=== PATIENT | female | born 1955 | race Caucasian/White ===

== ENCOUNTER 2023-01-30 06:46 | Inpatient (IN) | payer OTHER ==
--- OUTSIDE RECORDS SUMMARY | 2023-01-30 06:54 | XMS REPORT | Continuity of Care Document ---
:1955 Author Organization [facility] t Address [address] [facility] [address] [place] [address] Care Team Providers Name Role Phone Nini Sheppard Attending Clinician Unavailable Maria Esther Sheikh Attending Clinician Unavailable Radiology Attending Clinician Unavailable RADIOLOGY Attending Clinician Unavailable Doctor Unassigned, [place] Attending Clinician Unavailable Payers Payer Name Policy Type Policy Number Effective Date Expiration Date Ben vaughn UNITED 53 [id number] 2021 Common HEALTHCARE DUAL 00:00:00 Spirit - [facility] United 53 [id number] Common [facility] Spirit - [facility] Problems Condition Condition Condition Status Onset Resolution Last Treating Co mments Source Name Details Category Date Date Treatment Clinician Date [id number] Mixed Problem Common hyperlipid Spirit emia - [facility] Body mass BMI Problem Common index 40+ 50.0-59.9, Spi rit - severely adult - [facility] obese [facility] Mild Mild Problem Common chronic chronic Spirit obstructiv obstructiv - [facility]I [facility] pulmonary pulmonary [facility] Hypertensi HTN Problem Commo n on (hypertens Spirit ion) - [facility] Viral Viral Problem Common hepatitis hepatitis Spir it [facility] [id number] Cough Problem Common [facility] Depression Depression Problem C ommon [facility] [id number] Primary Problem Commo n osteoarthr Spirit itis of - [facility] both knees [facility] [id number] Unsteady Problem Commo n gait Spirit [facility] [id number] Neuropathy Problem C ommon [id number] involving Spirit both lower - [facility] extremitie [facility] [id number] Other Problem Common chronic Spirit pain [facility] [id number] Walker as Problem Com mon ambulation Spirit aid [facility] [id number] History of Problem Co mmon diabetes [facility] mellitus [facility] [id number] History of Problem Co mmon fall Spirit [facility] [id number] Morbid Problem Common obesity [facility] [id number] Yeast Problem Common infection Spirit of the [facility] skin [facility] [phone] COPD with Problem Com mon acute Spirit lower [facility] respirator [facility] infection [facility] [id number] COPD with Problem Comm on lower Spirit respirator - [facility] y [facility] [id number] Mixed Problem Common incontinen Spirit ce [facility] [phone] Need for Problem Comm on assistance Spirit due to - [facility]I unsteady [facility] Allergies, Adverse Reactions, Alerts Allergy Allergy Status Severity Reaction(s) Onset Inactive Treating Comm ents Source Name Type Date Date Clinician NO KNOWN Drug Active Univers [facility]ERGIE Class [facility] sulfacet sulfacet Active Unknown Commo n amide amide Spirit [facility] aspirin aspirin Active Unknown Common [facility] Social History Social Habit Start Date Stop Date Quantity Comments Source Exposure to SARS-CoV-2 Not sure [facility] History of Tobacco Use Co mmon [facility] Sex Assigned At Com mon Spirit [facility] Smoking Status Start Date Stop Date Source Unknown if ever smoked [facility] Former Smoker 2022-08-20 00:00:2022-08-20 00:00:00 Common S pirit - [facility]ter Never Smoker Common Spirit - [facility] Medications Ordered Filled Start Stop Current Ordering Indication Dosage Frequency Signature Comments Components Source Medication Medication Date Date Medication? Clinician (SIG) Name Name Ozempic (1 Ozempic (2021-11- No Ozempic (1 MG/DOSE) 2 MG/DOSE) 2 0-13 12-11 MG/DOSE) 2 MG/1.5ML MG/1.5ML 00:00: 00:00 MG/1.5ML 00 :00 Ozempic (1 Ozempic (2021-11- No Ozempic (1 MG/DOSE) 2 MG/DOSE) 2 0-13 12-11 MG/DOSE) 2 MG/1.5ML MG/1.5ML 00:00: 00:00 MG/1.5ML 00 :00 Ozempic (1 Ozempic (2021-11- No Ozempic (1 MG/DOSE) 2 MG/DOSE) 2 0-13 12-11 MG/DOSE) 2 MG/1.5ML MG/1.5ML 00:00: 00:00 MG/1.5ML 00 :00 Ozempic (1 Ozempic (2021-11- No Ozempic (1 MG/DOSE) 2 MG/DOSE) 2 0-13 12-11 MG/DOSE) 2 MG/1.5ML MG/1.5ML 00:00: 00:00 MG/1.5ML 00 :00 Ozempic (1 Ozempic (2021-11- No Ozempic (1 MG/DOSE) 2 MG/DOSE) 2 0-13 12-11 MG/DOSE) 2 MG/1.5ML MG/1.5ML 00:00: 00:00 MG/1.5ML 00 :00 Ozempic (1 Ozempic (2021-11- No Ozempic (1 MG/DOSE) 2 MG/DOSE) 2 0-13 12-11 MG/DOSE) 2 MG/1.5ML MG/1.5ML 00:00: 00:00 MG/1.5ML 00 :00 Ozempic (1 Ozempic (1 2021-11- No Ozempic (1 MG/DOSE) 2 MG/DOSE) 2 0-13 12-11 MG/DOSE) 2 MG/1.5ML MG/1.5ML 00:00: 00:00 MG/1.5ML 00 :00 Macrobid Macrobid 2021-11- No 1{capsu BID Macrobid 100 MG 100 MG 008-30 le_with 100 MG 00:00: 00:00 _food} 00 :00 Macrobid Macrobid 2021-11- No 1{capsu BID Macrobid 100 MG 100 MG 008-30 le_with 100 MG 00:00: 00:00 _food} 00 :00 Macrobid Macrobid 2021-11- No 1{capsu BID Macrobid 100 MG 100 MG 008-30 le_with 100 MG 00:00: 00:00 _food} 00 :00 Macrobid Macrobid 2021- No 1{capsu BID Macrobid 100 MG 100 MG 06-26 le_with 100 MG 00:00: 00:00 _food} 00 :00 Macrobid Macrobid 2021- No 1{capsu BID Macrobid 100 MG 100 MG 06-26 le_with 100 MG 00:00: 00:00 _food} 00 :00 Macrobid Macrobid 2021- No 1{capsu BID Macrobid 100 MG 100 MG 06-26 le_with 100 MG 00:00: 00:00 _food} 00 :00 Ketoconazol Ketoconazol 2021- No 1{appli BID Ketoconazo e 2 % e 2 % 06-20 cation_ le 2 % 00:00: 00:00 to_affe 00 :00 cted_ar ea} Ketoconazol Ketoconazol 2021- No 1{appli BID Ketoconazo e 2 % e 2 % 06-20 cation_ le 2 % 00:00: 00:00 to_affe 00 :00 cted_ar ea} Ketoconazol Ketoconazol 2021- No 1{appli BID Ketoconazo e 2 % e 2 % 807-04 cation_ le 2 % 00:00: 00:00 to_affe 00 :00 cted_ar ea} Ketoconazol Ketoconazol 2021- No 1{appli BID Ketoconazo e 2 % e 2 % 825 cation_ le 2 % 00:00: 00:00 to_affe 00 :00 cted_ar ea} Ketoconazol Ketoconazol 2021- No 1{appli BID Ketoconazo e 2 % e 2 % 807-04 cation_ le 2 % 00:00: 00:00 to_affe 00 :00 cted_ar ea} Ketoconazol Ketoconazol 2021- No 1{appli BID Ketoconazo e 2 % e 2 % 06-20 cation_ le 2 % 00:00: 00:00 to_affe 00 :00 cted_ar ea} Ketoconazol Ketoconazol 2021- No 1{appli BID Ketoconazo e 2 % e 2 % 06-20 cation_ le 2 % 00:00: 00:00 to_affe 00 :00 cted_ar ea} Albuterol Albuterol 2018-11 No TID Albuterol Sulfate Sulfate 2-06 Sulfate (2.5 (2.5 00:00: (2.5 MG/3ML) MG/3ML) 00 MG/3ML) 0.083% 0.083% 0.083% Albuterol Albuterol 2018-11 No TID Albuterol Sulfate Sulfate 2-06 Sulfate (2.5 (2.5 00:00: (2.5 MG/3ML) MG/3ML) 00 MG/3ML) 0.083% 0.083% 0.083% Albuterol Albuterol 2018-11 No TID Albuterol Sulfate Sulfate 2-06 Sulfate (2.5 (2.5 00:00: (2.5 MG/3ML) MG/3ML) 00 MG/3ML) 0.083% 0.083% 0.083% Albuterol Albuterol 2018-11 No TID Albuterol Sulfate Sulfate 2-06 Sulfate (2.5 (2.5 00:00: (2.5 MG/3ML) MG/3ML) 00 MG/3ML) 0.083% 0.083% 0.083% Albuterol Albuterol 2018-11 No TID Albuterol Sulfate Sulfate 2-06 Sulfate (2.5 (2.5 00:00: (2.5 MG/3ML) MG/3ML) 00 MG/3ML) 0.083% 0.083% 0.083% Albuterol Albuterol 2018-11 No TID Albuterol Sulfate Sulfate 2-06 Sulfate (2.5 (2.5 00:00: (2.5 MG/3ML) MG/3ML) 00 MG/3ML) 0.083% 0.083% 0.083% Albuterol Albuterol 2018-11 No TID Albuterol Sulfate Sulfate 2-06 Sulfate (2.5 (2.5 00:00: (2.5 MG/3ML) MG/3ML) 00 MG/3ML) 0.083% 0.083% 0.083% Albuterol Albuterol 2018-11 No TID Albuterol Sulfate Sulfate 2-06 Sulfate (2.5 (2.5 00:00: (2.5 MG/3ML) MG/3ML) 00 MG/3ML) 0.083% 0.083% 0.083% Albuterol Albuterol 2018-11 No TID Albuterol Sulfate Sulfate 2-06 Sulfate (2.5 (2.5 00:00: (2.5 MG/3ML) MG/3ML) 00 MG/3ML) 0.083% 0.083% 0.083% Albuterol Albuterol 2018-11 No TID Albuterol Sulfate Sulfate 2-06 Sulfate (2.5 (2.5 00:00: (2.5 MG/3ML) MG/3ML) 00 MG/3ML) 0.083% 0.083% 0.083% Albuterol Albuterol 2018-11 No TID Albuterol Sulfate Sulfate 2-06 Sulfate (2.5 (2.5 00:00: (2.5 MG/3ML) MG/3ML) 00 MG/3ML) 0.083% 0.083% 0.083% Albuterol Albuterol 2018-11 No TID Albuterol Sulfate Sulfate 2-06 Sulfate (2.5 (2.5 00:00: (2.5 MG/3ML) MG/3ML) 00 MG/3ML) 0.083% 0.083% 0.083% Albuterol Albuterol 2018-11 No TID Albuterol Sulfate Sulfate 2-06 Sulfate (2.5 (2.5 00:00: (2.5 MG/3ML) MG/3ML) 00 MG/3ML) 0.083% 0.083% 0.083% Albuterol Albuterol 2018-11 No TID Albuterol Sulfate Sulfate 2-06 Sulfate (2.5 (2.5 00:00: (2.5 MG/3ML) MG/3ML) 00 MG/3ML) 0.083% 0.083% 0.083% Albuterol Albuterol 2018-11 No TID Albuterol Sulfate Sulfate 2-06 Sulfate (2.5 (2.5 00:00: (2.5 MG/3ML) MG/3ML) 00 MG/3ML) 0.083% 0.083% 0.083% Albuterol Albuterol 2018-11 No TID Albuterol Sulfate Sulfate 2-06 Sulfate (2.5 (2.5 00:00: (2.5 MG/3ML) MG/3ML) 00 MG/3ML) 0.083% 0.083% 0.083% Albuterol Albuterol 2018-11 No TID Albuterol Sulfate Sulfate 2-06 Sulfate (2.5 (2.5 00:00: (2.5 MG/3ML) MG/3ML) 00 MG/3ML) 0.083% 0.083% 0.083% Albuterol Albuterol 2018-11 No TID Albuterol Sulfate Sulfate 2-06 Sulfate (2.5 (2.5 00:00: (2.5 MG/3ML) MG/3ML) 00 MG/3ML) 0.083% 0.083% 0.083% Albuterol Albuterol 2018-11 No TID Albuterol Sulfate Sulfate 2-06 Sulfate (2.5 (2.5 00:00: (2.5 MG/3ML) MG/3ML) 00 MG/3ML) 0.083% 0.083% 0.083% Albuterol Albuterol 2018-11 No TID Albuterol Sulfate Sulfate 2-06 Sulfate (2.5 (2.5 00:00: (2.5 MG/3ML) MG/3ML) 00 MG/3ML) 0.083% 0.083% 0.083% Albuterol Albuterol 2018-11 No TID Albuterol Sulfate Sulfate 2-06 Sulfate (2.5 (2.5 00:00: (2.5 MG/3ML) MG/3ML) 00 MG/3ML) 0.083% 0.083% 0.083% Albuterol Albuterol 2018-11 No TID Albuterol Sulfate Sulfate 2-06 Sulfate (2.5 (2.5 00:00: (2.5 MG/3ML) MG/3ML) 00 MG/3ML) 0.083% 0.083% 0.083% Albuterol Albuterol 2018-11 No TID Albuterol Sulfate Sulfate 2-06 Sulfate (2.5 (2.5 00:00: (2.5 MG/3ML) MG/3ML) 00 MG/3ML) 0.083% 0.083% 0.083% Albuterol Albuterol 2018-11 No TID Albuterol Sulfate Sulfate 2-06 Sulfate (2.5 (2.5 00:00: (2.5 MG/3ML) MG/3ML) 00 MG/3ML) 0.083% 0.083% 0.083% Albuterol Albuterol 2018-11 No TID Albuterol Sulfate Sulfate 2-06 Sulfate (2.5 (2.5 00:00: (2.5 MG/3ML) MG/3ML) 00 MG/3ML) 0.083% 0.083% 0.083% Albuterol Albuterol 2018-11 No TID Albuterol Sulfate Sulfate 2-06 Sulfate (2.5 (2.5 00:00: (2.5 MG/3ML) MG/3ML) 00 MG/3ML) 0.083% 0.083% 0.083% [facility] 40[facility] Common (Triamcinol (Triamcinol 9-13 S pirit one) one) 00:00: - [facility]I 00 [facility] Kenalog Kenalog 2019-0 No 40mg Common (Triamcinol (Triamcinol 9-13 S pirit one) one) 00:00: - CHI 00 [facility] Tu Kenalog 2019-0 No 40mg Common (Triamcinol (Triamcinol 9-13 S pirit one) one) 00:00: - CHI 00 [facility] 2019-0 No 40mg Common (Triamcinol (Triamcinol 9-13 S pirit one) one) 00:00: - CHI 00 [facility] 2019-0 No 40mg Common (Triamcinol (Triamcinol 9-13 S pirit one) one) 00:00: - CHI 00 [facility] Tu Kenalog 2019-0 No 40mg Common (Triamcinol (Triamcinol 9-13 S pirit one) one) 00:00: - CHI 00 [facility] Kenailyn Kenalog 2019-0 No 40mg Common (Triamcinol (Triamcinol 9-13 S pirit one) one) 00:00: - CHI 00 [facility] Kenailyn Kenalog 2019-0 No 40mg Common (Triamcinol (Triamcinol 9-13 S pirit one) one) 00:00: - CHI 00 [facility] Kenailyn Kenalog 2019-0 No 40mg Common (Triamcinol (Triamcinol 9-13 S pirit one) one) 00:00: - CHI 00 [facility] Ken[facility] 2019-0 No 40mg Common (Triamcinol (Triamcinol 9-13 S pirit one) one) 00:00: - CHI 00 [facility] Ken[facility] 2019-0 No 40mg Common (Triamcinol (Triamcinol 9-13 S pirit one) one) 00:00: - CHI 00 [facility] Kenalog Kenalog 2019-0 No 40mg Common (Triamcinol (Triamcinol 9-13 S pirit one) one) 00:00: - CHI 00 [facility] Kenalog Kenalog 2019-0 No 40mg Common (Triamcinol (Triamcinol 9-13 S pirit one) one) 00:00: - CHI 00 [facility] Kenalog Kenalog 2019-0 No 40mg Common (Triamcinol (Triamcinol 9-13 S pirit one) one) 00:00: - CHI 00 [facility] Kenalog Kenalog 2019-0 No 40mg Common (Triamcinol (Triamcinol 9-13 S pirit one) one) 00:00: - CHI 00 [facility] Kenalog Kenalog 2019-0 No 40mg Common (Triamcinol (Triamcinol 9-13 S pirit one) one) 00:00: - CHI 00 [facility] Kenalog Kenalog 2019-0 No 40mg Common (Triamcinol (Triamcinol 9-13 S pirit one) one) 00:00: - CHI 00 [facility] Kenalog Kenalog 2019-0 No 40mg Common (Triamcinol (Triamcinol 9-13 S pirit one) one) 00:00: - CHI 00 [facility] Kenalog Kenalog 2019-0 No 40mg Common (Triamcinol (Triamcinol 9-13 S pirit one) one) 00:00: - CHI 00 [facility] Kenalog Kenalog 2019-0 No 40mg Common (Triamcinol (Triamcinol 9-13 S pirit one) one) 00:00: - CHI 00 [facility] Kenalog Kenalog 2019-0 No 40mg Common (Triamcinol (Triamcinol 9-13 S pirit one) one) 00:00: - CHI 00 [facility] Kenalog Kenalog 2019-0 No 40mg Common (Triamcinol (Triamcinol 9-13 S pirit one) one) 00:00: - CHI 00 [facility] Kenalog Kenalog 2019-0 No 40mg Common (Triamcinol (Triamcinol 9-13 S pirit one) one) 00:00: - CHI 00 [facility] Tu Sheehanalog 2019-0 No 40mg Common (Triamcinol (Triamcinol 9-13 S pirit one) one) 00:00: - CHI 00 [facility] Tu Sheehanalog 2019-0 No 40mg Common (Triamcinol (Triamcinol 9-13 S pirit one) one) 00:00: - CHI 00 [facility] Nystatin Nystatin No 1{appli BID Nystatin 840272 [id number] cation_ 946305 UNIT/GM UNIT/GM to_affe UNIT/GM cted_ar ea} Mupirocin Mupirocin No 1{appli BID Mupirocin Calcium 2 % Calcium 2 % cation} Calcium 2 % Pantoprazol Pantoprazol No 1{table QD Pantoprazo e Sodium 40 e Sodium 40 t} le Sodium MG MG 40 MG Diclofenac Diclofenac No Diclofenac Sodium 75 Sodium 75 Sodium 75 MG MG MG TobraDex TobraDex No TID TobraDex 0.3-0.1 % 0.3-0.1 % 0.3-0.1 % Nystop Nystop No Nystop 368299 843257 [id number] UNIT/GM UNIT/GM UNIT/GM Trelegy Trelegy No Trelegy Ellipta Ellipta Ellipta 100-62.5-25 100-62.5-25 100-62.5-2 MCG/INH MCG/INH 5 MCG/INH Tessalon Tessalon No Tessalon Perles 100 Perles 100 Perles 100 Azelastine Azelastine No 1{drop_ BID Azelastine HCl 0.05 % HCl 0.05 % into_af HCl 0.05 % fected_ eye} Tobramycin Tobramycin No 1{drop_ 6xD Tobramycin 0.3 % 0.3 % into_af 0.3 % fected_ eye} Fluticasone Fluticasone No Fluticason Propionate Propionate e 50 MCG/ACT 50 MCG/ACT Propionate 50 MCG/ACT Mupirocin 2 Mupirocin 2 No Mupirocin % % 2 % Furosemide Furosemide No Furosemide 20 mg 20 mg 20 mg Diclofenac Diclofenac No 1{table BID Diclofenac Sodium 75 Sodium 75 t_with_ Sodium 75 MG MG food_or MG _milk} Atorvastati Atorvastati No Atorvastat n Calcium n Calcium in Calcium 20 MG 20 MG 20 MG Zolpidem Zolpidem No 1{table QD Zolpidem Tartrate ER Tartrate ER t_at_be Tartrate 12.5 MG 12.5 MG dtime_a ER 12.5 MG s_neede d} Pantoprazol Pantoprazol No 1{table QD Pantoprazo e Sodium 40 e Sodium 40 t} le Sodium MG MG 40 MG Gabapentin Gabapentin No 1{capsu TID Gabapentin 300 300 le} 300 Trelegy Trelegy No Trelegy Ellipta Ellipta Ellipta 100-62.5-25 100-62.5-25 100-62.5-2 MCG/INH MCG/INH 5 MCG/INH Diclofenac Diclofenac No Diclofenac Sodium 75 Sodium 75 Sodium 75 MG MG MG TobraDex TobraDex No TID TobraDex 0.3-0.1 % 0.3-0.1 % 0.3-0.1 % Flonase 50 Flonase 50 No 2{spray QD Flonase 50 MCG/ACT MCG/ACT _in_eac MCG/ACT h_nostr il} Anoro Anoro No Anoro Ellipta Ellipta Ellipta 62.5-25 62.5-25 62.5-25 MCG/INH MCG/INH MCG/INH Benicar 5 Benicar 5 No 1{table QD Benicar 5 MG MG t} MG FLUoxetine FLUoxetine No 1{capsu QD FLUoxetine HCl 40 MG HCl 40 MG le} HCl 40 MG Ozempic (2 Ozempic (2 No Ozempic (2 MG/DOSE) 8 MG/DOSE) 8 MG/DOSE) 8 MG/3ML MG/3ML MG/3ML DULoxetine DULoxetine No 1{capsu QD DULoxetine HCl 60 MG HCl 60 MG le} HCl 60 MG Nystop Nystop No Nystop 329639 [id number] 291783 UNIT/GM UNIT/GM UNIT/GM Proventil Proventil No 2{puffs QID Proventil HFA 108 (90 HFA 108 (90 _as_nee HFA 108 Base) Base) ded} (90 Base) MCG/ACT MCG/ACT MCG/ACT Potassium Potassium No Potassium Chloride ER Chloride ER Chloride 10 10 ER 10 Mupirocin Mupirocin No 1{appli BID Mupirocin Calcium 2 % Calcium 2 % cation} Calcium 2 % Zolpidem Zolpidem No 1{table QD Zolpidem Tartrate ER Tartrate ER t_at_be Tartrate 12.5 MG 12.5 MG dtime_a ER 12.5 MG s_neede d} Nystatin-Tr Nystatin-Tr No 1{appli Nystatin-T iamcinolone iamcinolone cation_ riamcinolo 176678-3.1 563329-2.1 to_affe ne UNIT/GM UNIT/GM cted_ar 158082-9.1 ea} UNIT/GM Gabapentin Gabapentin No 1{capsu TID Gabapentin 300 300 le} 300 Diclofenac Diclofenac No Diclofenac Sodium 75 Sodium 75 Sodium 75 MG MG MG DULoxetine DULoxetine No 1{capsu QD DULoxetine HCl 60 MG HCl 60 MG le} HCl 60 MG Azelastine Azelastine No 1{drop_ BID Azelastine HCl 0.05 % HCl 0.05 % into_af HCl 0.05 % fected_ eye} FLUoxetine FLUoxetine No 1{capsu QD FLUoxetine HCl 40 MG HCl 40 MG le} HCl 40 MG Benicar 5 Benicar 5 No 1{table QD Benicar 5 MG MG t} MG Nystop Nystop No Nystop 552005 433751 431122 UNIT/GM UNIT/GM UNIT/GM Fluticasone Fluticasone No Fluticason Propionate Propionate e 50 MCG/ACT 50 MCG/ACT Propionate 50 MCG/ACT Atorvastati Atorvastati No 1{table QD Atorvastat n Calcium n Calcium t} in Calcium 20 MG 20 MG 20 MG Mupirocin Mupirocin No 1{appli BID Mupirocin Calcium 2 % Calcium 2 % cation} Calcium 2 % Tessalon Tessalon No Tessalon Perles 100 Perles 100 Perles 100 Furosemide Furosemide No Furosemide 20 mg 20 mg 20 mg Tobramycin Tobramycin No 1{drop_ 6xD Tobramycin 0.3 % 0.3 % into_af 0.3 % fected_ eye} Nystatin Nystatin No 1{appli BID Nystatin 312122 169393 cation_ 025630 UNIT/GM UNIT/GM to_affe UNIT/GM cted_ar ea} Benzonatate Benzonatate No Benzonatat 100 MG 100 MG e 100 MG Flonase 50 Flonase 50 No 2{spray QD Flonase 50 MCG/ACT MCG/ACT _in_eac MCG/ACT h_nostr il} TobraDex TobraDex No TID TobraDex 0.3-0.1 % 0.3-0.1 % 0.3-0.1 % Proventil Proventil No 2{puffs QID Proventil HFA 108 (90 HFA 108 (90 _as_nee HFA 108 Base) Base) ded} (90 Base) MCG/ACT MCG/ACT MCG/ACT Pantoprazol Pantoprazol No 1{table QD Pantoprazo e Sodium 40 e Sodium 40 t} le Sodium MG MG 40 MG Anoro Anoro No Anoro Ellipta Ellipta Ellipta 62.5-25 62.5-25 62.5-25 MCG/INH MCG/INH MCG/INH Potassium Potassium No Potassium Chloride ER Chloride ER Chloride 10 10 ER 10 Mupirocin 2 Mupirocin 2 No Mupirocin % % 2 % Trelegy Trelegy No Trelegy Ellipta Ellipta Ellipta 100-62.5-25 100-62.5-25 100-62.5-2 MCG/INH MCG/INH 5 MCG/INH TobraDex TobraDex No TID TobraDex 0.3-0.1 % 0.3-0.1 % 0.3-0.1 % Mupirocin Mupirocin No 1{appli BID Mupirocin Calcium 2 % Calcium 2 % cation} Calcium 2 % Benzonatate Benzonatate No Benzonatat 100 MG 100 MG e 100 MG Nystop Nystop No Nystop 386774 444189 363224 UNIT/GM UNIT/GM UNIT/GM Azelastine Azelastine No 1{drop_ BID Azelastine HCl 0.05 % HCl 0.05 % into_af HCl 0.05 % fected_ eye} Gabapentin Gabapentin No 1{capsu TID Gabapentin 300 300 le} 300 Tobramycin Tobramycin No 1{drop_ 6xD Tobramycin 0.3 % 0.3 % into_af 0.3 % fected_ eye} Benicar 5 Benicar 5 No 1{table QD Benicar 5 MG MG t} MG Diclofenac Diclofenac No 1{table BID Diclofenac Sodium 75 Sodium 75 t_with_ Sodium 75 MG MG food_or MG _milk} Zolpidem Zolpidem No 1{table QD Zolpidem Tartrate ER Tartrate ER t_at_be Tartrate 12.5 MG 12.5 MG dtime_a ER 12.5 MG s_neede d} Nystatin-Tr Nystatin-Tr No 1{appli Nystatin-T iamcinolone iamcinolone cation_ riamcinolo 482422-3.1 944209-5.1 to_affe ne UNIT/GM UNIT/GM cted_ar 582861-3.1 ea} UNIT/GM Anoro Anoro No Anoro Ellipta Ellipta Ellipta 62.5-25 62.5-25 62.5-25 MCG/INH MCG/INH MCG/INH Proventil Proventil No 2{puffs QID Proventil HFA 108 (90 HFA 108 (90 _as_nee HFA 108 Base) Base) ded} (90 Base) MCG/ACT MCG/ACT MCG/ACT Tessalon Tessalon No Tessalon Perles 100 Perles 100 Perles 100 Diclofenac Diclofenac No Diclofenac Sodium 75 Sodium 75 Sodium 75 MG MG MG Trelegy Trelegy No Trelegy Ellipta Ellipta Ellipta 100-62.5-25 100-62.5-25 100-62.5-2 MCG/INH MCG/INH 5 MCG/INH DULoxetine DULoxetine No 1{capsu QD DULoxetine HCl 60 MG HCl 60 MG le} HCl 60 MG FLUoxetine FLUoxetine No 1{capsu QD FLUoxetine HCl 40 MG HCl 40 MG le} HCl 40 MG Nystop Nystop No Nystop 029811 785142 352030 UNIT/GM UNIT/GM UNIT/GM Mupirocin 2 Mupirocin 2 No Mupirocin % % 2 % Nystatin Nystatin No 1{appli BID Nystatin 291280 697281 cation_ 229379 UNIT/GM UNIT/GM to_affe UNIT/GM cted_ar ea} Potassium Potassium No Potassium Chloride ER Chloride ER Chloride 10 10 ER 10 Fluticasone Fluticasone No Fluticason Propionate Propionate e 50 MCG/ACT 50 MCG/ACT Propionate 50 MCG/ACT Furosemide Furosemide No Furosemide 20 mg 20 mg 20 mg Flonase 50 Flonase 50 No 2{spray QD Flonase 50 MCG/ACT MCG/ACT _in_eac MCG/ACT h_nostr il} Pantoprazol Pantoprazol No 1{table QD Pantoprazo e Sodium 40 e Sodium 40 t} le Sodium MG MG 40 MG Atorvastati Atorvastati No 1{table QD Atorvastat n Calcium n Calcium t} in Calcium 20 MG 20 MG 20 MG TobraDex TobraDex No TID TobraDex 0.3-0.1 % 0.3-0.1 % 0.3-0.1 % Mupirocin Mupirocin No 1{appli BID Mupirocin Calcium 2 % Calcium 2 % cation} Calcium 2 % Benzonatate Benzonatate No Benzonatat 100 MG 100 MG e 100 MG Nystop Nystop No Nystop 190899 [id number] UNIT/GM UNIT/GM UNIT/GM Azelastine Azelastine No 1{drop_ BID Azelastine HCl 0.05 % HCl 0.05 % into_af HCl 0.05 % fected_ eye} Gabapentin Gabapentin No 1{capsu TID Gabapentin 300 300 le} 300 Tobramycin Tobramycin No 1{drop_ 6xD Tobramycin 0.3 % 0.3 % into_af 0.3 % fected_ eye} Benicar 5 Benicar 5 No 1{table QD Benicar 5 MG MG t} MG Diclofenac Diclofenac No 1{table BID Diclofenac Sodium 75 Sodium 75 t_with_ Sodium 75 MG MG food_or MG _milk} Zolpidem Zolpidem No 1{table QD Zolpidem Tartrate ER Tartrate ER t_at_be Tartrate 12.5 MG 12.5 MG dtime_a ER 12.5 MG s_neede d} Nystatin-Tr Nystatin-Tr No 1{appli Nystatin-T iamcinolone iamcinolone cation_ riamcinolo 281192-7.1 971668-6.1 to_affe ne UNIT/GM UNIT/GM cted_ar 778268-4.1 ea} UNIT/GM Anoro Anoro No Anoro Ellipta Ellipta Ellipta 62.5-25 62.5-25 62.5-25 MCG/INH MCG/INH MCG/INH Proventil Proventil No 2{puffs QID Proventil HFA 108 (90 HFA 108 (90 _as_nee HFA 108 Base) Base) ded} (90 Base) MCG/ACT MCG/ACT MCG/ACT Tessalon Tessalon No Tessalon Perles 100 Perles 100 Perles 100 Diclofenac Diclofenac No Diclofenac Sodium 75 Sodium 75 Sodium 75 MG MG MG Trelegy Trelegy No Trelegy Ellipta Ellipta Ellipta 100-62.5-25 100-62.5-25 100-62.5-2 MCG/INH MCG/INH 5 MCG/INH DULoxetine DULoxetine No 1{capsu QD DULoxetine HCl 60 MG HCl 60 MG le} HCl 60 MG FLUoxetine FLUoxetine No 1{capsu QD FLUoxetine HCl 40 MG HCl 40 MG le} HCl 40 MG Nystop Nystop No Nystop [id number] UNIT/GM UNIT/GM UNIT/GM Mupirocin 2 Mupirocin 2 No Mupirocin % % 2 % Nystatin Nystatin No 1{appli BID Nystatin 026809 [id number] cation_ [id number] UNIT/GM UNIT/GM to_affe UNIT/GM cted_ar ea} Potassium Potassium No Potassium Chloride ER Chloride ER Chloride 10 10 ER 10 Fluticasone Fluticasone No Fluticason Propionate Propionate e 50 MCG/ACT 50 MCG/ACT Propionate 50 MCG/ACT Furosemide Furosemide No Furosemide 20 mg 20 mg 20 mg Flonase 50 Flonase 50 No 2{spray QD Flonase 50 MCG/ACT MCG/ACT _in_eac MCG/ACT h_nostr il} Pantoprazol Pantoprazol No 1{table QD Pantoprazo e Sodium 40 e Sodium 40 t} le Sodium MG MG 40 MG Atorvastati Atorvastati No 1{table QD Atorvastat n Calcium n Calcium t} in Calcium 20 MG 20 MG 20 MG Tessalon Tessalon No Tessalon Perles 100 Perles 100 Perles 100 Furosemide Furosemide No Furosemide 20 mg 20 mg 20 mg Atorvastati Atorvastati No 1{table QD Atorvastat n Calcium n Calcium t} in Calcium 20 MG 20 MG 20 MG Flonase 50 Flonase 50 No 2{spray QD Flonase 50 MCG/ACT MCG/ACT _in_eac MCG/ACT h_nostr il} Potassium Potassium No Potassium Chloride ER Chloride ER Chloride 10 10 ER 10 Nystatin Nystatin No 1{appli BID Nystatin 410082 138836 cation_ 097414 UNIT/GM UNIT/GM to_affe UNIT/GM cted_ar ea} Anoro Anoro No Anoro Ellipta Ellipta Ellipta 62.5-25 62.5-25 62.5-25 MCG/INH MCG/INH MCG/INH Nystatin-Tr Nystatin-Tr No 1{appli Nystatin-T iamcinolone iamcinolone cation_ riamcinolo 076129-2.1 968200-3.1 to_affe ne UNIT/GM UNIT/GM cted_ar 482461-1.1 ea} UNIT/GM Trelegy Trelegy No Trelegy Ellipta Ellipta Ellipta 100-62.5-25 100-62.5-25 100-62.5-2 MCG/INH MCG/INH 5 MCG/INH DULoxetine DULoxetine No 1{capsu QD DULoxetine HCl 60 MG HCl 60 MG le} HCl 60 MG Diclofenac Diclofenac No Diclofenac Sodium 75 Sodium 75 Sodium 75 MG MG MG TobraDex TobraDex No TID TobraDex 0.3-0.1 % 0.3-0.1 % 0.3-0.1 % FLUoxetine FLUoxetine No 1{capsu QD FLUoxetine HCl 40 MG HCl 40 MG le} HCl 40 MG Nystop Nystop No Nystop 837984 759818 [id number] UNIT/GM UNIT/GM UNIT/GM Benzonatate Benzonatate No Benzonatat 100 MG 100 MG e 100 MG Gabapentin Gabapentin No 1{capsu TID Gabapentin 300 300 le} 300 Zolpidem Zolpidem No 1{table QD Zolpidem Tartrate ER Tartrate ER t_at_be Tartrate 12.5 MG 12.5 MG dtime_a ER 12.5 MG s_neede d} Mupirocin 2 Mupirocin 2 No Mupirocin % % 2 % Fluticasone Fluticasone No Fluticason Propionate Propionate e 50 MCG/ACT 50 MCG/ACT Propionate 50 MCG/ACT Nystop Nystop No Nystop 628562 790996 178565 UNIT/GM UNIT/GM UNIT/GM Pantoprazol Pantoprazol No 1{table QD Pantoprazo e Sodium 40 e Sodium 40 t} le Sodium MG MG 40 MG Diclofenac Diclofenac No 1{table BID Diclofenac Sodium 75 Sodium 75 t_with_ Sodium 75 MG MG food_or MG _milk} Benicar 5 Benicar 5 No 1{table QD Benicar 5 MG MG t} MG Tobramycin Tobramycin No 1{drop_ 6xD Tobramycin 0.3 % 0.3 % into_af 0.3 % fected_ eye} Mupirocin Mupirocin No 1{appli BID Mupirocin Calcium 2 % Calcium 2 % cation} Calcium 2 % Azelastine Azelastine No 1{drop_ BID Azelastine HCl 0.05 % HCl 0.05 % into_af HCl 0.05 % fected_ eye} Proventil Proventil No 2{puffs QID Proventil HFA 108 (90 HFA 108 (90 _as_nee HFA 108 Base) Base) ded} (90 Base) MCG/ACT MCG/ACT MCG/ACT Tessalon Tessalon No Tessalon Perles 100 Perles 100 Perles 100 Furosemide Furosemide No Furosemide 20 mg 20 mg 20 mg Atorvastati Atorvastati No 1{table QD Atorvastat n Calcium n Calcium t} in Calcium 20 MG 20 MG 20 MG Flonase 50 Flonase 50 No 2{spray QD Flonase 50 MCG/ACT MCG/ACT _in_eac MCG/ACT h_nostr il} Potassium Potassium No Potassium Chloride ER Chloride ER Chloride 10 10 ER 10 Nystatin Nystatin No 1{appli BID Nystatin 944470 997836 cation_ 495221 UNIT/GM UNIT/GM to_affe UNIT/GM cted_ar ea} Anoro Anoro No Anoro Ellipta Ellipta Ellipta 62.5-25 62.5-25 62.5-25 MCG/INH MCG/INH MCG/INH Nystatin-Tr Nystatin-Tr No 1{appli Nystatin-T iamcinolone iamcinolone cation_ riamcinolo 093058-7.1 802274-3.1 to_affe ne UNIT/GM UNIT/GM cted_ar 460225-8.1 ea} UNIT/GM Trelegy Trelegy No Trelegy Ellipta Ellipta Ellipta 100-62.5-25 100-62.5-25 100-62.5-2 MCG/INH MCG/INH 5 MCG/INH DULoxetine DULoxetine No 1{capsu QD DULoxetine HCl 60 MG HCl 60 MG le} HCl 60 MG Diclofenac Diclofenac No Diclofenac Sodium 75 Sodium 75 Sodium 75 MG MG MG TobraDex TobraDex No TID TobraDex 0.3-0.1 % 0.3-0.1 % 0.3-0.1 % FLUoxetine FLUoxetine No 1{capsu QD FLUoxetine HCl 40 MG HCl 40 MG le} HCl 40 MG Nystop Nystop No Nystop 947730 243966 507430 UNIT/GM UNIT/GM UNIT/GM Benzonatate Benzonatate No Benzonatat 100 MG 100 MG e 100 MG Gabapentin Gabapentin No 1{capsu TID Gabapentin 300 300 le} 300 Zolpidem Zolpidem No 1{table QD Zolpidem Tartrate ER Tartrate ER t_at_be Tartrate 12.5 MG 12.5 MG dtime_a ER 12.5 MG s_neede d} Mupirocin 2 Mupirocin 2 No Mupirocin % % 2 % Fluticasone Fluticasone No Fluticason Propionate Propionate e 50 MCG/ACT 50 MCG/ACT Propionate 50 MCG/ACT Nystop Nystop No Nystop 785420 170994 719518 UNIT/GM UNIT/GM UNIT/GM Pantoprazol Pantoprazol No 1{table QD Pantoprazo e Sodium 40 e Sodium 40 t} le Sodium MG MG 40 MG Diclofenac Diclofenac No 1{table BID Diclofenac Sodium 75 Sodium 75 t_with_ Sodium 75 MG MG food_or MG _milk} Benicar 5 Benicar 5 No 1{table QD Benicar 5 MG MG t} MG Tobramycin Tobramycin No 1{drop_ 6xD Tobramycin 0.3 % 0.3 % into_af 0.3 % fected_ eye} Mupirocin Mupirocin No 1{appli BID Mupirocin Calcium 2 % Calcium 2 % cation} Calcium 2 % Azelastine Azelastine No 1{drop_ BID Azelastine HCl 0.05 % HCl 0.05 % into_af HCl 0.05 % fected_ eye} Proventil Proventil No 2{puffs QID Proventil HFA 108 (90 HFA 108 (90 _as_nee HFA 108 Base) Base) ded} (90 Base) MCG/ACT MCG/ACT MCG/ACT Diclofenac Diclofenac No 1{table BID Diclofenac Sodium 75 Sodium 75 t_with_ Sodium 75 MG MG food_or MG _milk} Azelastine Azelastine No 1{drop_ BID Azelastine HCl 0.05 % HCl 0.05 % into_af HCl 0.05 % fected_ eye} Fluticasone Fluticasone No Fluticason Propionate Propionate e 50 MCG/ACT 50 MCG/ACT Propionate 50 MCG/ACT Tessalon Tessalon No Tessalon Perles 100 Perles 100 Perles 100 Nystatin-Tr Nystatin-Tr No 1{appli Nystatin-T iamcinolone iamcinolone cation_ riamcinolo 658960-2.1 299148-3.1 to_affe ne UNIT/GM UNIT/GM cted_ar 942879-0.1 ea} UNIT/GM Benzonatate Benzonatate No Benzonatat 100 MG 100 MG e 100 MG Diclofenac Diclofenac No Diclofenac Sodium 75 Sodium 75 Sodium 75 MG MG MG Mupirocin 2 Mupirocin 2 No Mupirocin % % 2 % Trelegy Trelegy No Trelegy Ellipta Ellipta Ellipta 100-62.5-25 100-62.5-25 100-62.5-2 MCG/INH MCG/INH 5 MCG/INH Nystop Nystop No Nystop 748704 854358 115458 UNIT/GM UNIT/GM UNIT/GM Nystop Nystop No Nystop 059657 480099 323557 UNIT/GM UNIT/GM UNIT/GM Potassium Potassium No Potassium Chloride ER Chloride ER Chloride 10 10 ER 10 Anoro Anoro No Anoro Ellipta Ellipta Ellipta 62.5-25 62.5-25 62.5-25 MCG/INH MCG/INH MCG/INH Gabapentin Gabapentin No 1{capsu TID Gabapentin 300 300 le} 300 Furosemide Furosemide No Furosemide 20 mg 20 mg 20 mg Mupirocin Mupirocin No 1{appli BID Mupirocin Calcium 2 % Calcium 2 % cation} Calcium 2 % Flonase 50 Flonase 50 No 2{spray QD Flonase 50 MCG/ACT MCG/ACT _in_eac MCG/ACT h_nostr il} Tobramycin Tobramycin No 1{drop_ 6xD Tobramycin 0.3 % 0.3 % into_af 0.3 % fected_ eye} Nystatin Nystatin No 1{appli BID Nystatin 057986 047145 cation_ 121118 UNIT/GM UNIT/GM to_affe UNIT/GM cted_ar ea} Benicar 5 Benicar 5 No 1{table QD Benicar 5 MG MG t} MG Proventil Proventil No 2{puffs QID Proventil HFA 108 (90 HFA 108 (90 _as_nee HFA 108 Base) Base) ded} (90 Base) MCG/ACT MCG/ACT MCG/ACT DULoxetine DULoxetine No 1{capsu QD DULoxetine HCl 60 MG HCl 60 MG le} HCl 60 MG FLUoxetine FLUoxetine No 1{capsu QD FLUoxetine HCl 40 MG HCl 40 MG le} HCl 40 MG Zolpidem Zolpidem No 1{table QD Zolpidem Tartrate ER Tartrate ER t_at_be Tartrate 12.5 MG 12.5 MG dtime_a ER 12.5 MG s_neede d} Atorvastati Atorvastati No 1{table QD Atorvastat n Calcium n Calcium t} in Calcium 20 MG 20 MG 20 MG Pantoprazol Pantoprazol No 1{table QD Pantoprazo e Sodium 40 e Sodium 40 t} le Sodium MG MG 40 MG TobraDex TobraDex No TID TobraDex 0.3-0.1 % 0.3-0.1 % 0.3-0.1 % Benzonatate Benzonatate No Benzonatat 100 MG 100 MG e 100 MG DULoxetine DULoxetine No 1{capsu QD DULoxetine HCl 60 MG HCl 60 MG le} HCl 60 MG Nystatin Nystatin No 1{appli BID Nystatin 538516 304106 cation_ 020178 UNIT/GM UNIT/GM to_affe UNIT/GM cted_ar ea} Nystop Nystop No Nystop 059878 782207 989190 UNIT/GM UNIT/GM UNIT/GM Proventil Proventil No 2{puffs QID Proventil HFA 108 (90 HFA 108 (90 _as_nee HFA 108 Base) Base) ded} (90 Base) MCG/ACT MCG/ACT MCG/ACT Anoro Anoro No Anoro Ellipta Ellipta Ellipta 62.5-25 62.5-25 62.5-25 MCG/INH MCG/INH MCG/INH Mupirocin 2 Mupirocin 2 No Mupirocin % % 2 % Potassium Potassium No Potassium Chloride ER Chloride ER Chloride 10 10 ER 10 Flonase 50 Flonase 50 No 2{spray QD Flonase 50 MCG/ACT MCG/ACT _in_eac MCG/ACT h_nostr il} Atorvastati Atorvastati No 1{table QD Atorvastat n Calcium n Calcium t} in Calcium 20 MG 20 MG 20 MG Furosemide Furosemide No Furosemide 20 mg 20 mg 20 mg Tobramycin Tobramycin No 1{drop_ 6xD Tobramycin 0.3 % 0.3 % into_af 0.3 % fected_ eye} Gabapentin Gabapentin No 1{capsu TID Gabapentin 300 300 le} 300 Azelastine Azelastine No 1{drop_ BID Azelastine HCl 0.05 % HCl 0.05 % into_af HCl 0.05 % fected_ eye} Zolpidem Zolpidem No 1{table QD Zolpidem Tartrate ER Tartrate ER t_at_be Tartrate 12.5 MG 12.5 MG dtime_a ER 12.5 MG s_neede d} FLUoxetine FLUoxetine No 1{capsu QD FLUoxetine HCl 40 MG HCl 40 MG le} HCl 40 MG Tessalon Tessalon No Tessalon Perles 100 Perles 100 Perles 100 Fluticasone Fluticasone No Fluticason Propionate Propionate e 50 MCG/ACT 50 MCG/ACT Propionate 50 MCG/ACT Diclofenac Diclofenac No 1{table BID Diclofenac Sodium 75 Sodium 75 t_with_ Sodium 75 MG MG food_or MG _milk} Benicar 5 Benicar 5 No 1{table QD Benicar 5 MG MG t} MG Mupirocin Mupirocin No 1{appli BID Mupirocin Calcium 2 % Calcium 2 % cation} Calcium 2 % Pantoprazol Pantoprazol No 1{table QD Pantoprazo e Sodium 40 e Sodium 40 t} le Sodium MG MG 40 MG Nystop Nystop No Nystop 506190 429069 562796 UNIT/GM UNIT/GM UNIT/GM TobraDex TobraDex No TID TobraDex 0.3-0.1 % 0.3-0.1 % 0.3-0.1 % Trelegy Trelegy No Trelegy Ellipta Ellipta Ellipta 100-62.5-25 100-62.5-25 100-62.5-2 MCG/INH MCG/INH 5 MCG/INH Diclofenac Diclofenac No Diclofenac Sodium 75 Sodium 75 Sodium 75 MG MG MG Nystatin Nystatin No 1{appli BID Nystatin 239980 350203 cation_ 241820 UNIT/GM UNIT/GM to_affe UNIT/GM cted_ar ea} DULoxetine DULoxetine No 1{capsu QD DULoxetine HCl 60 MG HCl 60 MG le} HCl 60 MG Atorvastati Atorvastati No 1{table QD Atorvastat n Calcium n Calcium t} in Calcium 20 MG 20 MG 20 MG Proventil Proventil No 2{puffs QID Proventil HFA 108 (90 HFA 108 (90 _as_nee HFA 108 Base) Base) ded} (90 Base) MCG/ACT MCG/ACT MCG/ACT Anoro Anoro No Anoro Ellipta Ellipta Ellipta 62.5-25 62.5-25 62.5-25 MCG/INH MCG/INH MCG/INH Mupirocin 2 Mupirocin 2 No Mupirocin % % 2 % Potassium Potassium No Potassium Chloride ER Chloride ER Chloride 10 10 ER 10 Flonase 50 Flonase 50 No 2{spray QD Flonase 50 MCG/ACT MCG/ACT _in_eac MCG/ACT h_nostr il} Fluticasone Fluticasone No Fluticason Propionate Propionate e 50 MCG/ACT 50 MCG/ACT Propionate 50 MCG/ACT Furosemide Furosemide No Furosemide 20 mg 20 mg 20 mg Mupirocin Mupirocin No 1{appli BID Mupirocin Calcium 2 % Calcium 2 % cation} Calcium 2 % Pantoprazol Pantoprazol No 1{table QD Pantoprazo e Sodium 40 e Sodium 40 t} le Sodium MG MG 40 MG Tessalon Tessalon No Tessalon Perles 100 Perles 100 Perles 100 Diclofenac Diclofenac No 1{table BID Diclofenac Sodium 75 Sodium 75 t_with_ Sodium 75 MG MG food_or MG _milk} Benicar 5 Benicar 5 No 1{table QD Benicar 5 MG MG t} MG Tobramycin Tobramycin No 1{drop_ 6xD Tobramycin 0.3 % 0.3 % into_af 0.3 % fected_ eye} Zolpidem Zolpidem No 1{table QD Zolpidem Tartrate ER Tartrate ER t_at_be Tartrate 12.5 MG 12.5 MG dtime_a ER 12.5 MG s_neede d} Nystop Nystop No Nystop 330065 641086 890283 UNIT/GM UNIT/GM UNIT/GM Gabapentin Gabapentin No 1{capsu TID Gabapentin 300 300 le} 300 Azelastine Azelastine No 1{drop_ BID Azelastine HCl 0.05 % HCl 0.05 % into_af HCl 0.05 % fected_ eye} FLUoxetine FLUoxetine No 1{capsu QD FLUoxetine HCl 40 MG HCl 40 MG le} HCl 40 MG TobraDex TobraDex No TID TobraDex 0.3-0.1 % 0.3-0.1 % 0.3-0.1 % Nystop Nystop No Nystop 796267 380526 384590 UNIT/GM UNIT/GM UNIT/GM Trelegy Trelegy No Trelegy Ellipta Ellipta Ellipta 100-62.5-25 100-62.5-25 100-62.5-2 MCG/INH MCG/INH 5 MCG/INH Diclofenac Diclofenac No Diclofenac Sodium 75 Sodium 75 Sodium 75 MG MG MG Nystatin Nystatin No 1{appli BID Nystatin 573298 011468 cation_ 414311 UNIT/GM UNIT/GM to_affe UNIT/GM cted_ar ea} DULoxetine DULoxetine No 1{capsu QD DULoxetine HCl 60 MG HCl 60 MG le} HCl 60 MG Atorvastati Atorvastati No 1{table QD Atorvastat n Calcium n Calcium t} in Calcium 20 MG 20 MG 20 MG Proventil Proventil No 2{puffs QID Proventil HFA 108 (90 HFA 108 (90 _as_nee HFA 108 Base) Base) ded} (90 Base) MCG/ACT MCG/ACT MCG/ACT Anoro Anoro No Anoro Ellipta Ellipta Ellipta 62.5-25 62.5-25 62.5-25 MCG/INH MCG/INH MCG/INH Mupirocin 2 Mupirocin 2 No Mupirocin % % 2 % Potassium Potassium No Potassium Chloride ER Chloride ER Chloride 10 10 ER 10 Flonase 50 Flonase 50 No 2{spray QD Flonase 50 MCG/ACT MCG/ACT _in_eac MCG/ACT h_nostr il} Fluticasone Fluticasone No Fluticason Propionate Propionate e 50 MCG/ACT 50 MCG/ACT Propionate 50 MCG/ACT Furosemide Furosemide No Furosemide 20 mg 20 mg 20 mg Mupirocin Mupirocin No 1{appli BID Mupirocin Calcium 2 % Calcium 2 % cation} Calcium 2 % Pantoprazol Pantoprazol No 1{table QD Pantoprazo e Sodium 40 e Sodium 40 t} le Sodium MG MG 40 MG Tessalon Tessalon No Tessalon Perles 100 Perles 100 Perles 100 Diclofenac Diclofenac No 1{table BID Diclofenac Sodium 75 Sodium 75 t_with_ Sodium 75 MG MG food_or MG _milk} Benicar 5 Benicar 5 No 1{table QD Benicar 5 MG MG t} MG Tobramycin Tobramycin No 1{drop_ 6xD Tobramycin 0.3 % 0.3 % into_af 0.3 % fected_ eye} Zolpidem Zolpidem No 1{table QD Zolpidem Tartrate ER Tartrate ER t_at_be Tartrate 12.5 MG 12.5 MG dtime_a ER 12.5 MG s_neede d} Nystop Nystop No Nystop 983607 857929 292581 UNIT/GM UNIT/GM UNIT/GM Gabapentin Gabapentin No 1{capsu TID Gabapentin 300 300 le} 300 Azelastine Azelastine No 1{drop_ BID Azelastine HCl 0.05 % HCl 0.05 % into_af HCl 0.05 % fected_ eye} FLUoxetine FLUoxetine No 1{capsu QD FLUoxetine HCl 40 MG HCl 40 MG le} HCl 40 MG TobraDex TobraDex No TID TobraDex 0.3-0.1 % 0.3-0.1 % 0.3-0.1 % Nystop Nystop No Nystop 921731 752589 351320 UNIT/GM UNIT/GM UNIT/GM Trelegy Trelegy No Trelegy Ellipta Ellipta Ellipta 100-62.5-25 100-62.5-25 100-62.5-2 MCG/INH MCG/INH 5 MCG/INH Diclofenac Diclofenac No Diclofenac Sodium 75 Sodium 75 Sodium 75 MG MG MG Nystatin Nystatin No 1{appli BID Nystatin 078597 000279 cation_ 920874 UNIT/GM UNIT/GM to_affe UNIT/GM cted_ar ea} DULoxetine DULoxetine No 1{capsu QD DULoxetine HCl 60 MG HCl 60 MG le} HCl 60 MG Atorvastati Atorvastati No 1{table QD Atorvastat n Calcium n Calcium t} in Calcium 20 MG 20 MG 20 MG Proventil Proventil No 2{puffs QID Proventil HFA 108 (90 HFA 108 (90 _as_nee HFA 108 Base) Base) ded} (90 Base) MCG/ACT MCG/ACT MCG/ACT Anoro Anoro No Anoro Ellipta Ellipta Ellipta 62.5-25 62.5-25 62.5-25 MCG/INH MCG/INH MCG/INH Mupirocin 2 Mupirocin 2 No Mupirocin % % 2 % Potassium Potassium No Potassium Chloride ER Chloride ER Chloride 10 10 ER 10 Flonase 50 Flonase 50 No 2{spray QD Flonase 50 MCG/ACT MCG/ACT _in_eac MCG/ACT h_nostr il} Fluticasone Fluticasone No Fluticason Propionate Propionate e 50 MCG/ACT 50 MCG/ACT Propionate 50 MCG/ACT Furosemide Furosemide No Furosemide 20 mg 20 mg 20 mg Mupirocin Mupirocin No 1{appli BID Mupirocin Calcium 2 % Calcium 2 % cation} Calcium 2 % Pantoprazol Pantoprazol No 1{table QD Pantoprazo e Sodium 40 e Sodium 40 t} le Sodium MG MG 40 MG Tessalon Tessalon No Tessalon Perles 100 Perles 100 Perles 100 Diclofenac Diclofenac No 1{table BID Diclofenac Sodium 75 Sodium 75 t_with_ Sodium 75 MG MG food_or MG _milk} Benicar 5 Benicar 5 No 1{table QD Benicar 5 MG MG t} MG Tobramycin Tobramycin No 1{drop_ 6xD Tobramycin 0.3 % 0.3 % into_af 0.3 % fected_ eye} Zolpidem Zolpidem No 1{table QD Zolpidem Tartrate ER Tartrate ER t_at_be Tartrate 12.5 MG 12.5 MG dtime_a ER 12.5 MG s_neede d} Nystop Nystop No Nystop 083529 849301 703713 UNIT/GM UNIT/GM UNIT/GM Gabapentin Gabapentin No 1{capsu TID Gabapentin 300 300 le} 300 Azelastine Azelastine No 1{drop_ BID Azelastine HCl 0.05 % HCl 0.05 % into_af HCl 0.05 % fected_ eye} FLUoxetine FLUoxetine No 1{capsu QD FLUoxetine HCl 40 MG HCl 40 MG le} HCl 40 MG TobraDex TobraDex No TID TobraDex 0.3-0.1 % 0.3-0.1 % 0.3-0.1 % Nystop Nystop No Nystop 908050 405757 197046 UNIT/GM UNIT/GM UNIT/GM Trelegy Trelegy No Trelegy Ellipta Ellipta Ellipta 100-62.5-25 100-62.5-25 100-62.5-2 MCG/INH MCG/INH 5 MCG/INH Diclofenac Diclofenac No Diclofenac Sodium 75 Sodium 75 Sodium 75 MG MG MG Nystatin Nystatin No 1{appli BID Nystatin 148591 899683 cation_ 346528 UNIT/GM UNIT/GM to_affe UNIT/GM cted_ar ea} DULoxetine DULoxetine No 1{capsu QD DULoxetine HCl 60 MG HCl 60 MG le} HCl 60 MG Atorvastati Atorvastati No 1{table QD Atorvastat n Calcium n Calcium t} in Calcium 20 MG 20 MG 20 MG Proventil Proventil No 2{puffs QID Proventil HFA 108 (90 HFA 108 (90 _as_nee HFA 108 Base) Base) ded} (90 Base) MCG/ACT MCG/ACT MCG/ACT Anoro Anoro No Anoro Ellipta Ellipta Ellipta 62.5-25 62.5-25 62.5-25 MCG/INH MCG/INH MCG/INH Mupirocin 2 Mupirocin 2 No Mupirocin % % 2 % Potassium Potassium No Potassium Chloride ER Chloride ER Chloride 10 10 ER 10 Furosemide Furosemide No Furosemide 20 mg 20 mg 20 mg Fluticasone Fluticasone No Fluticason Propionate Propionate e 50 MCG/ACT 50 MCG/ACT Propionate 50 MCG/ACT Flonase 50 Flonase 50 No 2{spray QD Flonase 50 MCG/ACT MCG/ACT _in_eac MCG/ACT h_nostr il} Mupirocin Mupirocin No 1{appli BID Mupirocin Calcium 2 % Calcium 2 % cation} Calcium 2 % Pantoprazol Pantoprazol No 1{table QD Pantoprazo e Sodium 40 e Sodium 40 t} le Sodium MG MG 40 MG Tessalon Tessalon No Tessalon Perles 100 Perles 100 Perles 100 Diclofenac Diclofenac No 1{table BID Diclofenac Sodium 75 Sodium 75 t_with_ Sodium 75 MG MG food_or MG _milk} Benicar 5 Benicar 5 No 1{table QD Benicar 5 MG MG t} MG Tobramycin Tobramycin No 1{drop_ 6xD Tobramycin 0.3 % 0.3 % into_af 0.3 % fected_ eye} Zolpidem Zolpidem No 1{table QD Zolpidem Tartrate ER Tartrate ER t_at_be Tartrate 12.5 MG 12.5 MG dtime_a ER 12.5 MG s_neede d} Nystop Nystop No Nystop 613502 246566 809626 UNIT/GM UNIT/GM UNIT/GM Gabapentin Gabapentin No 1{capsu TID Gabapentin 300 300 le} 300 Azelastine Azelastine No 1{drop_ BID Azelastine HCl 0.05 % HCl 0.05 % into_af HCl 0.05 % fected_ eye} FLUoxetine FLUoxetine No 1{capsu QD FLUoxetine HCl 40 MG HCl 40 MG le} HCl 40 MG TobraDex TobraDex No TID TobraDex 0.3-0.1 % 0.3-0.1 % 0.3-0.1 % Nystop Nystop No Nystop 378940 029292 012606 UNIT/GM UNIT/GM UNIT/GM Trelegy Trelegy No Trelegy Ellipta Ellipta Ellipta 100-62.5-25 100-62.5-25 100-62.5-2 MCG/INH MCG/INH 5 MCG/INH Diclofenac Diclofenac No Diclofenac Sodium 75 Sodium 75 Sodium 75 MG MG MG Nystatin Nystatin No 1{appli BID Nystatin 732675 460550 cation_ 694574 UNIT/GM UNIT/GM to_affe UNIT/GM cted_ar ea} DULoxetine DULoxetine No 1{capsu QD DULoxetine HCl 60 MG HCl 60 MG le} HCl 60 MG Atorvastati Atorvastati No 1{table QD Atorvastat n Calcium n Calcium t} in Calcium 20 MG 20 MG 20 MG Proventil Proventil No 2{puffs QID Proventil HFA 108 (90 HFA 108 (90 _as_nee HFA 108 Base) Base) ded} (90 Base) MCG/ACT MCG/ACT MCG/ACT Anoro Anoro No Anoro Ellipta Ellipta Ellipta 62.5-25 62.5-25 62.5-25 MCG/INH MCG/INH MCG/INH Mupirocin 2 Mupirocin 2 No Mupirocin % % 2 % Potassium Potassium No Potassium Chloride ER Chloride ER Chloride 10 10 ER 10 Furosemide Furosemide No Furosemide 20 mg 20 mg 20 mg Fluticasone Fluticasone No Fluticason Propionate Propionate e 50 MCG/ACT 50 MCG/ACT Propionate 50 MCG/ACT Flonase 50 Flonase 50 No 2{spray QD Flonase 50 MCG/ACT MCG/ACT _in_eac MCG/ACT h_nostr il} Mupirocin Mupirocin No 1{appli BID Mupirocin Calcium 2 % Calcium 2 % cation} Calcium 2 % Pantoprazol Pantoprazol No 1{table QD Pantoprazo e Sodium 40 e Sodium 40 t} le Sodium MG MG 40 MG Tessalon Tessalon No Tessalon Perles 100 Perles 100 Perles 100 Diclofenac Diclofenac No 1{table BID Diclofenac Sodium 75 Sodium 75 t_with_ Sodium 75 MG MG food_or MG _milk} Benicar 5 Benicar 5 No 1{table QD Benicar 5 MG MG t} MG Tobramycin Tobramycin No 1{drop_ 6xD Tobramycin 0.3 % 0.3 % into_af 0.3 % fected_ eye} Zolpidem Zolpidem No 1{table QD Zolpidem Tartrate ER Tartrate ER t_at_be Tartrate 12.5 MG 12.5 MG dtime_a ER 12.5 MG s_neede d} Nystop Nystop No Nystop 713859 169908 915055 UNIT/GM UNIT/GM UNIT/GM Gabapentin Gabapentin No 1{capsu TID Gabapentin 300 300 le} 300 Azelastine Azelastine No 1{drop_ BID Azelastine HCl 0.05 % HCl 0.05 % into_af HCl 0.05 % fected_ eye} FLUoxetine FLUoxetine No 1{capsu QD FLUoxetine HCl 40 MG HCl 40 MG le} HCl 40 MG TobraDex TobraDex No TID TobraDex 0.3-0.1 % 0.3-0.1 % 0.3-0.1 % Nystop Nystop No Nystop [id number] UNIT/GM UNIT/GM UNIT/GM Trelegy Trelegy No Trelegy Ellipta Ellipta Ellipta 100-62.5-25 100-62.5-25 100-62.5-2 MCG/INH MCG/INH 5 MCG/INH Diclofenac Diclofenac No Diclofenac Sodium 75 Sodium 75 Sodium 75 MG MG MG Nystatin Nystatin No 1{appli BID Nystatin [id number] cation_ [id number] UNIT/GM UNIT/GM to_affe UNIT/GM cted_ar ea} DULoxetine DULoxetine No 1{capsu QD DULoxetine HCl 60 MG HCl 60 MG le} HCl 60 MG Atorvastati Atorvastati No 1{table QD Atorvastat n Calcium n Calcium t} in Calcium 20 MG 20 MG 20 MG Proventil Proventil No 2{puffs QID Proventil HFA 108 (90 HFA 108 (90 _as_nee HFA 108 Base) Base) ded} (90 Base) MCG/ACT MCG/ACT MCG/ACT Anoro Anoro No Anoro Ellipta Ellipta Ellipta 62.5-25 62.5-25 62.5-25 MCG/INH MCG/INH MCG/INH Mupirocin 2 Mupirocin 2 No Mupirocin % % 2 % Potassium Potassium No Potassium Chloride ER Chloride ER Chloride 10 10 ER 10 Furosemide Furosemide No Furosemide 20 mg 20 mg 20 mg Fluticasone Fluticasone No Fluticason Propionate Propionate e 50 MCG/ACT 50 MCG/ACT Propionate 50 MCG/ACT Flonase 50 Flonase 50 No 2{spray QD Flonase 50 MCG/ACT MCG/ACT _in_eac MCG/ACT h_nostr il} Mupirocin Mupirocin No 1{appli BID Mupirocin Calcium 2 % Calcium 2 % cation} Calcium 2 % Pantoprazol Pantoprazol No 1{table QD Pantoprazo e Sodium 40 e Sodium 40 t} le Sodium MG MG 40 MG Tessalon Tessalon No Tessalon Perles 100 Perles 100 Perles 100 Diclofenac Diclofenac No 1{table BID Diclofenac Sodium 75 Sodium 75 t_with_ Sodium 75 MG MG food_or MG _milk} Benicar 5 Benicar 5 No 1{table QD Benicar 5 MG MG t} MG Tobramycin Tobramycin No 1{drop_ 6xD Tobramycin 0.3 % 0.3 % into_af 0.3 % fected_ eye} Zolpidem Zolpidem No 1{table QD Zolpidem Tartrate ER Tartrate ER t_at_be Tartrate 12.5 MG 12.5 MG dtime_a ER 12.5 MG s_neede d} Nystop Nystop No Nystop [id number] [id number] UNIT/GM UNIT/GM UNIT/GM Gabapentin Gabapentin No 1{capsu TID Gabapentin 300 300 le} 300 Azelastine Azelastine No 1{drop_ BID Azelastine HCl 0.05 % HCl 0.05 % into_af HCl 0.05 % fected_ eye} FLUoxetine FLUoxetine No 1{capsu QD FLUoxetine HCl 40 MG HCl 40 MG le} HCl 40 MG TobraDex TobraDex No TID TobraDex 0.3-0.1 % 0.3-0.1 % 0.3-0.1 % Nystop Nystop No Nystop 122133 [id number] UNIT/GM UNIT/GM UNIT/GM Trelegy Trelegy No Trelegy Ellipta Ellipta Ellipta 100-62.5-25 100-62.5-25 100-62.5-2 MCG/INH MCG/INH 5 MCG/INH Diclofenac Diclofenac No Diclofenac Sodium 75 Sodium 75 Sodium 75 MG MG MG Mupirocin 2 Mupirocin 2 No Mupirocin % % 2 % Potassium Potassium No Potassium Chloride ER Chloride ER Chloride 10 10 ER 10 Nystatin Nystatin No 1{appli BID Nystatin [id number] cation_ [id number] UNIT/GM UNIT/GM to_affe UNIT/GM cted_ar ea} DULoxetine DULoxetine No 1{capsu QD DULoxetine HCl 60 MG HCl 60 MG le} HCl 60 MG Fluticasone Fluticasone No Fluticason Propionate Propionate e 50 MCG/ACT 50 MCG/ACT Propionate 50 MCG/ACT Furosemide Furosemide No Furosemide 20 mg 20 mg 20 mg Proventil Proventil No 2{puffs QID Proventil HFA 108 (90 HFA 108 (90 _as_nee HFA 108 Base) Base) ded} (90 Base) MCG/ACT MCG/ACT MCG/ACT Anoro Anoro No Anoro Ellipta Ellipta Ellipta 62.5-25 62.5-25 62.5-25 MCG/INH MCG/INH MCG/INH Zolpidem Zolpidem No 1{table QD Zolpidem Tartrate ER Tartrate ER t_at_be Tartrate 12.5 MG 12.5 MG dtime_a ER 12.5 MG s_neede d} Flonase 50 Flonase 50 No 2{spray QD Flonase 50 MCG/ACT MCG/ACT _in_eac MCG/ACT h_nostr il} Mupirocin Mupirocin No 1{appli BID Mupirocin Calcium 2 % Calcium 2 % cation} Calcium 2 % Pantoprazol Pantoprazol No 1{table QD Pantoprazo e Sodium 40 e Sodium 40 t} le Sodium MG MG 40 MG Tessalon Tessalon No Tessalon Perles 100 Perles 100 Perles 100 Nystop Nystop No Nystop [id number] UNIT/GM UNIT/GM UNIT/GM Benicar 5 Benicar 5 No 1{table QD Benicar 5 MG MG t} MG Tobramycin Tobramycin No 1{drop_ 6xD Tobramycin 0.3 % 0.3 % into_af 0.3 % fected_ eye} Diclofenac Diclofenac No 1{table BID Diclofenac Sodium 75 Sodium 75 t_with_ Sodium 75 MG MG food_or MG _milk} Atorvastati Atorvastati No 1{table QD Atorvastat n Calcium n Calcium t} in Calcium 20 MG 20 MG 20 MG Gabapentin Gabapentin No 1{capsu TID Gabapentin 300 300 le} 300 Azelastine Azelastine No 1{drop_ BID Azelastine HCl 0.05 % HCl 0.05 % into_af HCl 0.05 % fected_ eye} FLUoxetine FLUoxetine No 1{capsu QD FLUoxetine HCl 40 MG HCl 40 MG le} HCl 40 MG TobraDex TobraDex No TID TobraDex 0.3-0.1 % 0.3-0.1 % 0.3-0.1 % Nystop Nystop No Nystop [id number] UNIT/GM UNIT/GM UNIT/GM Trelegy Trelegy No Trelegy Ellipta Ellipta Ellipta 100-62.5-25 100-62.5-25 100-62.5-2 MCG/INH MCG/INH 5 MCG/INH Diclofenac Diclofenac No Diclofenac Sodium 75 Sodium 75 Sodium 75 MG MG MG Proventil Proventil No 2{puffs QID Proventil HFA 108 (90 HFA 108 (90 _as_nee HFA 108 Base) Base) ded} (90 Base) MCG/ACT MCG/ACT MCG/ACT Furosemide Furosemide No Furosemide 20 mg 20 mg 20 mg Mupirocin 2 Mupirocin 2 No Mupirocin % % 2 % Anoro Anoro No Anoro Ellipta Ellipta Ellipta 62.5-25 62.5-25 62.5-25 MCG/INH MCG/INH MCG/INH Zolpidem Zolpidem No 1{table QD Zolpidem Tartrate ER Tartrate ER t_at_be Tartrate 12.5 MG 12.5 MG dtime_a ER 12.5 MG s_neede d} Fluticasone Fluticasone No Fluticason Propionate Propionate e 50 MCG/ACT 50 MCG/ACT Propionate 50 MCG/ACT Flonase 50 Flonase 50 No 2{spray QD Flonase 50 MCG/ACT MCG/ACT _in_eac MCG/ACT h_nostr il} Nystop Nystop No Nystop [id number] UNIT/GM UNIT/GM UNIT/GM Tobramycin Tobramycin No 1{drop_ 6xD Tobramycin 0.3 % 0.3 % into_af 0.3 % fected_ eye} Gabapentin Gabapentin No 1{capsu TID Gabapentin 300 300 le} 300 Azelastine Azelastine No 1{drop_ BID Azelastine HCl 0.05 % HCl 0.05 % into_af HCl 0.05 % fected_ eye} DULoxetine DULoxetine No 1{capsu QD DULoxetine HCl 60 MG HCl 60 MG le} HCl 60 MG FLUoxetine FLUoxetine No 1{capsu QD FLUoxetine HCl 40 MG HCl 40 MG le} HCl 40 MG Tessalon Tessalon No Tessalon Perles 100 Perles 100 Perles 100 Atorvastati Atorvastati No 1{table QD Atorvastat n Calcium n Calcium t} in Calcium 20 MG 20 MG 20 MG Potassium Potassium No Potassium Chloride ER Chloride ER Chloride 10 10 ER 10 Benicar 5 Benicar 5 No 1{table QD Benicar 5 MG MG t} MG Nystatin Nystatin No 1{appli BID Nystatin [id number] cation_ [id number] UNIT/GM UNIT/GM to_affe UNIT/GM cted_ar ea} Mupirocin Mupirocin No 1{appli BID Mupirocin Calcium 2 % Calcium 2 % cation} Calcium 2 % Pantoprazol Pantoprazol No 1{table QD Pantoprazo e Sodium 40 e Sodium 40 t} le Sodium MG MG 40 MG Diclofenac Diclofenac No Diclofenac Sodium 75 Sodium 75 Sodium 75 MG MG MG TobraDex TobraDex No TID TobraDex 0.3-0.1 % 0.3-0.1 % 0.3-0.1 % Nystop Nystop No Nystop [id number] UNIT/GM UNIT/GM UNIT/GM Trelegy Trelegy No Trelegy Ellipta Ellipta Ellipta 100-62.5-25 100-62.5-25 100-62.5-2 MCG/INH MCG/INH 5 MCG/INH Tessalon Tessalon No Tessalon Perles 100 Perles 100 Perles 100 Azelastine Azelastine No 1{drop_ BID Azelastine HCl 0.05 % HCl 0.05 % into_af HCl 0.05 % fected_ eye} Tobramycin Tobramycin No 1{drop_ 6xD Tobramycin 0.3 % 0.3 % into_af 0.3 % fected_ eye} Fluticasone Fluticasone No Fluticason Propionate Propionate e 50 MCG/ACT 50 MCG/ACT Propionate 50 MCG/ACT Mupirocin 2 Mupirocin 2 No Mupirocin % % 2 % Furosemide Furosemide No Furosemide 20 mg 20 mg 20 mg Diclofenac Diclofenac No 1{table BID Diclofenac Sodium 75 Sodium 75 t_with_ Sodium 75 MG MG food_or MG _milk} Atorvastati Atorvastati No Atorvastat n Calcium n Calcium in Calcium 20 MG 20 MG 20 MG Zolpidem Zolpidem No 1{table QD Zolpidem Tartrate ER Tartrate ER t_at_be Tartrate 12.5 MG 12.5 MG dtime_a ER 12.5 MG s_neede d} Pantoprazol Pantoprazol No 1{table QD Pantoprazo e Sodium 40 e Sodium 40 t} le Sodium MG MG 40 MG Gabapentin Gabapentin No 1{capsu TID Gabapentin 300 300 le} 300 Trelegy Trelegy No Trelegy Ellipta Ellipta Ellipta 100-62.5-25 100-62.5-25 100-62.5-2 MCG/INH MCG/INH 5 MCG/INH Diclofenac Diclofenac No Diclofenac Sodium 75 Sodium 75 Sodium 75 MG MG MG TobraDex TobraDex No TID TobraDex 0.3-0.1 % 0.3-0.1 % 0.3-0.1 % Flonase 50 Flonase 50 No 2{spray QD Flonase 50 MCG/ACT MCG/ACT _in_eac MCG/ACT h_nostr il} Anoro Anoro No Anoro Ellipta Ellipta Ellipta 62.5-25 62.5-25 62.5-25 MCG/INH MCG/INH MCG/INH Benicar 5 Benicar 5 No 1{table QD Benicar 5 MG MG t} MG FLUoxetine FLUoxetine No 1{capsu QD FLUoxetine HCl 40 MG HCl 40 MG le} HCl 40 MG Ozempic (2 Ozempic (2 No Ozempic (2 MG/DOSE) 8 MG/DOSE) 8 MG/DOSE) 8 MG/3ML MG/3ML MG/3ML DULoxetine DULoxetine No 1{capsu QD DULoxetine HCl 60 MG HCl 60 MG le} HCl 60 MG Nystop Nystop No Nystop [id number] UNIT/GM UNIT/GM UNIT/GM Proventil Proventil No 2{puffs QID Proventil HFA 108 (90 HFA 108 (90 _as_nee HFA 108 Base) Base) ded} (90 Base) MCG/ACT MCG/ACT MCG/ACT Potassium Potassium No Potassium Chloride ER Chloride ER Chloride 10 10 ER 10 Mupirocin Mupirocin No 1{appli BID Mupirocin Calcium 2 % Calcium 2 % cation} Calcium 2 % Tessalon Tessalon No Tessalon Perles 100 Perles 100 Perles 100 Azelastine Azelastine No 1{drop_ BID Azelastine HCl 0.05 % HCl 0.05 % into_af HCl 0.05 % fected_ eye} Tobramycin Tobramycin No 1{drop_ 6xD Tobramycin 0.3 % 0.3 % into_af 0.3 % fected_ eye} Fluticasone Fluticasone No Fluticason Propionate Propionate e 50 MCG/ACT 50 MCG/ACT Propionate 50 MCG/ACT Mupirocin 2 Mupirocin 2 No Mupirocin % % 2 % Furosemide Furosemide No Furosemide 20 mg 20 mg 20 mg Diclofenac Diclofenac No 1{table BID Diclofenac Sodium 75 Sodium 75 t_with_ Sodium 75 MG MG food_or MG _milk} Atorvastati Atorvastati No Atorvastat n Calcium n Calcium in Calcium 20 MG 20 MG 20 MG Zolpidem Zolpidem No 1{table QD Zolpidem Tartrate ER Tartrate ER t_at_be Tartrate 12.5 MG 12.5 MG dtime_a ER 12.5 MG s_neede d} Pantoprazol Pantoprazol No 1{table QD Pantoprazo e Sodium 40 e Sodium 40 t} le Sodium MG MG 40 MG Gabapentin Gabapentin No 1{capsu TID Gabapentin 300 300 le} 300 Trelegy Trelegy No Trelegy Ellipta Ellipta Ellipta 100-62.5-25 100-62.5-25 100-62.5-2 MCG/INH MCG/INH 5 MCG/INH Diclofenac Diclofenac No Diclofenac Sodium 75 Sodium 75 Sodium 75 MG MG MG TobraDex TobraDex No TID TobraDex 0.3-0.1 % 0.3-0.1 % 0.3-0.1 % Flonase 50 Flonase 50 No 2{spray QD Flonase 50 MCG/ACT MCG/ACT _in_eac MCG/ACT h_nostr il} Anoro Anoro No Anoro Ellipta Ellipta Ellipta 62.5-25 62.5-25 62.5-25 MCG/INH MCG/INH MCG/INH Benicar 5 Benicar 5 No 1{table QD Benicar 5 MG MG t} MG FLUoxetine FLUoxetine No 1{capsu QD FLUoxetine HCl 40 MG HCl 40 MG le} HCl 40 MG Ozempic (2 Ozempic (2 No Ozempic (2 MG/DOSE) 8 MG/DOSE) 8 MG/DOSE) 8 MG/3ML MG/3ML MG/3ML DULoxetine DULoxetine No 1{capsu QD DULoxetine HCl 60 MG HCl 60 MG le} HCl 60 MG Nystop Nystop No Nystop [id number] UNIT/GM UNIT/GM UNIT/GM Proventil Proventil No 2{puffs QID Proventil HFA 108 (90 HFA 108 (90 _as_nee HFA 108 Base) Base) ded} (90 Base) MCG/ACT MCG/ACT MCG/ACT Potassium Potassium No Potassium Chloride ER Chloride ER Chloride 10 10 ER 10 Mupirocin Mupirocin No 1{appli BID Mupirocin Calcium 2 % Calcium 2 % cation} Calcium 2 % Tessalon Tessalon No Tessalon Perles 100 Perles 100 Perles 100 Furosemide Furosemide No Furosemide 20 mg 20 mg 20 mg Azelastine Azelastine No 1{drop_ BID Azelastine HCl 0.05 % HCl 0.05 % into_af HCl 0.05 % fected_ eye} Tobramycin Tobramycin No 1{drop_ 6xD Tobramycin 0.3 % 0.3 % into_af 0.3 % fected_ eye} Atorvastati Atorvastati No Atorvastat n Calcium n Calcium in Calcium 20 MG 20 MG 20 MG Mupirocin 2 Mupirocin 2 No Mupirocin % % 2 % Fluticasone Fluticasone No Fluticason Propionate Propionate e 50 MCG/ACT 50 MCG/ACT Propionate 50 MCG/ACT Diclofenac Diclofenac No 1{table BID Diclofenac Sodium 75 Sodium 75 t_with_ Sodium 75 MG MG food_or MG _milk} Zolpidem Zolpidem No 1{table QD Zolpidem Tartrate ER Tartrate ER t_at_be Tartrate 12.5 MG 12.5 MG dtime_a ER 12.5 MG s_neede d} Pantoprazol Pantoprazol No 1{table QD Pantoprazo e Sodium 40 e Sodium 40 t} le Sodium MG MG 40 MG Gabapentin Gabapentin No 1{capsu TID Gabapentin 300 300 le} 300 Trelegy Trelegy No Trelegy Ellipta Ellipta Ellipta 100-62.5-25 100-62.5-25 100-62.5-2 MCG/INH MCG/INH 5 MCG/INH Diclofenac Diclofenac No Diclofenac Sodium 75 Sodium 75 Sodium 75 MG MG MG TobraDex TobraDex No TID TobraDex 0.3-0.1 % 0.3-0.1 % 0.3-0.1 % Flonase 50 Flonase 50 No 2{spray QD Flonase 50 MCG/ACT MCG/ACT _in_eac MCG/ACT h_nostr il} Anoro Anoro No Anoro Ellipta Ellipta Ellipta 62.5-25 62.5-25 62.5-25 MCG/INH MCG/INH MCG/INH Benicar 5 Benicar 5 No 1{table QD Benicar 5 MG MG t} MG FLUoxetine FLUoxetine No 1{capsu QD FLUoxetine HCl 40 MG HCl 40 MG le} HCl 40 MG Ozempic (2 Ozempic (2 No Ozempic (2 MG/DOSE) 8 MG/DOSE) 8 MG/DOSE) 8 MG/3ML MG/3ML MG/3ML DULoxetine DULoxetine No 1{capsu QD DULoxetine HCl 60 MG HCl 60 MG le} HCl 60 MG Nystop Nystop No Nystop [id number] UNIT/GM UNIT/GM UNIT/GM Proventil Proventil No 2{puffs QID Proventil HFA 108 (90 HFA 108 (90 _as_nee HFA 108 Base) Base) ded} (90 Base) MCG/ACT MCG/ACT MCG/ACT Potassium Potassium No Potassium Chloride ER Chloride ER Chloride 10 10 ER 10 Mupirocin Mupirocin No 1{appli BID Mupirocin Calcium 2 % Calcium 2 % cation} Calcium 2 % Tessalon Tessalon No Tessalon Perles 100 Perles 100 Perles 100 Furosemide Furosemide No Furosemide 20 mg 20 mg 20 mg Azelastine Azelastine No 1{drop_ BID Azelastine HCl 0.05 % HCl 0.05 % into_af HCl 0.05 % fected_ eye} Tobramycin Tobramycin No 1{drop_ 6xD Tobramycin 0.3 % 0.3 % into_af 0.3 % fected_ eye} Atorvastati Atorvastati No Atorvastat n Calcium n Calcium in Calcium 20 MG 20 MG 20 MG Mupirocin 2 Mupirocin 2 No Mupirocin % % 2 % Fluticasone Fluticasone No Fluticason Propionate Propionate e 50 MCG/ACT 50 MCG/ACT Propionate 50 MCG/ACT Diclofenac Diclofenac No 1{table BID Diclofenac Sodium 75 Sodium 75 t_with_ Sodium 75 MG MG food_or MG _milk} Zolpidem Zolpidem No 1{table QD Zolpidem Tartrate ER Tartrate ER t_at_be Tartrate 12.5 MG 12.5 MG dtime_a ER 12.5 MG s_neede d} Pantoprazol Pantoprazol No 1{table QD Pantoprazo e Sodium 40 e Sodium 40 t} le Sodium MG MG 40 MG Gabapentin Gabapentin No 1{capsu TID Gabapentin 300 300 le} 300 Trelegy Trelegy No Trelegy Ellipta Ellipta Ellipta 100-62.5-25 100-62.5-25 100-62.5-2 MCG/INH MCG/INH 5 MCG/INH Diclofenac Diclofenac No Diclofenac Sodium 75 Sodium 75 Sodium 75 MG MG MG TobraDex TobraDex No TID TobraDex 0.3-0.1 % 0.3-0.1 % 0.3-0.1 % Flonase 50 Flonase 50 No 2{spray QD Flonase 50 MCG/ACT MCG/ACT _in_eac MCG/ACT h_nostr il} Anoro Anoro No Anoro Ellipta Ellipta Ellipta 62.5-25 62.5-25 62.5-25 MCG/INH MCG/INH MCG/INH Benicar 5 Benicar 5 No 1{table QD Benicar 5 MG MG t} MG FLUoxetine FLUoxetine No 1{capsu QD FLUoxetine HCl 40 MG HCl 40 MG le} HCl 40 MG Ozempic (2 Ozempic (2 No Ozempic (2 MG/DOSE) 8 MG/DOSE) 8 MG/DOSE) 8 MG/3ML MG/3ML MG/3ML DULoxetine DULoxetine No 1{capsu QD DULoxetine HCl 60 MG HCl 60 MG le} HCl 60 MG Nystop Nystop No Nystop [id number] 850596 [id number] UNIT/GM UNIT/GM UNIT/GM Proventil Proventil No 2{puffs QID Proventil HFA 108 (90 HFA 108 (90 _as_nee HFA 108 Base) Base) ded} (90 Base) MCG/ACT MCG/ACT MCG/ACT Potassium Potassium No Potassium Chloride ER Chloride ER Chloride 10 10 ER 10 Mupirocin Mupirocin No 1{appli BID Mupirocin Calcium 2 % Calcium 2 % cation} Calcium 2 % Tessalon Tessalon No Tessalon Perles 100 Perles 100 Perles 100 Furosemide Furosemide No Furosemide 20 mg 20 mg 20 mg Azelastine Azelastine No 1{drop_ BID Azelastine HCl 0.05 % HCl 0.05 % into_af HCl 0.05 % fected_ eye} Tobramycin Tobramycin No 1{drop_ 6xD Tobramycin 0.3 % 0.3 % into_af 0.3 % fected_ eye} Atorvastati Atorvastati No Atorvastat n Calcium n Calcium in Calcium 20 MG 20 MG 20 MG Mupirocin 2 Mupirocin 2 No Mupirocin % % 2 % Fluticasone Fluticasone No Fluticason Propionate Propionate e 50 MCG/ACT 50 MCG/ACT Propionate 50 MCG/ACT Diclofenac Diclofenac No 1{table BID Diclofenac Sodium 75 Sodium 75 t_with_ Sodium 75 MG MG food_or MG _milk} Zolpidem Zolpidem No 1{table QD Zolpidem Tartrate ER Tartrate ER t_at_be Tartrate 12.5 MG 12.5 MG dtime_a ER 12.5 MG s_neede d} Pantoprazol Pantoprazol No 1{table QD Pantoprazo e Sodium 40 e Sodium 40 t} le Sodium MG MG 40 MG Gabapentin Gabapentin No 1{capsu TID Gabapentin 300 300 le} 300 Trelegy Trelegy No Trelegy Ellipta Ellipta Ellipta 100-62.5-25 100-62.5-25 100-62.5-2 MCG/INH MCG/INH 5 MCG/INH Diclofenac Diclofenac No Diclofenac Sodium 75 Sodium 75 Sodium 75 MG MG MG TobraDex TobraDex No TID TobraDex 0.3-0.1 % 0.3-0.1 % 0.3-0.1 % Flonase 50 Flonase 50 No 2{spray QD Flonase 50 MCG/ACT MCG/ACT _in_eac MCG/ACT h_nostr il} Anoro Anoro No Anoro Ellipta Ellipta Ellipta 62.5-25 62.5-25 62.5-25 MCG/INH MCG/INH MCG/INH Benicar 5 Benicar 5 No 1{table QD Benicar 5 MG MG t} MG FLUoxetine FLUoxetine No 1{capsu QD FLUoxetine HCl 40 MG HCl 40 MG le} HCl 40 MG Ozempic (2 Ozempic (2 No Ozempic (2 MG/DOSE) 8 MG/DOSE) 8 MG/DOSE) 8 MG/3ML MG/3ML MG/3ML DULoxetine DULoxetine No 1{capsu QD DULoxetine HCl 60 MG HCl 60 MG le} HCl 60 MG Nystop Nystop No Nystop [id number] UNIT/GM UNIT/GM UNIT/GM Proventil Proventil No 2{puffs QID Proventil HFA 108 (90 HFA 108 (90 _as_nee HFA 108 Base) Base) ded} (90 Base) MCG/ACT MCG/ACT MCG/ACT Potassium Potassium No Potassium Chloride ER Chloride ER Chloride 10 10 ER 10 Mupirocin Mupirocin No 1{appli BID Mupirocin Calcium 2 % Calcium 2 % cation} Calcium 2 % Tessalon Tessalon No Tessalon Perles 100 Perles 100 Perles 100 Furosemide Furosemide No Furosemide 20 mg 20 mg 20 mg Azelastine Azelastine No 1{drop_ BID Azelastine HCl 0.05 % HCl 0.05 % into_af HCl 0.05 % fected_ eye} Tobramycin Tobramycin No 1{drop_ 6xD Tobramycin 0.3 % 0.3 % into_af 0.3 % fected_ eye} Atorvastati Atorvastati No Atorvastat n Calcium n Calcium in Calcium 20 MG 20 MG 20 MG Mupirocin 2 Mupirocin 2 No Mupirocin % % 2 % Fluticasone Fluticasone No Fluticason Propionate Propionate e 50 MCG/ACT 50 MCG/ACT Propionate 50 MCG/ACT Diclofenac Diclofenac No 1{table BID Diclofenac Sodium 75 Sodium 75 t_with_ Sodium 75 MG MG food_or MG _milk} Zolpidem Zolpidem No 1{table QD Zolpidem Tartrate ER Tartrate ER t_at_be Tartrate 12.5 MG 12.5 MG dtime_a ER 12.5 MG s_neede d} Pantoprazol Pantoprazol No 1{table QD Pantoprazo e Sodium 40 e Sodium 40 t} le Sodium MG MG 40 MG Gabapentin Gabapentin No 1{capsu TID Gabapentin 300 300 le} 300 Trelegy Trelegy No Trelegy Ellipta Ellipta Ellipta 100-62.5-25 100-62.5-25 100-62.5-2 MCG/INH MCG/INH 5 MCG/INH Diclofenac Diclofenac No Diclofenac Sodium 75 Sodium 75 Sodium 75 MG MG MG TobraDex TobraDex No TID TobraDex 0.3-0.1 % 0.3-0.1 % 0.3-0.1 % Flonase 50 Flonase 50 No 2{spray QD Flonase 50 MCG/ACT MCG/ACT _in_eac MCG/ACT h_nostr il} Anoro Anoro No Anoro Ellipta Ellipta Ellipta 62.5-25 62.5-25 62.5-25 MCG/INH MCG/INH MCG/INH Benicar 5 Benicar 5 No 1{table QD Benicar 5 MG MG t} MG Proventil Proventil No 2{puffs QID Proventil HFA 108 (90 HFA 108 (90 _as_nee HFA 108 Base) Base) ded} (90 Base) MCG/ACT MCG/ACT MCG/ACT FLUoxetine FLUoxetine No 1{capsu QD FLUoxetine HCl 40 MG HCl 40 MG le} HCl 40 MG Ozempic (2 Ozempic (2 No Ozempic (2 MG/DOSE) 8 MG/DOSE) 8 MG/DOSE) 8 MG/3ML MG/3ML MG/3ML DULoxetine DULoxetine No 1{capsu QD DULoxetine HCl 60 MG HCl 60 MG le} HCl 60 MG Nystop Nystop No Nystop [id number] UNIT/GM UNIT/GM UNIT/GM Proventil Proventil No 2{puffs QID Proventil HFA 108 (90 HFA 108 (90 _as_nee HFA 108 Base) Base) ded} (90 Base) MCG/ACT MCG/ACT MCG/ACT Potassium Potassium No Potassium Chloride ER Chloride ER Chloride 10 10 ER 10 Mupirocin Mupirocin No 1{appli BID Mupirocin Calcium 2 % Calcium 2 % cation} Calcium 2 % Furosemide Furosemide No Furosemide 20 mg 20 mg 20 mg Mupirocin 2 Mupirocin 2 No Mupirocin % % 2 % Fluticasone Fluticasone No Fluticason Propionate Propionate e 50 MCG/ACT 50 MCG/ACT Propionate 50 MCG/ACT Tessalon Tessalon No Tessalon Perles 100 Perles 100 Perles 100 Furosemide Furosemide No Furosemide 20 mg 20 mg 20 mg Diclofenac Diclofenac No 1{table BID Diclofenac Sodium 75 Sodium 75 t_with_ Sodium 75 MG MG food_or MG _milk} Tobramycin Tobramycin No 1{drop_ 6xD Tobramycin 0.3 % 0.3 % into_af 0.3 % fected_ eye} Atorvastati Atorvastati No Atorvastat n Calcium n Calcium in Calcium 20 MG 20 MG 20 MG Flonase 50 Flonase 50 No 2{spray QD Flonase 50 MCG/ACT MCG/ACT _in_eac MCG/ACT h_nostr il} Mupirocin 2 Mupirocin 2 No Mupirocin % % 2 % TobraDex TobraDex No TID TobraDex 0.3-0.1 % 0.3-0.1 % 0.3-0.1 % Zolpidem Zolpidem No 1{table QD Zolpidem Tartrate ER Tartrate ER t_at_be Tartrate 12.5 MG 12.5 MG dtime_a ER 12.5 MG s_neede d} Pantoprazol Pantoprazol No 1{table QD Pantoprazo e Sodium 40 e Sodium 40 t} le Sodium MG MG 40 MG FLUoxetine FLUoxetine No 1{capsu QD FLUoxetine HCl 40 MG HCl 40 MG le} HCl 40 MG Anoro Anoro No Anoro Ellipta Ellipta Ellipta 62.5-25 62.5-25 62.5-25 MCG/INH MCG/INH MCG/INH Diclofenac Diclofenac No Diclofenac Sodium 75 Sodium 75 Sodium 75 MG MG MG Gabapentin Gabapentin No 1{capsu TID Gabapentin 300 300 le} 300 Trelegy Trelegy No Trelegy Ellipta Ellipta Ellipta 100-62.5-25 100-62.5-25 100-62.5-2 MCG/INH MCG/INH 5 MCG/INH Azelastine Azelastine No 1{drop_ BID Azelastine HCl 0.05 % HCl 0.05 % into_af HCl 0.05 % fected_ eye} Benicar 5 Benicar 5 No 1{table QD Benicar 5 MG MG t} MG Anoro Anoro No Anoro Ellipta Ellipta Ellipta 62.5-25 62.5-25 62.5-25 MCG/INH MCG/INH MCG/INH Ozempic (2 Ozempic (2 No Ozempic (2 MG/DOSE) 8 MG/DOSE) 8 MG/DOSE) 8 MG/3ML MG/3ML MG/3ML DULoxetine DULoxetine No 1{capsu QD DULoxetine HCl 60 MG HCl 60 MG le} HCl 60 MG Nystop Nystop No Nystop [id number] UNIT/GM UNIT/GM UNIT/GM Proventil Proventil No 2{puffs QID Proventil HFA 108 (90 HFA 108 (90 _as_nee HFA 108 Base) Base) ded} (90 Base) MCG/ACT MCG/ACT MCG/ACT Potassium Potassium No Potassium Chloride ER Chloride ER Chloride 10 10 ER 10 Mupirocin Mupirocin No 1{appli BID Mupirocin Calcium 2 % Calcium 2 % cation} Calcium 2 % Zolpidem Zolpidem No 1{table QD Zolpidem Tartrate ER Tartrate ER t_at_be Tartrate 12.5 MG 12.5 MG dtime_a ER 12.5 MG s_neede d} Mupirocin 2 Mupirocin 2 No Mupirocin % % 2 % Fluticasone Fluticasone No Fluticason Propionate Propionate e 50 MCG/ACT 50 MCG/ACT Propionate 50 MCG/ACT Tessalon Tessalon No Tessalon Perles 100 Perles 100 Perles 100 Furosemide Furosemide No Furosemide 20 mg 20 mg 20 mg Diclofenac Diclofenac No 1{table BID Diclofenac Sodium 75 Sodium 75 t_with_ Sodium 75 MG MG food_or MG _milk} Tobramycin Tobramycin No 1{drop_ 6xD Tobramycin 0.3 % 0.3 % into_af 0.3 % fected_ eye} Atorvastati Atorvastati No Atorvastat n Calcium n Calcium in Calcium 20 MG 20 MG 20 MG Flonase 50 Flonase 50 No 2{spray QD Flonase 50 MCG/ACT MCG/ACT _in_eac MCG/ACT h_nostr il} Fluticasone Fluticasone No Fluticason Propionate Propionate e 50 MCG/ACT 50 MCG/ACT Propionate 50 MCG/ACT TobraDex TobraDex No TID TobraDex 0.3-0.1 % 0.3-0.1 % 0.3-0.1 % Zolpidem Zolpidem No 1{table QD Zolpidem Tartrate ER Tartrate ER t_at_be Tartrate 12.5 MG 12.5 MG dtime_a ER 12.5 MG s_neede d} Pantoprazol Pantoprazol No 1{table QD Pantoprazo e Sodium 40 e Sodium 40 t} le Sodium MG MG 40 MG FLUoxetine FLUoxetine No 1{capsu QD FLUoxetine HCl 40 MG HCl 40 MG le} HCl 40 MG Anoro Anoro No Anoro Ellipta Ellipta Ellipta 62.5-25 62.5-25 62.5-25 MCG/INH MCG/INH MCG/INH Diclofenac Diclofenac No Diclofenac Sodium 75 Sodium 75 Sodium 75 MG MG MG Gabapentin Gabapentin No 1{capsu TID Gabapentin 300 300 le} 300 Trelegy Trelegy No Trelegy Ellipta Ellipta Ellipta 100-62.5-25 100-62.5-25 100-62.5-2 MCG/INH MCG/INH 5 MCG/INH Azelastine Azelastine No 1{drop_ BID Azelastine HCl 0.05 % HCl 0.05 % into_af HCl 0.05 % fected_ eye} Benicar 5 Benicar 5 No 1{table QD Benicar 5 MG MG t} MG Flonase 50 Flonase 50 No 2{spray QD Flonase 50 MCG/ACT MCG/ACT _in_eac MCG/ACT h_nostr il} Ozempic (2 Ozempic (2 No Ozempic (2 MG/DOSE) 8 MG/DOSE) 8 MG/DOSE) 8 MG/3ML MG/3ML MG/3ML DULoxetine DULoxetine No 1{capsu QD DULoxetine HCl 60 MG HCl 60 MG le} HCl 60 MG Nystop Nystop No Nystop [id number] UNIT/GM UNIT/GM UNIT/GM Proventil Proventil No 2{puffs QID Proventil HFA 108 (90 HFA 108 (90 _as_nee HFA 108 Base) Base) ded} (90 Base) MCG/ACT MCG/ACT MCG/ACT Potassium Potassium No Potassium Chloride ER Chloride ER Chloride 10 10 ER 10 Mupirocin Mupirocin No 1{appli BID Mupirocin Calcium 2 % Calcium 2 % cation} Calcium 2 % Nystop Nystop No Nystop [id number] UNIT/GM UNIT/GM UNIT/GM Mupirocin 2 Mupirocin 2 No Mupirocin % % 2 % Fluticasone Fluticasone No Fluticason Propionate Propionate e 50 MCG/ACT 50 MCG/ACT Propionate 50 MCG/ACT Tessalon Tessalon No Tessalon Perles 100 Perles 100 Perles 100 Furosemide Furosemide No Furosemide 20 mg 20 mg 20 mg Diclofenac Diclofenac No 1{table BID Diclofenac Sodium 75 Sodium 75 t_with_ Sodium 75 MG MG food_or MG _milk} Tobramycin Tobramycin No 1{drop_ 6xD Tobramycin 0.3 % 0.3 % into_af 0.3 % fected_ eye} Atorvastati Atorvastati No Atorvastat n Calcium n Calcium in Calcium 20 MG 20 MG 20 MG Tobramycin Tobramycin No 1{drop_ 6xD Tobramycin 0.3 % 0.3 % into_af 0.3 % fected_ eye} Flonase 50 Flonase 50 No 2{spray QD Flonase 50 MCG/ACT MCG/ACT _in_eac MCG/ACT h_nostr il} TobraDex TobraDex No TID TobraDex 0.3-0.1 % 0.3-0.1 % 0.3-0.1 % Zolpidem Zolpidem No 1{table QD Zolpidem Tartrate ER Tartrate ER t_at_be Tartrate 12.5 MG 12.5 MG dtime_a ER 12.5 MG s_neede d} Pantoprazol Pantoprazol No 1{table QD Pantoprazo e Sodium 40 e Sodium 40 t} le Sodium MG MG 40 MG FLUoxetine FLUoxetine No 1{capsu QD FLUoxetine HCl 40 MG HCl 40 MG le} HCl 40 MG Anoro Anoro No Anoro Ellipta Ellipta Ellipta 62.5-25 62.5-25 62.5-25 MCG/INH MCG/INH MCG/INH Diclofenac Diclofenac No Diclofenac Sodium 75 Sodium 75 Sodium 75 MG MG MG Gabapentin Gabapentin No 1{capsu TID Gabapentin 300 300 le} 300 Trelegy Trelegy No Trelegy Ellipta Ellipta Ellipta 100-62.5-25 100-62.5-25 100-62.5-2 MCG/INH MCG/INH 5 MCG/INH Azelastine Azelastine No 1{drop_ BID Azelastine HCl 0.05 % HCl 0.05 % into_af HCl 0.05 % fected_ eye} Benicar 5 Benicar 5 No 1{table QD Benicar 5 MG MG t} MG Ozempic (2 Ozempic (2 No Ozempic (2 MG/DOSE) 8 MG/DOSE) 8 MG/DOSE) 8 MG/3ML MG/3ML MG/3ML DULoxetine DULoxetine No 1{capsu QD DULoxetine HCl 60 MG HCl 60 MG le} HCl 60 MG Nystop Nystop No Nystop [id number] UNIT/GM UNIT/GM UNIT/GM Proventil Proventil No 2{puffs QID Proventil HFA 108 (90 HFA 108 (90 _as_nee HFA 108 Base) Base) ded} (90 Base) MCG/ACT MCG/ACT MCG/ACT Potassium Potassium No Potassium Chloride ER Chloride ER Chloride 10 10 ER 10 Mupirocin Mupirocin No 1{appli BID Mupirocin Calcium 2 % Calcium 2 % cation} Calcium 2 % Gabapentin Gabapentin No 1{capsu TID Gabapentin 300 300 le} 300 Azelastine Azelastine No 1{drop_ BID Azelastine HCl 0.05 % HCl 0.05 % into_af HCl 0.05 % fected_ eye} DULoxetine DULoxetine No 1{capsu QD DULoxetine HCl 60 MG HCl 60 MG le} HCl 60 MG FLUoxetine FLUoxetine No 1{capsu QD FLUoxetine HCl 40 MG HCl 40 MG le} HCl 40 MG Tessalon Tessalon No Tessalon Perles 100 Perles 100 Perles 100 Atorvastati Atorvastati No 1{table QD Atorvastat n Calcium n Calcium t} in Calcium 20 MG 20 MG 20 MG Potassium Potassium No Potassium Chloride ER Chloride ER Chloride 10 10 ER 10 Benicar 5 Benicar 5 No 1{table QD Benicar 5 MG MG t} MG Benzonatate Benzonatate 2021- No BID Benzonatat 100 MG 100 MG 07-25 e 100 MG 00:00 :00 Benzonatate Benzonatate 2021- No BID Benzonatat 100 MG 100 MG 07-25 e 100 MG 00:00 :00 Benzonatate Benzonatate 2021- No BID Benzonatat 100 MG 100 MG 07-25 e 100 MG 00:00 :00 Benzonatate Benzonatate 2021- No BID Benzonatat 100 MG 100 MG 07-25 e 100 MG 00:00 :00 Benzonatate Benzonatate 2021- No BID Benzonatat 100 MG 100 MG 07-25 e 100 MG 00:00 :00 Benzonatate Benzonatate 2021- No BID Benzonatat 100 MG 100 MG 07-25 e 100 MG 00:00 :00 Benzonatate Benzonatate 2021- No BID Benzonatat 100 MG 100 MG 07-25 e 100 MG 00:00 :00 Immunizations Ordered Immunization Filled Immunization Date Status Commen ts Source Name Name Prevnar 20 (PCV20) Prevnar 20 (PCV20) 2022-08-20 Completed [facility] 15:31:00 - [facility] Prevnar 20 (PCV20) Prevnar 20 (PCV20) 2022-08-20 Completed [facility] 15:31:00 - [facility] Prevnar 20 (PCV20) Prevnar 20 (PCV20) 2022-08-20 Completed [facility] 15:31:00 - [facility] Prevnar 20 (PCV20) Prevnar 20 (PCV20) 2022-08-20 Completed [facility] 15:31:00 - [facility] Prevnar 20 (PCV20) Prevnar 20 (PCV20) 2022-08-20 Completed [facility] 15:31:00 - [facility] Prevnar 20 (PCV20) Prevnar 20 (PCV20) 2022-08-20 [facility]pleted [facility] 15:31:00 - [facility] Prevnar 20 (PCV20) Prevnar 20 (PCV20) 2022-08-20 Completed [facility] 15:31:00 - [facility] Prevnar 20 (PCV20) Prevnar 20 (PCV20) 2022-08-20 Completed [facility] 15:31:00 - [facility] Prevnar 20 (PCV20) Prevnar 20 (PCV20) 2022-08-20 Completed [facility] 15:31:00 - [facility] Prevnar 20 (PCV20) Prevnar 20 (PCV20) 2022-08-20 Completed [facility] 15:31:00 - [facility] FLUZONE HIGH DOSE FLUZONE HIGH DOSE 2022-08-20 Completed [facility] OVER 65 OVER 65 15:29:00 - [facility] FLUZONE HIGH DOSE FLUZONE HIGH DOSE 2022-08-20 Completed [facility] OVER 65 OVER 65 15:29:00 - [facility] FLUZONE HIGH DOSE FLUZONE HIGH DOSE 2022-08-20 Completed [facility] OVER 65 OVER 65 15:29:00 - [facility] FLUZONE HIGH DOSE FLUZONE HIGH DOSE 2022-08-20 Completed [facility] OVER 65 OVER 65 15:29:00 - [facility] FLUZONE HIGH DOSE FLUZONE HIGH DOSE 2022-08-20 Completed [facility] OVER 65 OVER 65 15:29:00 - [facility] FLUZONE HIGH DOSE FLUZONE HIGH DOSE 2022-08-20 Completed [facility] OVER 65 OVER 65 15:29:00 - [facility] FLUZONE HIGH DOSE FLUZONE HIGH DOSE 2022-08-20 Completed [facility] OVER 65 OVER 65 15:29:00 - [facility] FLUZONE HIGH DOSE FLUZONE HIGH DOSE 2022-08-20 Completed [facility] OVER 65 OVER 65 15:29:00 - [facility] FLUZONE HIGH DOSE FLUZONE HIGH DOSE 2022-08-20 Completed [facility] OVER 65 OVER 65 15:29:00 - [facility] FLUZONE HIGH DOSE FLUZONE HIGH DOSE 2022-08-20 Completed [facility] OVER 65 OVER 65 15:29:00 - [facility] Vital Signs Vital Name Observation Time Observation Value Comments Source height 2022-08-20 13:40:00 64.00 [in_i] [facility] weight 2022-08-20 13:40:00 312.6 [lb_av] [facility] temperature 2022-08-20 13:40:00 97.6 [degF] [facility] bmi 2022-08-20 13:40:00 53.65 kg/m2 [facility] oximetry 2022-08-20 13:40:00 96 % [facility] respiratory rate 2022-08-20 13:40:00 16 /min Comm on [facility] blood pressure 2022-08-20 13:40:00 139 mm[Hg] Common [facility] - systolic [facility] blood pressure 2022-08-20 13:40:00 62 mm[Hg] [facility] - diastolic [facility] height 2022-06-18 16:00:00 64.00 [in_i] [facility] weight 2022-06-18 16:00:00 301.2 [lb_av] [facility] temperature 2022-06-18 16:00:00 98.0 [degF] [facility] bmi 2022-06-18 16:00:00 51.7 kg/m2 [facility] oximetry 2022-06-18 16:00:00 95 % [facility] respiratory rate 2022-06-18 16:00:00 16 /min Comm on [facility] blood pressure 2022-06-18 16:00:00 138 mm[Hg] Common [facility] systolic [facility] blood pressure 2022-06-18 16:00:00 72 mm[Hg] [facility] diastolic [facility] height 2022-06-18 16:00:00 64.00 [in_i] [facility] weight 2022-06-18 16:00:00 301.2 [lb_av] [facility] temperature 2022-06-18 16:00:00 98.0 [degF] [facility] bmi 2022-06-18 16:00:00 51.70 kg/m2 [facility] oximetry 2022-06-18 16:00:00 95 % [facility] respiratory rate 2022-06-18 16:00:00 16 /min Comm on [facility] blood pressure 2022-06-18 16:00:00 138 mm[Hg] [facility] - systolic [facility] blood pressure 2022-06-18 16:00:00 72 mm[Hg] [facility] - diastolic [facility] Procedures Procedure Date / Time Performed Performing Clinician [facility] e ASSIGNMENT OF BENEFITS 2020-03-21 18:24:09 Doctor Unassigned, No [facility] Encounters Start End Encounter Admission Attending Care Care Encounter Source Date/Time Date/Time Type Type Clinicians Facility Department ID 2022-12-03 Outpatient Valarie, STLMLC STLMLC [id number] [facility] 16:42:00 Nini [id number] [facility] 2022-08-16 Outpatient Sheikh, Na STLMLC STLMLC [id number] 2 [facility] 09:10:01 [facility] 2022-06-14 Outpatient Sheikh, Na STLMLC STLMLC [id number] 2 [facility] 10:41:00 [facility] 2022-06-05 Outpatient Sheikh, Na STLMLC STLMLC [id number] 2 [facility] 12:30:01 [facility] 2022-04-17 Outpatient Sheikh, Na STLMLC STLMLC [id number] 2 [facility] 15:43:01 [facility] 2022-04-16 Outpatient Sheikh, Na STLMLC STLMLC [id number] 2 [facility] 14:36:00 [facility] 2022-03-12 Outpatient Sheikh, Na STLMLC STLMLC [id number] 2 [facility] 14:50:01 [facility] 2022-02-11 Outpatient Sheikh, Na STLMLC STLMLC [id number] 2 [facility] 08:21:01 [facility] 2021-12-05 Outpatient Sheikh, Na STLMLC STLMLC [id number] 2 [facility] 14:23:29 [facility] 2021-12-05 Outpatient Sheikh, Na STLMLC STLMLC [id number] 2 [facility] 13:56:02 [facility] 2021-12-05 Outpatient Sheikh, Na STLMLC STLMLC [id number] 2 [facility] 13:24:55 [id number] [facility] 2021-12-05 Outpatient Sheikh, Na STLMLC STLMLC [id number] 2 [facility] 13:21:52 [id number] [facility] 2021-12-05 Outpatient Sheikh, Na STLMLC STLMLC [id number] 2 [facility] 13:20:13 [id number] [facility] 2021-12-05 Outpatient Sheikh, Na STLMLC STLMLC [id number] 2 [facility] 12:24:02 [id number] [facility] 2021-12-05 Outpatient Sheikh, Na STLMLC STLMLC [id number] 2 [facility] 12:03:18 [id number] [facility] 2021-12-05 Outpatient Sheikh, Na STLMLC STLMLC [id number] 2 [facility] 11:44:15 [id number] [facility] 2021-12-05 Outpatient Sheikh, Na STLMLC STLMLC [id number] 2 [facility] 11:39:06 [id number] [facility] 2021-12-05 Outpatient Sheikh, Na STLMLC STLMLC [id number] 2 [facility] 11:25:18 [id number] [facility] 2022-11-25 2022-11-25 (TEL) STLMLC STLMLC [id number] [facility] 00:00:00 00:00:00 [facility] 2022-11-12 2022-11-12 (TEL) STLMLC STLMLC [id number] Co m[facility] 00:00:00 00:00:00 [facility] 2022-10-31 2022-10-31 (TEL) STLMLC STLMLC [id number] [facility] m[facility] 00:00:00 00:00:00 [facility] 2022-10-11 2022-10-11 (TEL) STLMLC STLMLC [id number] Co mmon 00:00:00 00:00:00 [facility] 2022-10-09 2022-10-09 (TEL) STLMLC STLMLC [id number] Co mmon 00:00:00 00:00:00 [facility] 2022-09-10 2022-09-10 (TEL) STLMLC STLMLC [id number] Co mmon 00:00:00 00:00:00 [facility] 2022-08-26 2022-08-26 (TEL) STLMLC STLMLC [id number] Co m[facility] 00:00:00 00:00:00 [facility] 2022-08-20 2022-08-20 (TEL) STLMLC STLMLC [id number] Co mmon 00:00:00 00:00:00 [facility] 2022-08-20 2022-08-20 OFFICE STLMLC STLMLC [id number] [facility] 00:00:00 00:00:[address] 2022-07-31 2022-07-31 (TEL) STLMLC STLMLC [id number] Co mmon 00:00:00 00:00:00 [facility] 2022-07-05 2022-07-05 (TEL) STLMLC STLMLC [id number] Co m[facility] 00:00:00 00:00:00 [facility] 2022-06-26 2022-06-26 (TEL) STLMLC STLMLC [id number] [facility] m[facility] 00:00:00 00:00:00 [facility] 2022-06-26 2022-06-26 (TEL) STLMLC STLMLC [id number] Co m[facility] 00:00:00 00:00:00 [facility] 2022-06-26 2022-06-26 (TEL) STLMLC STLMLC [id number] Co m[facility] 00:00:00 00:00:00 [facility] 2022-06-25 2022-06-25 (TEL) STLMLC STLMLC [id number] Co mmon 00:00:00 00:00:00 [facility] 2022-06-25 2022-06-25 (TEL) STLMLC STLMLC [id number] Co mmon 00:00:00 00:00:00 [facility] 2022-06-20 2022-06-20 (TEL) STLMLC STLMLC [id number] Co m[facility] 00:00:00 00:00:00 [facility] 2022-06-18 2022-06-18 SUB ANNUAL STLMLC STLMLC [id number] [facility] 00:00:00 00:00:00 MCR [facility] VISIT [facility] 2022-06-18 2022-06-18 OFFICE STLMLC STLMLC [id number] Co mmon 00:00:00 00:00:00 VISIT [facility] PT LEVEL 3 [facility] 2022-06-07 2022-06-07 (TEL) STLMLC STLMLC [id number] Co mmon 00:00:00 00:00:00 [facility] 2022-05-06 2022-05-06 (TEL) STLMLC STLMLC [id number] Co mmon 00:00:00 00:00:00 [facility] 2022-03-12 2022-03-12 (TEL) STLMLC STLMLC [id number] Co mmon 00:00:00 00:00:00 [facility] 2022-02-18 2022-02-18 (TEL) STLMLC STLMLC [id number] Co mmon 00:00:00 00:00:00 [facility] 2021-12-06 2021-12-06 (TEL) STLMLC STLMLC [id number] Co mmon 00:00:00 00:00:00 [facility] 2021-08-14 2021-08-14 Outpatient STLMLC STLMLC [id number] [facility] 00:00:00 00:00:00 [facility] 2021-08-13 2021-08-13 Outpatient STLMLC STLMLC [id number] [facility] 00:00:00 00:00:00 [facility] 2021-06-04 2021-06-04 Outpatient STLMLC STLMLC [id number] [facility] 00:00:00 00:00:00 [facility] 2021-05-16 2021-05-16 Outpatient STLMLC STLMLC [id number] [facility] 00:00:00 00:00:00 [facility] 2021-05-15 2021-05-15 Outpatient STLMLC STLMLC [id number] [facility] 00:00:00 00:00:00 [facility] 2021-05-11 2021-05-11 Outpatient STLMLC STLMLC [id number] [facility] 00:00:00 00:00:00 [facility] 2020-03-21 2020-03-21 Hospital Radiology [facility] [id number] [facility] 13:25:00 23:59:00 Encounter [place] [id number] ity of [place] [id number] [facility] [id number] [facility] [address] [place] 2020-03-21 2020-03-21 Hospital Radiology [facility] [id number] 13:25:00 23:59:00 Encounter [place] [id number] [place] [id number] [place] [id number] 2020-03-21 2020-03-21 Outpatient R RADIOLOGY [facility] [id number] [facility] 00:00:00 00:00:00 ity of [facility] 2020-03-21 2020-03-21 Orders Doctor RUDOLPH [id number] [facility] 00:00:00 00:00:00 Only Unassigned, NILA [id number] ity of [place] [facility] [id number] [place] [id number] [place] [address] [place] 2020-03-21 2020-03-21 Orders Doctor RUDOLPH [id number] 00:00:00 00:00:00 Only Unassigned, NILA [id number] [place] [facility] [id number] Results Test Description Test Time Test Comments Results Result Comments Source Lipid Panel w/ Chol/HDL Ratio 2022-06-21 00:00:00 Test Item Value Reference Range Interpretation Comme nts Cholesterol, Total (test code 231 mg/dL See_Comment H [Automated message] The system = 3-3) which generated this result transmitted ref erence range: 100-199 mg/dL. The reference range was not u sed to interpret this result as normal/abnormal. Triglycerides (test code = 234 mg/dL See_Comment H [Automated message] The system 2570-8) which generated this result transmitted ref erence range: 0-149 mg/dL. Th e reference range was not used to interpret this result as bryan l/abnormal. HDL Cholesterol (test code = 46 mg/dL See_Comment [Automated message] The system 2085-07) which generated this result transmitted ref erence range: >39 mg/dL. The refe rence range was not used to int erpret this result as bryan l/abnormal. T. Chol/HDL Ratio (test code 5.0 ratio See_Comment H [Automated message] The system = 9830-1) which generated this result transmitted ref erence range: 0.0-4.4 ratio. The reference range was not u sed to interpret this result as normal/abnormal. UA/M w/rflx Culture, [id number] 00:00:00 Test Item Value Reference Range Interpretation Comments Specific [place] (test 1.019 1.005-1.030 code = 2965-2) pH (test code = 8.5 5.0-7.5 H 5803-2) Urine-Color (test code Yellow Yellow = 5778-6) Appearance (test code Cloudy Clear A = 5767-9) WBC Esterase (test 2+ Negative A code = 5799-2) Protein (test code = 1+ Negative/Trace A 29695-7) Glucose (test code = Negative Negative 2349-9) Ketones (test code = Negative Negative 4-8) Occult Blood (test Trace Negative A code = 5794-3) Bilirubin (test code = Negative Negative 5770-3) Urobilinogen,Semi-Qn 0.2 mg/dL See_Comment [Autom ated message] (test code = 10686-2) The sy stem which generated this result transmitted ref erence range: 0.2-1.0 mg/dL. The reference r josef was not used to interpret this result as normal/abnor mal. Nitrite, Urine (test Positive Negative A code = 5802-4) Microscopic See below: Examination (test code = 87472-8) Urinalysis Reflex (test code = UNLOINC) Hemoglobin [id number] 00:00:00 Test Item Value Reference Range Interpretation Comments Hemoglobin A1c (test 5.6 % See_Comment [Autom ated message] The code = 4548-4) system which generated this result tra nsmitted reference range : 4.8-5.6 %. The referenc e range was not used to interpret this result as normal/abnormal . Comp. Metabolic Panel (14) (CMP)2022-06-21 00:00:00 Test Item Value Reference Range Interpretation Comments Glucose (test code = 80 mg/dL See_Comment [Autom ated message] 0835-7) The system [employer] generated this result transmitted ref erence range: 65-99 mg /dL. The reference r josef was not used to interpret this result as normal/abnor mal. BUN (test code = 14 mg/dL See_Comment [Automated message] 3094-0) The system [employer] generated this result transmitted ref erence range: 8-27 mg/ dL. The reference r josef was not used to interpret this result as normal/abnor mal. Creatinine (test code 0.85 mg/dL See_Comment [Auto mated message] = 2160-0) The system [employer] generated this result transmitted ref erence range: 0.57-1.0 0 mg/dL. The refe rence range was not u sed to interpret this result as normal/abnor mal. BUN/Creatinine Ratio 16 12-28 (test code = 3097-3) Sodium (test code = 143 mmol/L See_Comment [Automa josie message] 1391-2) The system [employer] generated this result transmitted ref erence range: 134-144 mmol/L. The ref erence range was not u sed to interpret this result as normal/abnor mal. Potassium (test code = 4.7 mmol/L See_Comment [Aut omated message] 3897-3) The system [employer] generated this result transmitted ref erence range: 3.5-5.2 mmol/L. The ref erence range was not u sed to interpret this result as normal/abnor mal. Chloride (test code = 100 mmol/L See_Comment [Auto mated message] 2074-) The system [facility] generated this result transmitted ref erence range: 96-106 m mol/L. The reference r josef was not used to interpret this result as normal/abnor mal. Carbon Dioxide, Total 26 mmol/L See_Comment [Auto mated message] (test code = 2028-07) The s tem which generated this result transmitted ref erence range: 20-29 mm ol/L. The reference r josef was not used to interpret this result as normal/abnor mal. Calcium (test code = 9.3 mg/dL See_Comment [Autom ated message] 88938-0) The system [facility] generated this result transmitted ref erence range: 8.7-10.3 mg/dL. The refe rence range was not u sed to interpret this result as normal/abnor mal. Protein, Total (test 6.9 g/dL See_Comment [Autom ated message] code = 2885-2) The system [facility] generated this result transmitted ref erence range: 6.0-8.5 g/dL. The reference r josef was not used to interpret this result as normal/abnor mal. Albumin (test code = 4.3 g/dL See_Comment [Autom ated message] 1751-7) The system [facility] generated this result transmitted ref erence range: 3.8-4.8 g/dL. The reference r josef was not used to interpret this result as normal/abnor mal. Globulin, Total (test 2.6 g/dL See_Comment [Auto mated message] code = 37384-3) The system w [facility] generated this result transmitted ref erence range: 1.5-4.5 g/dL. The reference r josef was not used to interpret this result as normal/abnor mal. A/G Ratio (test code = 1.7 1.2-2.2 1759-0) Bilirubin, Total (test 0.3 mg/dL See_Comment [Aut omated message] code = 1974-2) The system wh ich generated this result transmitted ref erence range: 0.0-1.2 mg/dL. The reference r josef was not used to interpret this result as normal/abnor mal. Alkaline Phosphatase 94 IU/L See_Comment [Autom ated message] (test code = 6768-6) The sys tem which generated this result transmitted ref erence range: 44-121 I U/L. The reference r josef was not used to interpret this result as normal/abnor mal. AST (SGOT) (test code 23 IU/L See_Comment [Auto mated message] = 1920-8) The system ic h generated this result transmitted ref erence range: 0-40 IU/ L. The reference range was not used to int erpret this result as normal/abnormal . ALT (SGPT) (test code 20 IU/L See_Comment [Auto mated message] = 1742-6) The system ic h generated this result transmitted ref erence range: 0-32 IU/ L. The reference range was not used to int erpret this result as normal/abnormal . CBC With Differential/[id number] 00:00:00 Test Item Value Reference Range Interpretation Comments WBC (test code = 9.7 x10E3/uL See_Comment [Automated 4590-2) message] The sy stem which generated this result transmitted reference range : 3.4-10.8 x10E3/ uL. The reference r josef was not used to interpret this result as normal/abnormal . RBC (test code = 5.69 x10E6/uL See_Comment H [Automate d 789-8) message] The sy stem which generated this result transmitted reference range : 3.77-5.28 x10E6 /uL. The reference r josef was not used to interpret this result as normal/abnormal . Hemoglobin (test code 13.8 g/dL See_Comment [Auto mated = 958-7) message] The sy stem which generated this result transmitted reference range : 11.1-15.9 g/dL. The reference range was not used to interpret this result as normal/abnormal . Hematocrit (test code 43.7 % See_Comment [Auto mated = 7754-3) message] The sy stem which generated this result transmitted reference range : 34.0-46.6 %. Th e reference range was not used to interpret this result as normal/abnormal . MCV (test code = 77 fL See_Comment L [Automated 787-2) message] The sy stem which generated this result transmitted reference range : 79-97 fL. The reference range was not used to interpret this result as normal/abnormal . MCH (test code = 24.3 pg See_Comment L [Automated 785-6) message] The sy stem which generated this result transmitted reference range : 26.6-33.0 pg. T he reference range was not used to interpret this result as normal/abnormal . MCHC (test code = 31.6 g/dL See_Comment [Automate d 786-4) message] The sy stem which generated this result transmitted reference range : 31.5-35.7 g/dL. The reference range was not used to interpret this result as normal/abnormal . RDW (test code = 13.5 % See_Comment [Automated 788-0) message] The sy stem which generated this result transmitted reference range : 11.7-15.4 %. Th e reference range was not used to interpret this result as normal/abnormal . Platelets (test code 298 x10E3/uL See_Comment [Autom ated = 777-3) message] The sy stem which generated this result transmitted reference range : 150-450 x10E3/u L. The reference r josef was not used to interpret this result as normal/abnormal . Neutrophils (test 53 % Not Estab. % code = 770-8) Lymphs (test code = 33 % Not Estab. % 736-9) Monocytes (test code 11 % Not Estab. % = 5905-5) Eos (test code = 2 % Not Estab. % 713-8) Basos (test code = 1 % Not Estab. % 706-2) Immature Cells (test code = UNLOINC) Neutrophils 5.2 x10E3/uL See_Comment [Automated (Absolute) (test code messag e] The system = 751-8) which generated this result transmitted reference range : 1.4-7.0 x10E3/u L. The reference r josef was not used to interpret this result as normal/abnormal . Lymphs (Absolute) 3.2 x10E3/uL See_Comment H [Automate d (test code = 731-0) message] The system which generated this result transmitted reference range : 0.7-3.1 x10E3/u L. The reference r josef was not used to interpret this result as normal/abnormal . Monocytes(Absolute) 1.1 x10E3/uL See_Comment H [Automa josie (test code = 742-7) message] The system which generated this result transmitted reference range : 0.1-0.9 x10E3/u L. The reference r josef was not used to interpret this result as normal/abnormal . Eos (Absolute) (test 0.2 x10E3/uL See_Comment [Autom ated code = 711-2) message] The s ystem which generated this result transmitted reference range : 0.0-0.4 x10E3/u L. The reference r josef was not used to interpret this result as normal/abnormal . Baso (Absolute) (test 0.1 x10E3/uL See_Comment [Auto mated code = 704-7) message] The s ystem which generated this result transmitted reference range : 0.0-0.2 x10E3/u L. The reference r josef was not used to interpret this result as normal/abnormal . Immature Granulocytes 0 % Not Estab. % (test code = 15697-8) Immature Grans (Abs) 0.0 x10E3/uL See_Comment [Autom ated (test code = 21127-0) messag e] The system which generated this result transmitted reference range : 0.0-0.1 x10E3/u L. The reference r josef was not used to interpret this result as normal/abnormal . NRBC (test code = 26134-1) Hematology Comments: (test code = 06399-9) TSH reflex to [id number] 00:00:00 Test Item Value Reference Range Interpretation Comments TSH (test code = 3.560 uIU/mL See_Comment [Automated message] The 36420-5) system which ge nerated this result tra nsmitted reference range : 0.450-4.500 uIU /mL. The reference range was not used to interpr et this result as normal/abnormal .
[2023-01-30] MEDS ORDERED: LIDOCAINE VISCOUS 2% SOLN 15 ML UDC ONE (07:53)
[2023-01-30] MEDS ORDERED: ONDANSETRON 4 MG/2 ML VIAL ONE (07:53)
[2023-01-30] MEDS ORDERED: MAGNES/ALUMIN/SIMET 30ML UCUP ONE (07:53)
[2023-01-30 07:55] LABS: Absolute Lymphocytes (CBC) 0.5 K/uL (0.7-4.9); Hematocrit 40.1 % (36.0-45.0); Lymphocytes % 2.7 % (15.3-44.8); MCV 75.9 fL (80-100); MPV 9.5 fL (7.6-11.3); RBC Red Blood Cell Count 5.28 M/uL (3.86-4.86)
[2023-01-30] MEDS ORDERED: Ringers Lactate 1,000 ML IV ONE ×2 (08:01→22:09)
[2023-01-30 08:15] LABS: Albumin 2.9 g/dL (3.4-5.0); Bilirubin Total 0.6 mg/dL (0.2-1.0); Potassium 2.8 mEq/L (3.5-5.1); Protein, Total 6.8 g/dL (6.4-8.2)
[2023-01-30 08:58] LABS: SARS-COV-2 RT PCR NEGATIVE (NEGATIVE)
[2023-01-30 09:11] LABS: Specific Gravity 1.014 (1.005-1.030); Urine Bacteria 20-50 /HPF (<20); Urine Bilirubin NEGATIVE (Negative); Urine Blood 2+ (Negative); Urine Clarity Turbid (Clear); Urine Color Yellow (Yellow); Urine Glucose NEGATIVE (Negative); Urine Mucus Slight /HPF (None Seen); Urine Protein 1+ (Negative); Urine RBC 21-50 /HPF (None Seen); Urine Urobilinogen Normal (Normal); Urine WBC Clump Rare /HPF (None Seen); Urine pH 5.5 (5.0-7.0)
--- NOTE | 2023-01-30 10:04 | RAD REPORT ---
EXAM DESCRIPTION: CT - Chest Abd Pelvis Wo Con - 01/30/2023 9:11 am CLINICAL HISTORY: Right lower quadrant pain for 3 days. COUGH COMPARISON: Ct Low Dose Chest Screening dated 09/01/2017 TECHNIQUE: Approximately 100 mL nonionic IV contrast was administered to the patient. All CT scans are performed using dose optimization technique as appropriate and may include automated exposure control or mA/KV adjustment according to patient size. FINDINGS: The lungs are clear.No pleural or pericardial effusion.No intrathoracic adenopathy. The liver, spleen, pancreas, and adrenal gland are within normal limits. Gallbladder is not well vis ualized, could be surgically removed. Moderate to severe left hydronephrosis. Mild perinephric fat stranding, nonspecific appear A 1 centim eter calculus resides at the left pelviureteric junction. Another punctate calcific focus is present of the right renal hilum, favored to represent a vascular calcification. Exophytic left mid to lower pole ovoid 5.7 centimeter cystic lesion, not well evaluated. Suboptimal distention of the urinary rosalva dder limiting evaluation. Sequelae of prior partial gastrectomy. No bowel obstruction, free air, free fluid or abscess. Normal appendix. Fluid filling of the cecum and ascending colon, nonspecific and could relate to mild coliti s. No pathologic lymphadenopathy in the abdomen or pelvis. No worrisome osseous finding. Degenerative changes with levoconvex scoliosis of the lumbar spine. IMPRESSION: Moderate to severe left hydronephrosis with a 1 centimeter obstructing left of ureteric junction calculus. Nonspecific mild perinephric fat stranding. Fluid filling within the ascending colon, nonspecific and could reflect mild colitis. Other incidental findings, as above. The findings were communicated to Juan Hemphill on 01/30/2023 at 10:00 hours.
[2023-01-30] MEDS ORDERED: CEFEPIME 1 GM/VIAL ONE ×2 (10:09→21:50)
[2023-01-30] MEDS ORDERED: NA CHLORIDE 0.9% 100 ML ONE ×2 (10:09→21:49)
--- NOTE | 2023-01-30 11:03 | EDPHYS ---
Physician Documentation [facility] Name: Adelaide Perry Age: 67 yrs Sex: Female : 1955 Arrival Date: 01/30/2023 Time: 07:03 Bed 16 Private MD: ED Physician Juan Hemphill HPI: 01/30 07:56 Patient is a 67-year-old with COPD hypertension dyslipidemia here with burning jr11 abdominal pain that happened approximately 24 hours ago. Patient states also that she had a lot of gas and foamy stool, showed me a picture of her stool, no overt blood. Patient otherwise with generalized weakness, denies any worsening of her COPD. Patient states that she usually dialysis due to, has kept it on to. Patient with a recent hospitalization last month, denies any falls, denies any vomiting, no urinary complaints.. Historical: - Allergies: 07:13 Aspirin; aa9 07:13 Iodine; aa9 07:13 Sulfa (Sulfonamide Antibiotics); aa9 - PMHx: 07:13 COPD; Hyperlipidemia; Hypertension; aa9 - PSHx: 07:13 Cholecystectomy; aa9 - Immunization history:: Client reports receiving the 2nd dose of the Covid vaccine. - Social history:: Smoking status: Patient denies any tobacco usage or history of. ROS: 07:56 All other systems are negative. jr11 Exam: 07:56 Constitutional: appears chronically ill Head/Face: Normocephalic, atraumatic. Eyes: jr11 Extra-ocular motions intact. Lids and lashes normal. Conjunctiva and sclera are non-icteric and not injected. Cornea within normal limits. Periorbital areas with no swelling, redness, or edema. ENT: Nares patent. No nasal discharge, no septal abnormalities noted. Oropharynx with no redness, swelling, or masses, exudates, or evidence of obstruction, uvula midline. Mucous membranes moist. Cardiovascular: Regular rate and rhythm with a normal S1 and S2. No gallops, murmurs, or rubs. Normal PMI, no JVD. No pulse deficits. Respiratory: diminished diffusely, no wheezing Abdomen/GI: diffusely TTP, no peritonitis Skin: Warm, dry with normal turgor. Normal color with no rashes, no lesions, and no evidence of cellulitis. Neuro: Awake and alert, GCS 15, oriented to person, place, time, and situation. No gross motor or sensory deficits. Vital Signs: 07:00 BP 118 / 59; Pulse 118; Resp 22 S; Temp 98.9(O); Pulse Ox 97% on 3 lpm NC; Weight aa9 104.33 kg (R); Height 5 ft. 5 in. (R); 07:10 BP 85 / 55; Pulse 130; Resp 19 S; Temp 100; Pulse Ox 92% on R/A; aa9 07:30 BP 95 / 59; Pulse 92; Resp 26; Pulse Ox 96% on 3 lpm NC; ll1 08:15 BP 118 / 78; Pulse 107; Resp 26; Pulse Ox 96% ; ll1 09:30 BP 95 / 52; Pulse 98; Resp 25; Pulse Ox 94% on 3 lpm NC; ll1 09:59 BP 101 / 53; Pulse 104; Resp 24; Pulse Ox 96% on 3 lpm NC; ll1 10:17 BP 98 / 61; Pulse 102; Resp 24; Temp 98; Pulse Ox 95% on 3 lpm NC; ll1 10:45 BP 89 / 51; Pulse 101; Pulse Ox 93% ; ll1 11:00 BP 87 / 50; Pulse 99; Pulse Ox 95% ; ll1 11:33 BP 91 / 43; Pulse 96; Resp 24; Pulse Ox 97% on 3 lpm NC; ll1 11:37 BP 99 / 56; Pulse 98; Pulse Ox 96% on 3 lpm NC; ll1 11:43 BP 105 / 54; Pulse 97; Pulse Ox 97% on 3 lpm NC; ll1 11:52 BP 107 / 62; Pulse 97; Pulse Ox 97% ; ll1 12:10 BP 110 / 66; Pulse 94; Pulse Ox 97% on 3 lpm NC; ll1 12:31 BP 101 / 55; Pulse 99; Pulse Ox 96% on 3 lpm NC; ll1 13:00 BP 93 / 30; Pulse 102; Pulse Ox 96% ; ll1 13:19 BP 122 / 70; Pulse 96; Resp 24; Pulse Ox 95% on 3 lpm NC; ll1 13:39 BP 113 / 65; Pulse 97; Resp 24; Pulse Ox 96% ; ll1 14:00 BP 108 / 55; Pulse 92; ll1 14:30 BP 113 / 63; Pulse 102; Resp 24; Pulse Ox 96% on 3 lpm NC; ll1 14:50 BP 110 / 52; Pulse 99; ll1 15:00 BP 113 / 58; Pulse 97; ll1 15:11 BP 107 / 54; Pulse 94; Pulse Ox 94% on 3 lpm NC; ss 15:38 BP 121 / 78; Pulse 95; Resp 24; Pulse Ox 95% on 3 lpm NC; ss 16:18 BP 126 / 80; Pulse 93; Resp 24; Pulse Ox 93% on 3 lpm NC; ll1 17:01 BP 132 / 80; Pulse 92; Resp 24; Temp 98.7; Pulse Ox 94% on 3 lpm NC; ll1 17:13 BP 132 / 79; Pulse 96; Resp 23; Pulse Ox 95% on 3 lpm NC; ll1 17:25 BP 107 / 59; Pulse 100; Resp 26; Pulse Ox 96% on 3 lpm NC; ll1 18:00 BP 107 / 67; Pulse 106; Resp 24; Pulse Ox 97% ; ll1 18:28 BP 118 / 80; Pulse 105; Resp 24; Pulse Ox 96% on 3 lpm NC; ll1 18:50 BP 87 / 63; Pulse 91; Resp 24; Pulse Ox 94% ; ll1 19:12 BP 102 / 42; Pulse 90; ll1 19:30 BP 104 / 59; Pulse 90; Resp 18; Pulse Ox 97% on 3 lpm NC; eh3 20:00 BP 102 / 59; Pulse 85; Resp 24; Pulse Ox 98% on 3 lpm NC; eh3 20:30 BP 97 / 48; Pulse 92; Resp 24; Pulse Ox 98% on 3 lpm NC; eh3 21:00 BP 102 / 70; Pulse 98; Resp 22; Pulse Ox 99% on 3 lpm NC; eh3 07:00 Body Mass Index 38.27 (104.33 kg, 165.1 cm) aa9 MDM: 07:33 Patient medically screened. jr11 07:56 Differential diagnosis: gastritis, gastroesophageal reflux disease, non-specific abd jr11 pain, pancreatitis, Pyelonephritis. Data reviewed: vital signs, nurses notes. ED course: Patient is a 67-year-old with COPD hypertension dyslipidemia here with diffuse abdominal pain, described as burning, potentially gastritis GI related, this has been going on for a few days, will send a set of troponin to rule out ACS. Patient otherwise with soft blood pressures, will gently hydrate, reassess. Patient also slightly tachycardic initially, high 80s to my exam. Patient in no significant acute distress. Patient does like here at baseline chronically ill.. 10:46 ED course: trying urology again. jr11 10:48 ED course: Urology rec percutaneous nephrostomy tube not stent here per Elie . jr11 11:35 ED course: Spoke to Urology Dr Perera, wants Pt to go to ICU, ICU accepted . jr11 19:00 ED course: Patient received 1L concern for volume overload, sep 1 reassessment done. jr11 20:51 ED course: Consulted with Dr. Delgadillo, pt still waiting on room from [facility], has rn been accepted by urology and Control Valve Mechanic at [facility], but we have not been assigned a bed since this morning. Contacted [facility] once again for update, not able to give me specific time frame for bed availability at this time. Per Dr. Delgadillo, if unable to get bed in timely fashion will come in and take care of patient. . 20:57 Counseling: I had a detailed discussion with the patient and/or guardian regarding: the rn historical points, exam findings, and any diagnostic results supporting the discharge/admit diagnosis, lab results, radiology results, the need for further work-up and treatment in the hospital. Response to treatment: the patient's symptoms have mildly improved after treatment, and as a result, I will admit patient. 21:10 ED course: Offered transfer to [facility] given [facility] unable to accommodate in rn timely fashion, Dr. Delgadillo states will take to OR here.. 01/30 07:36 Order name: Urine Microscopic Only [facility] 01/30 08:29 Order name: CBC with Automated Diff [facility] 01/30 08:29 Order name: Comprehensive Metabolic Panel [facility] 01/30 08:29 Order name: Lipase [facility] 01/30 08:30 Order name: Lactate w/ 2H reflex if indic. [facility] 01/30 08:45 Order name: Urinalysis w/ reflexes 01/30 08:58 Order name: COVID-19/FLU A+B/RSV [facility] 01/30 09:13 Order name: Urinalysis w/ reflexes; Complete Time: 09:21 EDKS 01/30 09:22 Order name: Urine Culture [facility] 01/30 09:35 Order name: Urine Culture [facility] 01/30 11:53 Order name: Lactate Sepsis 2 HR Follow-up; Complete Time: 11:55 EDKS 01/30 08:48 Order name: CT Chest Wo Con [facility] 01/30 08:48 Order name: CT Abd/Pelvis - Without Contrast [facility] 01/30 09:33 Order name: Chest Abd Pelvis Wo Con; Complete Time: 10:05 EDMS 01/30 07:18 Order name: IV Saline Lock; Complete Time: 07:19 ll1 01/30 07:18 Order name: Labs collected and sent; Complete Time: 07:19 ll Administered Medications: 07:54 Drug: GI Cocktail with - (Phenobarbital-Belladonna PO 10 ml, Maalox PO ll1 Suspension 30 ml, Lidocaine Mucous Membrane Liquid 2 % 20 ml) Route: PO; 11:51 Follow up: Response: No adverse reaction [facility] 07:54 Drug: Ondansetron IVP 4 mg Route: IVP; Site: left antecubital; [facility] 11:51 Follow up: Response: No adverse reaction [facility] 08:04 Drug: Lactated Ringers Solution IV 500 ml Route: IV; Rate: 150 bolus; Site: left [facility] antecubital; 11:51 Follow up: IV Status: Completed infusion; IV Intake: 150ml 1 10:15 Drug: Lactated Ringers Solution IV 500 ml Route: IV; Rate: 500 bolus; Site: left [facility] antecubital; 11:23 Follow up: IV Status: Completed infusion; IV Intake: 500ml 1 10:16 Drug: Cefepime IVPB 1 grams Route: IVPB; Rate: 200 ml/hr; Infused Over: 30 mins; Site: [facility] left antecubital; 10:47 Follow up: Response: No adverse reaction; IV Status: Completed infusion; IV Intake: ll1 100ml 11:33 Drug: Norepinephrine IV 0.1 mcg/kg/min Route: IV; Rate: per protocol; Site: left [facility] antecubital; 21:50 Follow up: IV Status: Infusion continued upon admission; IV Intake: 270ml [facility] 21:50 Drug: Cefepime IVPB 1 grams Route: IVPB; Rate: 200 ml/hr; Infused Over: 30 mins; Site: [facility] left antecubital; 21:50 Follow up: Response: Medication administered at discharge.; IV Status: Infusion eh3 continued upon admission 21:50 Follow up: Response: No adverse reaction; IV Status: Infusion continued upon admission; eh3 IV Intake: 2ml Disposition Summary: 01/30/23 21:00 Hospitalization Ordered Hospitalization Status: Inpatient Admission rn Provider: Chelsey Hernandez rn Location: Intensive Care Unit rn Condition: Stable(01/30/23 21:00) rn Problem: new(01/30/23 21:00) rn Symptoms: have improved(01/30/23 21:00) rn Bed/Room Type: Standard rn Room Assignment: 8-(01/30/23 21:23) mw Diagnosis - Hydronephrosis with renal and ureteral calculous obstruction rn - UTI/ Urinary tract infection, site not specified rn - Severe sepsis with septic shock(01/30/23 21:00) rn Forms: - Medication Reconciliation Form rn - SBAR form warning coordination meteorologist time excluding procedures: 11:04 Critical care time: Bedside Care: 15 minutes, Consultation: 10 minutes, Family [facility] Intervention: 6 minutes. Total time: 31 minutes Signatures: Dispatcher [employer] EDMS Deborah Glover RN RN mw Luke Delgado MD MD rn Lewis, Lynsay, RN RN ll1 Juan Hemphill MD MD jr11 Samantha Spaulding RN RN eh3 Dalila Burden, RN RN aa9 Corrections: (The following items were deleted from the chart) 09:37 08:29 CBC+H.LAB.BRZ ordered. EDMS EDMS 09:37 08:29 COMPREHENSIVE METABOLIC PANEL+C.LAB.BRZ ordered. EDMS EDMS 09:37 08:29 LIPASE+C.LAB.BRZ ordered. EDMS EDMS 09:37 08:29 LACTATE+C.LAB.BRZ ordered. EDMS EDMS 09:37 08:29 COVID-19/FLU A+B/RSV+MOL.LAB.BRZ ordered. EDMS EDMS 20:57 11:03 Acute care with IR jr11 rn 20:57 11:03 [facility] jr11 rn 20:57 11:03 Higher level of care jr11 rn 20:57 11:03 Serious jr11 rn 20:57 11:03 new 11 rn 20:57 11:03 are unchanged jr11 rn 20:57 11:03 infected renal stone jr11 rn 20:57 11:03 Severe sepsis with septic shock jr11 rn 21:23 21:00 rn mw
--- NOTE | 2023-01-30 11:03 | ER ---
Nurse's Notes [facility] Name: Adelaide Perry Age: 67 yrs Sex: Female : 1955 Arrival Date: 01/30/2023 Time: 07:03 Bed 16 Private MD: Diagnosis: Hydronephrosis with renal and ureteral calculous obstruction;UTI/ Urinary tract infection, site not specified;Severe sepsis with septic shock Presentation: 01/30 07:10 Chief complaint: EMS states: Pt c/o RLQ pain for 3 days, describes it as burning, aa9 states she has not had a BM in 3 days. on scene pt was pale and clammy. provided 1000 NS en route pt condition improved. Coronavirus screen: Vaccine status: Patient reports receiving the 2nd dose of the covid vaccine. Ebola Screen: No symptoms or risks identified at this time. Initial Sepsis Screen:. Risk Assessment: Do you want to hurt yourself or someone else? Patient reports no desire to harm self or others. Onset of symptoms was January 30, 2023. Care prior to arrival: Medication(s) given: Normal saline infusion, 1000 mL, IV initiated. 20 GA, in the left antecubital area, Glucose check: 114 Oxygen administered. via nasal cannula. 07:10 Method Of Arrival: EMS: [facility] aa9 07:10 Acuity: ENDER 3 aa9 14:52 Initial Sepsis Screen: Does the patient meet any 2 criteria? RR > 20 per min. Altered ll1 Mental Status. HR > 90 bpm. Yes Does the patient have a suspected source of infection? Yes: Dysuria/Frequency/Urgency/UTI. Triage Assessment: 07:14 General: Appears uncomfortable, obese, unkempt, Behavior is cooperative, drowsy. Pain: aa9 Complains of pain in right lower quadrant Quality of pain is described as burning. Neuro: Level of Consciousness is awake, obeys commands, Oriented to person, place, situation. Cardiovascular: Rhythm is sinus tachycardia. Respiratory: Airway is patent Respiratory effort is even, labored. GI: Abdomen is obese, Reports lower abdominal pain, Patient currently denies diarrhea, nausea, vomiting. : No signs and/or symptoms were reported regarding the genitourinary system. Derm: Skin is intact, with poor turgor Skin is clammy, Skin is pale, Skin temperature is cool. Musculoskeletal: No signs and/or symptoms reported regarding the musculoskeletal system. Historical: - Allergies: 07:13 Aspirin; aa9 07:13 Iodine; aa9 07:13 Sulfa (Sulfonamide Antibiotics); aa9 - PMHx: 07:13 COPD; Hyperlipidemia; Hypertension; aa9 - PSHx: 07:13 Cholecystectomy; aa9 - Immunization history:: Client reports receiving the 2nd dose of the Covid vaccine. - Social history:: Smoking status: Patient denies any tobacco usage or history of. Screenin:26 [facility] ED Fall Risk Assessment (Adult) Intoxicated or Sedated Yes (3 pts) Impaired ll1 Gait Yes (1 pt) Mobility Assist Device Used Yes (1 pt) Score/Fall Risk Level 3 or more points = High Risk Oriented to surroundings, Maintained a safe environment, Educated pt \T\ family on fall prevention, incl call for assistance when getting out of bed, Hourly rounding (assess needs \T\ fall precautionary measures) done, Utilized family, sitter, or virtual molding machine operator as indicated. Abuse screen: Denies threats or abuse. Nutritional screening: No deficits noted. Tuberculosis screening: No symptoms or risk factors identified. Assessment: 07:25 Reassessment: No changes from previously documented assessment. Dr. Hemphill at BS. ll1 07:55 Reassessment: No changes from previously documented assessment. Patient and/or family ll1 updated on plan of care and expected duration. Pain level reassessed. Patient is alert, oriented x 3, equal unlabored respirations, skin warm/dry/pink. 08:42 Reassessment: No changes from previously documented assessment. UA obtained BS commode. ll1 09:40 Reassessment: No changes from previously documented assessment. Patient and/or family ll1 updated on plan of care and expected duration. Pain level reassessed. Patient is alert, oriented x 3, equal unlabored respirations, skin warm/dry/pink. 10:16 Reassessment: No changes from previously documented assessment. Patient and/or family ll1 updated on plan of care and expected duration. Pain level reassessed. Patient is alert, oriented x 3, equal unlabored respirations, skin warm/dry/pink. 10:47 Reassessment: No changes from previously documented assessment. Patient and/or family ll1 updated on plan of care and expected duration. Pain level reassessed. Patient is alert, oriented x 3, equal unlabored respirations, skin warm/dry/pink. 10:57 Reassessment: No changes from previously documented assessment. Daughter at . Updated ll1 on POC. 11:34 Reassessment: No changes from previously documented assessment. Patient and/or family ll1 updated on plan of care and expected duration. Pain level reassessed. Patient is alert, oriented x 3, equal unlabored respirations, skin warm/dry/pink. 11:43 Reassessment: No changes from previously documented assessment. Patient and/or family ll1 updated on plan of care and expected duration. Pain level reassessed. Patient is alert, oriented x 3, equal unlabored respirations, skin warm/dry/pink. 11:52 Reassessment: No changes from previously documented assessment. Daughter Izzy ll1 . Ok to give patient information over the phone. 12:32 Reassessment: No changes from previously documented assessment. Patient and/or family ll1 updated on plan of care and expected duration. Pain level reassessed. Patient is alert, oriented x 3, equal unlabored respirations, skin warm/dry/pink. 13:10 Reassessment: Norepinephrine drip increased to .1 mcg/kg/min. ll1 14:05 Reassessment: No changes from previously documented assessment. Patient and/or family ll1 updated on plan of care and expected duration. Pain level reassessed. 14:52 Reassessment: No changes from previously documented assessment. Patient and/or family ll1 updated on plan of care and expected duration. Pain level reassessed. Patient is alert, oriented x 3, equal unlabored respirations, skin warm/dry/pink. 15:39 Reassessment: No changes from previously documented assessment. Patient and/or family ss updated on plan of care and expected duration. Pain level reassessed. 16:18 Reassessment: No changes from previously documented assessment. Patient and/or family ll1 updated on plan of care and expected duration. Pain level reassessed. 16:37 Reassessment: No changes from previously documented assessment. Patient and/or family ll1 updated on plan of care and expected duration. Pain level reassessed. Patient is alert, oriented x 3, equal unlabored respirations, skin warm/dry/pink. 17:10 Reassessment: No changes from previously documented assessment. Norepinephrine reduced ll1 to .05 mcg/kg/min per Dr. Hemphill order. 17:25 Reassessment: No changes from previously documented assessment. ll1 18:25 Reassessment: No changes from previously documented assessment. Patient and/or family ll1 updated on plan of care and expected duration. Pain level reassessed. Patient is alert, oriented x 3, equal unlabored respirations, skin warm/dry/pink. Norepinephrine drip stopped per Dr. Hemphill. 19:00 Reassessment: Patient appears in no apparent distress at this time. Patient and/or eh3 family updated on plan of care and expected duration. Pain level reassessed. Patient is alert, oriented x 3, equal unlabored respirations, skin warm/dry/pink. 19:03 Reassessment: No changes from previously documented assessment. Norepinephrine drip ll1 restarted at .05 mcg/kg/min. 19:30 Reassessment: Patient appears in no apparent distress at this time. Patient and/or eh3 family updated on plan of care and expected duration. Pain level reassessed. Patient is alert, oriented x 3, equal unlabored respirations, skin warm/dry/pink. 20:00 Reassessment: Patient appears in no apparent distress at this time. Patient and/or eh3 family updated on plan of care and expected duration. Pain level reassessed. Patient is alert, oriented x 3, equal unlabored respirations, skin warm/dry/pink. 20:30 Reassessment: Patient appears in no apparent distress at this time. Patient and/or eh3 family updated on plan of care and expected duration. Pain level reassessed. Patient is alert, oriented x 3, equal unlabored respirations, skin warm/dry/pink. 21:00 Reassessment: Patient appears in no apparent distress at this time. Patient and/or eh3 family updated on plan of care and expected duration. Pain level reassessed. Patient is alert, oriented x 3, equal unlabored respirations, skin warm/dry/pink. 21:30 Reassessment: Patient appears in no apparent distress at this time. Patient and/or eh3 family updated on plan of care and expected duration. Pain level reassessed. Patient is alert, oriented x 3, equal unlabored respirations, skin warm/dry/pink. Vital Signs: 07:00 BP 118 / 59; Pulse 118; Resp 22 S; Temp 98.9(O); Pulse Ox 97% on 3 lpm NC; Weight aa9 104.33 kg (R); Height 5 ft. 5 in. (R); 07:10 BP 85 / 55; Pulse 130; Resp 19 S; Temp 100; Pulse Ox 92% on R/A; aa9 07:30 BP 95 / 59; Pulse 92; Resp 26; Pulse Ox 96% on 3 lpm NC; ll1 08:15 BP 118 / 78; Pulse 107; Resp 26; Pulse Ox 96% ; ll1 09:30 BP 95 / 52; Pulse 98; Resp 25; Pulse Ox 94% on 3 lpm NC; ll1 09:59 BP 101 / 53; Pulse 104; Resp 24; Pulse Ox 96% on 3 lpm NC; ll1 10:17 BP 98 / 61; Pulse 102; Resp 24; Temp 98; Pulse Ox 95% on 3 lpm NC; ll1 10:45 BP 89 / 51; Pulse 101; Pulse Ox 93% ; ll1 11:00 BP 87 / 50; Pulse 99; Pulse Ox 95% ; ll1 11:33 BP 91 / 43; Pulse 96; Resp 24; Pulse Ox 97% on 3 lpm NC; ll1 11:37 BP 99 / 56; Pulse 98; Pulse Ox 96% on 3 lpm NC; ll1 11:43 BP 105 / 54; Pulse 97; Pulse Ox 97% on 3 lpm NC; ll1 11:52 BP 107 / 62; Pulse 97; Pulse Ox 97% ; ll1 12:10 BP 110 / 66; Pulse 94; Pulse Ox 97% on 3 lpm NC; ll1 12:31 BP 101 / 55; Pulse 99; Pulse Ox 96% on 3 lpm NC; ll1 13:00 BP 93 / 30; Pulse 102; Pulse Ox 96% ; ll1 13:19 BP 122 / 70; Pulse 96; Resp 24; Pulse Ox 95% on 3 lpm NC; ll1 13:39 BP 113 / 65; Pulse 97; Resp 24; Pulse Ox 96% ; ll1 14:00 BP 108 / 55; Pulse 92; ll1 14:30 BP 113 / 63; Pulse 102; Resp 24; Pulse Ox 96% on 3 lpm NC; ll1 14:50 BP 110 / 52; Pulse 99; ll1 15:00 BP 113 / 58; Pulse 97; ll1 15:11 BP 107 / 54; Pulse 94; Pulse Ox 94% on 3 lpm NC; ss 15:38 BP 121 / 78; Pulse 95; Resp 24; Pulse Ox 95% on 3 lpm NC; ss 16:18 BP 126 / 80; Pulse 93; Resp 24; Pulse Ox 93% on 3 lpm NC; ll1 17:01 BP 132 / 80; Pulse 92; Resp 24; Temp 98.7; Pulse Ox 94% on 3 lpm NC; ll1 17:13 BP 132 / 79; Pulse 96; Resp 23; Pulse Ox 95% on 3 lpm NC; ll1 17:25 BP 107 / 59; Pulse 100; Resp 26; Pulse Ox 96% on 3 lpm NC; ll1 18:00 BP 107 / 67; Pulse 106; Resp 24; Pulse Ox 97% ; ll1 18:28 BP 118 / 80; Pulse 105; Resp 24; Pulse Ox 96% on 3 lpm NC; ll1 18:50 BP 87 / 63; Pulse 91; Resp 24; Pulse Ox 94% ; ll1 19:12 BP 102 / 42; Pulse 90; ll1 19:30 BP 104 / 59; Pulse 90; Resp 18; Pulse Ox 97% on 3 lpm NC; eh3 20:00 BP 102 / 59; Pulse 85; Resp 24; Pulse Ox 98% on 3 lpm NC; eh3 20:30 BP 97 / 48; Pulse 92; Resp 24; Pulse Ox 98% on 3 lpm NC; eh3 21:00 BP 102 / 70; Pulse 98; Resp 22; Pulse Ox 99% on 3 lpm NC; eh3 07:00 Body Mass Index 38.27 (104.33 kg, 165.1 cm) aa9 ED Course: 07:03 Patient arrived in ED. es 07:07 Ml Faye, DASH is Primary Nurse. [id number] 07:10 Primary Nurse role handed off by Ml Faye RN ll1 07:10 Baljeet Manuel RN is Primary Nurse. ll1 07:10 Arm band placed on Patient placed in an exam room, on a stretcher. ll1 07:11 Juan Hemphill MD is Attending Physician. [id number] 07:13 Triage completed. aa9 07:20 Maintain EMS IV. Dressing intact. Good blood return noted. Site clean \T\ dry. Gauge \T\ ll 1 site: 20 G L AC. 07:27 Patient has correct armband on for positive identification. Bed in low position. Call ll1 light in reach. Side rails up X2. Client placed on continuous cardiac and pulse oximetry monitoring. NIBP monitoring applied. ekg monitor on. 09:35 Chest Abd Pelvis Wo Con In Process Unspecified. EDMS 09:59 Urine Culture Sent. ll1 09:59 Urine Culture Sent. ll1 11:[address] Hemphill. bd 17:[address] Delgadillo, left message. bd 18:[address] Delgadillo, was sending dr Hemphill the call, Dr Delgadillo hung up. bd 20:48 Called transfer to get an update, spoke with Mia, stated they are still waiting for a wm room. Dr. Delgado spoke with Dr. Delgadillo at same time and stated if we do not get bed placement by B[facility] with in 15 mins that he will come in to do emergency surgery. 20:59 Chelsey Hernandez MD is Hospitalizing Provider. rn 21:30 No provider procedures requiring assistance completed. Patient admitted, IV remains in eh3 place. 22:29 Let transfer center know to cancel bed placement, spoke with Mia. wm Administered Medications: 07:54 Drug: GI Cocktail with - (Phenobarbital-Belladonna PO 10 ml, Maalox PO ll1 Suspension 30 ml, Lidocaine Mucous Membrane Liquid 2 % 20 ml) Route: PO; 11:51 Follow up: Response: No adverse reaction ll1 07:54 Drug: Ondansetron IVP 4 mg Route: IVP; Site: left antecubital; ll1 11:51 Follow up: Response: No adverse reaction ll1 08:04 Drug: Lactated Ringers Solution IV 500 ml Route: IV; Rate: 150 bolus; Site: left ll1 antecubital; 11:51 Follow up: IV Status: Completed infusion; IV Intake: 150ml ll1 10:15 Drug: Lactated Ringers Solution IV 500 ml Route: IV; Rate: 500 bolus; Site: left ll1 antecubital; 11:23 Follow up: IV Status: Completed infusion; IV Intake: 500ml ll1 10:16 Drug: Cefepime IVPB 1 grams Route: IVPB; Rate: 200 ml/hr; Infused Over: 30 mins; Site: ll1 left antecubital; 10:47 Follow up: Response: No adverse reaction; IV Status: Completed infusion; IV Intake: ll1 100ml 11:33 Drug: Norepinephrine IV 0.1 mcg/kg/min Route: IV; Rate: per protocol; Site: [address]; 21:50 Follow up: IV Status: Infusion continued upon admission; IV Intake: 270ml eh3 21:50 Drug: Cefepime IVPB 1 grams Route: IVPB; Rate: 200 ml/hr; Infused Over: 30 mins; Site: [address]; 21:50 Follow up: Response: Medication administered at discharge.; IV Status: Infusion eh3 continued upon admission 21:50 Follow up: Response: No adverse reaction; IV Status: Infusion continued upon admission; eh3 IV Intake: 2ml Medication: 07:26 VIS not applicable for this client. ll1 Intake: 10:47 IV: 100ml; Total: 100ml. ll1 11:23 IV: 500ml; Total: 600ml. ll1 11:51 IV: 150ml; Total: 750ml. ll1 21:50 IV: 270ml; Total: 1020ml. eh3 21:50 IV: 2ml; Total: 1022ml. eh3 Output: 14:00 Urine: 1000ml; Total: 1000ml. ll1 17:24 Urine: 900ml (Voided); Total: 1900ml. ll1 20:45 Urine: 300ml (Voided); Total: 2200ml. eh3 Outcome: 11:03 ER care complete, transfer ordered by . 11 21:00 Decision to Hospitalize by Provider. rn 21:50 Admitted to OR accompanied by nurse, via stretcher, with oxygen, on monitor, with 3 chart, Report called to Merlyn 21:50 Condition: stable 21:50 Instructed on the need for admit. 21:51 Patient left the ED. 3 Signatures: Dispatcher [employer] Reta Hoyos Edna es Nieto, Roman, MD MD rn Smirch, Shelby, RN RN ss Lewis, Lynsay, RN RN Anne Kerr Jose, MD MD [id number] Samantha Spaulding RN RN 3 Dalila Burden RN RN aa9 Ml Faye RN RN [id number] Corrections: (The following items were deleted from the chart) 07:18 07:17 BP 118 / 59; Pulse 118bpm; Resp 22bpm; Spontaneous; Pulse Ox 97% 3 lpm Nasal aa9 Cannula; Temp 98.9F Oral; 104.33 kg Reported; Height 5 ft. 5 in. Reported; BMI: 38.2; aa9 12:20 12:[address] Hemphill bd 18:28 17:01 BP 132 / 80; Pulse 92bpm; Resp 24bpm; Pulse Ox 94% 3 lpm Nasal Cannula; ll1 ll1 18:59 18:25 Reassessment: No changes from previously documented assessment. Patient and/or ll1 family updated on plan of care and expected duration. Pain level reassessed. Patient is alert, oriented x 3, equal unlabored respirations, skin warm/dry/pink. ll1 22:18 19:30 BP 104 / 59; Pulse 90bpm; Resp 18bpm; Pulse Ox 97% RA; eh3 eh3
[2023-01-30] MEDS ORDERED: NOREPINEPHRINE BITARTRATE/D5W 4 MG/250 ML BAG IV ONE ×2 (11:30→20:42)
--- NOTE | 2023-01-30 21:23 | P.HP ---
Certification for Inpatient Patient admitted to: Inpatient With expected LOS: >2 Midnights Patient will require the following post-hospital care: None Practitioner: I am a practitioner with admitting privileges, knowledge of patient current condition, hospital course, and medical plan of care. Services: Services provided to patient in accordance with Admission requirements found in Title 42 Section 412.3 of the Code of Federal Regulations Patient History Date of Service: 01/31/23 Reason for admission: Obstructing Nephrolithiasis History of Present Illness: Patient is a 67-year-old female with past medical history of COPD, hypertension, and hyperlipidemia who presented to the emergency department with a 2-week history of dysuria associated with left flank pain along with periumbilical pain. This has been associated with nausea, vomiting, fever and chills. Her labs are significant for WBC 17.7, hemoglobin 12.7, platelets 206, creatinine 1.15, lactate 2.7 that declined to 2.1 after fluid resuscitation, UA positive nitrites and leukocyte esterase. CT chest abdomen and pelvis without contrast showed" Moderate to severe left hydronephrosis with 1 cm obstructing proximal ureteral calculus with mild perinephric stranding and exophytic 5.7 cm suspected cystic lesion." call box [facility] urology was contacted who recommended transfer for IR percutaneous nephrostomy tube placement, but despite acceptance from [facility] urologist & ICU heel boom operator, transfer was delayed for over 12 hours pending bed availability. As a result, to avoid further decompensation, Dr Upton'melonie decided to keep patient here and take her to OR for cystoscopy with left retrograde pyelography and ureteral stent placement. She is admitted to the ICU following. Allergies aspirin Allergy (Verified 12/16/17 20:13) Anaphylaxis iodine Allergy (Verified 12/16/17 20:13) Unknown Iodinated Contrast Media [Iodinated Contrast Media - IV Dye] Adverse Reaction (Verified 12/16/17 20:13) Shortness of breath Sulfa (Sulfonamide Antibiotics) Adverse Reaction (Verified 12/16/17 20:13) Hives/Rash Home medications list reviewed: Yes Home Medications: Albuterol Sulfate [Proventil Hfa] 2 puff PO QIDP PRN 12/16/17 Cetirizine HCl [Zyrtec] 1 tab PO DAILY 12/16/17 Duloxetine HCl 1 cap PO DAILY 12/16/17 Fluoxetine HCl [Prozac*] 1 tab PO DAILY 12/16/17 Fluticasone [Flonase 50MCG Nasal [place]*] 2 sprays NS DAILY 12/16/17 Gabapentin [Neurontin*] 1 cap PO TID 12/16/17 Omeprazole [Prilosec] 40 mg PO DAILY 12/16/17 Umeclidinium Brm/Vilanterol Tr [Anoro Ellipta 62.5-25 Mcg INH] 1 puff PO DAILY 12/16/17 Zolpidem Tartrate [Zolpidem Tartrate ER] 1 tab PO BEDTIME 12/16/17 Oseltamivir [Tamiflu*] 75 mg PO BID #6 cap 12/19/17 predniSONE [Prednisone*] 10 mg PO BID #10 tab 12/19/17 - Past Medical/Surgical History Diabetic: No -: COPD -: Hypertension -: GERD -: Hyperlipidemia -: Tobacco abuse -: Insomnia -: Depression with anxiety -: Obstructive sleep apnea -: Gastric sleeve -: Cholecystectomy Psychosocial/ Personal History: She is a , has 3 children, she lives at home by herself. She is currently disabled. - Family History Mother -: Cancer Father -: Cancer Brother -: Cancer - Social History Smoking Status: Current every day smoker Alcohol use: No CD- Drugs: No Caffeine use: Yes Place of Residence: Home Review of Systems General: Fever, Chills Gastrointestinal: Nausea, Vomiting Genitourinary: Dysuria, Frequency, Other (Flank Pain) Physical Examination - Vital Signs Temperature: 98.9 F Blood Pressure: 118/59 Pulse: 22 Respirations: 22 Pulse Ox (%): 93 (3L NC) - Physical Exam General: Alert, In no apparent distress HEENT: Atraumatic, EOMI, Sclerae nonicteric Neck: Supple, 2+ carotid pulse no bruit Respiratory: Clear to auscultation bilaterally, Normal air movement Cardiovascular: Regular rate/rhythm, Normal S1 S2 Gastrointestinal: Normal bowel sounds, No tenderness Musculoskeletal: No tenderness Integumentary: No rashes Neurological: Normal speech, Normal affect - Studies Laboratory Data (last 24 hrs) 01/30/23 07:20: Sodium 142, Potassium 2.8 L, BUN 13, Creatinine 1.15 H, Glucose 111 H, Total Bilirubin 0.6, AST 23, ALT 20, Alkaline Phosphatase 101, Lipase 24 01/30/23 07:20: WBC 17.70 H, Hgb 12.7, Hct 40.1, Plt Count 206 01/30/23 07:18: Sodium Cancelled, Potassium Cancelled, BUN Cancelled, Creatinine Cancelled, Glucose Cancelled, Total Bilirubin Cancelled, AST Cancelled, ALT Cancelled, Alkaline Phosphatase Cancelled, Lipase Cancelled 01/30/23 07:18: WBC Cancelled, Hgb Cancelled, Hct Cancelled, Plt Count Cancelled Assessment and Plan - Problems (Diagnosis) (1) Sepsis Current Visit: Yes Status: Acute Qualifiers: Sepsis type: sepsis due to unspecified organism Sepsis acute organ dysfunction status: with acute organ dysfunction Severe sepsis acute organ dysfunction type: unspecified Severe sepsis shock status: with septic shock Qualified Code(s): A41.9 - Sepsis, unspecified organism; R65.21 - Severe sepsis with septic shock (2) Nephrolithiasis Current Visit: Yes Status: Acute (3) Hydronephrosis Current Visit: Yes Status: Acute Qualifiers: Hydronephrosis type: with ureteral calculous obstruction Qualified Code(s): N13.2 - Hydronephrosis with renal and ureteral calculous obstruction (4) COPD (chronic obstructive pulmonary disease) Current Visit: Yes Status: Chronic Qualifiers: COPD type: unspecified COPD Qualified Code(s): J44.9 - Chronic obstructive pulmonary disease, unspecified (5) Hyperlipidemia Current Visit: Yes Status: Chronic Qualifiers: Hyperlipidemia type: unspecified Qualified Code(s): E78.5 - Hyperlipidemia, unspecified (6) Hypertension Current Visit: Yes Status: Chronic Qualifiers: Hypertension type: primary hypertension Qualified Code(s): I10 - Essential (primary) hypertension (7) Obstructive sleep apnea Current Visit: Yes Status: Chronic - Plan Septic shock secondary to obstructive pyelonephritis & left ureterolithiasis s/p cystoscopy with left retrograde pyelography and ureteral stent placement Continue cefepime. Blood and urine cultures obtained. ID consulted. The patient has been hypotensive and tachycardic despite fluid resuscitation and is requiring Levophed drip Dunn catheter in place. To be removed when patient's clinical status improves. Sepsis reassessment completed at 1900 on 01/30 by ED physician. COPD / daily tobacco abuse Currently requiring 3L NC post op Titrate and wean as tolerated Tobacco cessation counseling. Nicotine patch provided Hypertension Hold all antihypertensives given hypotension Hyperlipidemia Continue home medications Monitor and replete electrolytes per protocol. Potassium is low at 2.8. Lovenox for VTE prophylaxis Full code Discharge Plan: Home Plan to discharge in: Greater than 2 days - Advance Directives Does patient have a Living Will: No Does patient have a Durable POA for Healthcare: No - Code Status/Comfort Care Code Status Assessed: Yes Code Status: Full Code Physician Review: Patient Assessed, Agree with Above Assessment and Plan Critical Care: No Time Spent Managing Pts Care (In Minutes): 50
[2023-01-30] MEDS ORDERED: ONDANSETRON 4 MG/2 ML VIAL IV PRN (21:33)
[2023-01-30] MEDS ORDERED: NOREPINEPHRINE 4 MG in D5W 250 ML IV SCH (22:00)
--- NOTE | 2023-01-30 22:03 | P.CNS ---
Date of Consult: 01/30/23 Reason for Consult: Obstructing stone and septic shock Chief Complaint: Obstructing Nephrolithiasis History of Present Illness: 67-year-old woman with COPD, hypertension, hyperlipidemia who presents with a 2- week history of dysuria associated with left flank pain along with periumbilical pain. This has been associated with some nausea vomiting as well as some fever and chills, and she finally sought emergency department evaluation with the pain became more than she can tolerate. Past medical history as above Past surgical history cholecystectomy Allergies to iodine and sulfa as well as aspirin Examination: Patient awake but somewhat confused appearing and oriented to person and place in moderate distress No dyspnea or respiratory distress at rest Pulse tachycardic but regular Abdomen soft nontender Mild CVA tenderness on the left Ambulatory with some mild instability White count 17.7, hemoglobin 12.7, platelets 206, creatinine 1.15, lactate 2.7 that declined to 2.1 after fluid resuscitation, UA positive nitrites and leukocyte esterase CT chest abdomen and pelvis without contrast: Impression: Moderate to severe left hydronephrosis with 1 cm obstructing proximal ureteral calculus with mild perinephric stranding and exophytic 5.7 cm suspected cystic lesion. Assessment and recommendation: 67-year-old woman with COPD, hypertension and hyperlipidemia with left obstructive pyelonephritis with septic shock. -The patient has been hypotensive and tachycardic despite fluid resuscitation and has been maintained on a Levophed drip at 0.05 mcg/kg/min with a blood pressure now 125/71 -Originally this morning she was strongly recommended for transfer for IR percutaneous nephrostomy tube placement, but despite consultation with [facility] urologist, Dr. Thompson, and the ICU agronomy manager, who both excepted the patient, transfer has yet to be arranged now over 12 hours later. As a result, to avoid further decompensation, I recommended attempt at the following: -Cystoscopy with left retrograde pyelography and ureteral stent placement. If unsuccessful, the patient will then necessitate left percutaneous nephrostomy tube as originally recommended. -I counseled the patient on the procedure in detail and explained the presence of the stent is a foreign body and subsequent need for definitive management of the stone. I counseled her to ensure to follow-up so that we may manage the stone intervally and remove the stent. Since she does have a baseline level of confusion, which it is uncertain related to her current medical condition versus baseline mental status, communication eventually will need to be held with a relative who has a greater degree of potential competence. -Consent obtained -Patient transferred for operative management Allergies aspirin Allergy (Verified 12/16/17 20:13) Anaphylaxis iodine Allergy (Verified 12/16/17 20:13) Unknown Iodinated Contrast Media [Iodinated Contrast Media - IV Dye] Adverse Reaction (Verified 12/16/17 20:13) Shortness of breath Sulfa (Sulfonamide Antibiotics) Adverse Reaction (Verified 12/16/17 20:13) Hives/Rash Home medications list reviewed: Yes Home Medications: Albuterol Sulfate [Proventil Hfa] 2 puff PO QIDP PRN 12/16/17 Cetirizine HCl [Zyrtec] 1 tab PO DAILY 12/16/17 Duloxetine HCl 1 cap PO DAILY 12/16/17 Fluoxetine HCl [Prozac*] 1 tab PO DAILY 12/16/17 Fluticasone [Flonase 50MCG Nasal [place]*] 2 sprays NS DAILY 12/16/17 Gabapentin [Neurontin*] 1 cap PO TID 12/16/17 Omeprazole [Prilosec] 40 mg PO DAILY 12/16/17 Umeclidinium Brm/Vilanterol Tr [Anoro Ellipta 62.5-25 Mcg INH] 1 puff PO DAILY 12/16/17 Zolpidem Tartrate [Zolpidem Tartrate ER] 1 tab PO BEDTIME 12/16/17 Oseltamivir [Tamiflu*] 75 mg PO BID #6 cap 12/19/17 predniSONE [Prednisone*] 10 mg PO BID #10 tab 12/19/17 - Past Medical/Surgical History Diabetic: No -: COPD -: Hypertension -: GERD -: Hyperlipidemia -: Tobacco abuse -: Insomnia -: Depression with anxiety -: Obstructive sleep apnea -: Gastric sleeve -: Cholecystectomy Psychosocial/ Personal History: She is a , has 3 children, she lives at home by herself. She is currently disabled. - Family History Mother Medical History: Cancer Father Medical History: Cancer Brother Medical History: Cancer - Social History Smoking Status: Current every day smoker Alcohol use: No CD- Drugs: No Caffeine use: Yes Place of Residence: Home Physical Examination Laboratory Data (last 24 hrs) 01/30/23 07:20: Sodium 142, Potassium 2.8 L, BUN 13, Creatinine 1.15 H, Glucose 111 H, Total Bilirubin 0.6, AST 23, ALT 20, Alkaline Phosphatase 101, Lipase 24 01/30/23 07:20: WBC 17.70 H, Hgb 12.7, Hct 40.1, Plt Count 206 01/30/23 07:18: Sodium Cancelled, Potassium Cancelled, BUN Cancelled, Creatinine Cancelled, Glucose Cancelled, Total Bilirubin Cancelled, AST Cancelled, ALT Cancelled, Alkaline Phosphatase Cancelled, Lipase Cancelled 01/30/23 07:18: WBC Cancelled, Hgb Cancelled, Hct Cancelled, Plt Count Cancelled - Problems (1) Obstructive pyelonephritis Current Visit: Yes Status: Acute (2) Septic shock Current Visit: Yes Status: Acute (3) Ureterolithiasis Current Visit: Yes Status: Acute Conclusions/Impression: see HPI above Time Spent Managing Pts care (In Minutes): 65
[2023-01-30] MEDS ORDERED: NA CIT/CITRIC AC 30 ML ORAL UDC ONE (22:17)
[2023-01-30] MEDS ORDERED: SUCCINYLCHOLINE 20 MG/ML (10 ML) IV ONE ×2 (22:23)
[2023-01-30] MEDS ORDERED: KCL 20 MEQ/100 mL IVPB 20 MEQ/100 ML BAG IV SCH (23:00)
--- NOTE | 2023-01-30 23:20 | P.OP ---
Preoperative diagnosis: Obstructive pyelonephritis, ureterolithiasis left, septic shock Postoperative diagnosis: Same Primary procedure: Cystoscopy with left retrograde pyelography Secondary procedure: Left ureteral stent placement Anesthesia: GETA Estimated blood loss: Negligible Findings: Mild left hydronephrosis with radiolucent calculus Operative Technique: Indication for procedure: 67-year-old woman with COPD, hypertension and hyperlipidemia with left obstructive pyelonephritis due to 1 cm proximal ureterolithiasis with septic shock. Attempts to achieve timely transfer for left percutaneous nephrostomy tube placement were unsuccessful; so left ureteral stent placement was accommodated. Procedure note: The patient was consented in the preoperative holding area before being transferred to the operative suite where general anesthesia was induced. I spoke to her daughter, who also understood the indication for the procedure and agreed. She was placed in the lithotomy position, padded and secured to the table appropriately. Her genitalia was prepped with Hibiclens and she was draped in standard fashion. The case was begun using a 22 [place] rigid cystoscope to traverse the urethra and into the bladder. The bladder was decompressed of cloudy urine and refilled with sterile normal saline. I decompressed the bladder again to remove the bulk of the infectious urine within, before aiming a 5 [place] ureteral access catheter at the left ureteral orifice. The tip of a sensor wire was used to assist entry of the 5 [place] ureteral access catheter into the distal ureteral orifice. A retrograde pyelogram was then performed just to identify the collecting system and ensure contrast passed beyond any obstructing stone. Left retrograde pyelography: Using a 70: 30 mixture of Omnipaque and saline, contrast was injected via the 5 [place] ureteral access catheter under live fluoroscopic imaging. I observed contrast go up the ureter and just enter the renal pelvis and calyces where no further contrast was injected in order to avoid any pyelovenous reflux given her iodine allergy. I then navigated a sensor wire via the 5 [place] ureteral access catheter and coiled it within the upper pole of the kidney as visible fluoroscopically. Over the sensor wire, the 5 [place] ureteral access catheter was removed, and a 6 [place] by 24 cm double-J ureteral stent was passed with ease into the upper pole of the kidney with a coil observed fluoroscopically and 1 cystoscopically formed in the bladder. I then placed an 18 [place] Dunn catheter into her bladder with ease with 10 cc of normal saline in the balloon to expedite drainage of her collecting system. She was then taken out of the lithotomy position, awakened from general anesthesia, transferred to a stretcher, and then transferred to the recovery room in good condition. Complications: None Discharge disposition: She will be admitted to the ICU for management of her sepsis and septic shock. She will be continued on cefepime antimicrobial therapy and weaned off IV pressor therapy as appropriate. Continued fluid resuscitation recommended judiciously relative to her history of COPD. After an adequate course of antimicrobial therapy targeting any infection identified on cultures taken preoperatively, at least 14 days of therapy, we may then proceed with definitive management of her ureterolithiasis. The patient was counseled that stent is a foreign body and must be removed. Her daughter was similarly counseled on the need for definitive surgical management of the stone and removal of the stent within 6 months maximum. Complications: None Drain(s): Urinary catheter, Other (6Fr x 24cm JJ ureteral stent on the left) Transferred to: Recovery Room Condition: Fair
[2023-01-30] MEDS ORDERED: ALBUTEROL 2.5 MG/3 ML NEB SOL ONE (23:22)
[2023-01-30] MEDS: HALOPERIDOL LACT 5 MG/ML INJ ONE (23:46)
[2023-01-31] MEDS: HALOPERIDOL LACT 5 MG/ML INJ ONE (00:11)
[2023-01-31] MEDS ORDERED: LORazepam 2 MG/ML VIAL IV PRN (00:29)
[2023-01-31] MEDS: NOREPINEPHRINE BITARTRATE/D5W 4 MG/250 ML BAG IV SCH ×2 (00:40→05:15)
[2023-01-31 03:22] VITALS: BMI 44.9
[2023-01-31] MEDS ORDERED: NOREPINEPHRINE BITARTRATE/D5W 4 MG/250 ML BAG IV ONE (05:08)
[2023-01-31 06:16] LABS: Absolute Lymphocytes (CBC) 3.1 K/uL (0.7-4.9); Hematocrit 36.4 % (36.0-45.0); Lymphocytes % 8.8 % (15.3-44.8); MCV 75.6 fL (80-100); MPV 9.4 fL (7.6-11.3); RBC Red Blood Cell Count 4.82 M/uL (3.86-4.86)
[2023-01-31 06:29] LABS: Magnesium 1.5 mg/dL (1.6-2.4); Phosphorus 1.7 mg/dL (2.5-4.9); Potassium 3.4 mEq/L (3.5-5.1)
[2023-01-31] MEDS ORDERED: PHENAZOPYRIDINE 100MG TAB PO PRN (06:31)
[2023-01-31] MEDS ORDERED: NA CHLORIDE 0.9% 500 ML IV ONE ×2 (06:32→16:00)
[2023-01-31] MEDS: NA CHLORIDE 0.9% 1,000 ML IV SCH ×2 (07:23→15:55)
[2023-01-31] MEDS: ENOXAPARIN 40 MG/0.4 ML SQ SCH (08:01)
[2023-01-31] MEDS: CEFEPIME 1 GM in NA CHLORIDE 0.9% 100 ML IV SCH ×2 (08:01→22:04)
[2023-01-31] MEDS: Mupirocin NASAL 2 APPL/1 GM TUBE NAS SCH ×2 (08:04→21:55)
[2023-01-31 08:47] LABS: Blood Morphology Comment NOT SEEN (NOT SEEN); Platelet Estimate ADEQ
--- NOTE | 2023-01-31 11:58 | RAD REPORT ---
EXAM DESCRIPTION: RAD - Cystography - 01/31/2023 11:30 am CLINICAL HISTORY: Cysto COMPARISON: No comparisons FINDINGS: Total fluoro time: 0.05 minutes
--- NOTE | 2023-01-31 12:06 | P.CNS ---
Date of Consult: 01/31/23 Patient is a 67 yo female with a PMH of COPD, HTN, HLD, GERD, obstructive sleep apnea. Patient admitted with obstructing nephrolithiais on 01/30. underwent utereral stent placement 01/30. Patient is pleasant, sitting in chair at bedside, no acute distress, alert and oriented. - Date of Service Date of Service: 01/31/23 - Chief Complaint Reason for admission: Obstructing Nephrolithiasis - Allergies Allergies/Reactions: Allergy/AdvReac Type Severity Reaction Status Date / Time aspirin Allergy Anaphylaxis Verified 12/16/17 20:13 iodine Allergy Unknown Verified 12/16/17 20:13 Iodinated Contrast Media AdvReac Shortness Verified 12/16/17 20:13 [Iodinated Contrast Media - of breath IV Dye] Sulfa (Sulfonamide AdvReac Hives/Rash Verified 12/16/17 20:13 Antibiotics) - Home Medications Medication Instructions Recorded Albuterol Sulfate [Proventil Hfa] 2 puff PO Q6H PRN 12/16/17 Fluoxetine HCl [Prozac*] 40 mg PO DAILY 12/16/17 Gabapentin [Neurontin*] 300 mg PO BEDTIME 12/16/17 Omeprazole [Prilosec] 40 mg PO DAILY 12/16/17 Zolpidem Tartrate [Zolpidem 10 mg PO BEDTIME 12/16/17 Tartrate ER] Atorvastatin Calcium [Lipitor*] 40 mg PO DAILY 01/31/23 Doxycycline [Vibramycin IV*] 100 mg PO BID 01/31/23 Hydrocodone Bit/Acetaminophen 10 - 325 mg PO Q6H PRN 01/31/23 [[place] 10-325 Tablet] Semaglutide [Ozempic] 2 mg SQ Q7D 01/31/23 Tizanidine [Zanaflex*] 4 mg PO BEDTIME 01/31/23 clonazePAM [Clonazepam] 1 mg PO DAILY 01/31/23 clonazePAM [Clonazepam] 2 mg PO BEDTIME 01/31/23 predniSONE [Prednisone*] 5 mg PO DAILY 01/31/23 - Review of Systems General: Fever Respiratory: As per HPI Cardiovascular: As per HPI Gastrointestinal: No Distention Genitourinary: Hematuria - Past Medical History -: COPD -: Hypertension -: GERD -: Hyperlipidemia -: Tobacco abuse -: Insomnia -: Depression with anxiety -: Obstructive sleep apnea Diabetic: No - Past Surgical History -: Gastric sleeve -: Cholecystectomy - Other History Psychosocial/ Personal History: She is a , has 3 children, she lives at home by herself. She is currently disabled. - Family History Mother -: Cancer Father -: Cancer Brother -: Cancer - Social History Smoking Status: Former smoker Alcohol use: No CD- Drugs: No Caffeine use: Yes Place of Residence: Home - Physical Examination Weight: 270 lb Height: 5 ft 5 in Vital Signs: Temp Pulse Resp BP Pulse Ox 98.4 F 107 H 16 99/59 L 97 01/31/23 08:00 01/31/23 10:00 01/31/23 10:00 01/31/23 10:00 01/31/23 10:00 General: Awake, alert, oriented, not in distress HEENT: Head atraumatic, normocephalic, Sclerae white Chest: Unremarkable Lungs: Other (diminished breath sounds bilaterally) Heart: Normal heart sounds Abdomen: Soft, No guarding, rigidity, tenderness or mass noted Extremities: No leg edema Skin: No rash, ulcer or cellulitis Lymphatics: No lymph node enlargement in neck Neurological: No focal neurological deficit External Genitalia: Deferred Rectal: Deferred - Studies Laboratory Last Values WBC 17.70 thou/uL (4.3-10.9) H 01/30/23 07:20 RBC 5.28 M/uL (3.86-4.86) H 01/30/23 07:20 Hgb 12.7 g/dL (12.0-15.0) 01/30/23 07:20 Hct 40.1 % (36.0-45.0) 01/30/23 07:20 MCV 75.9 fL (80-100) L 01/30/23 07:20 MCH 24.1 pg (27.0-35.0) L 01/30/23 07:20 MCHC 31.7 g/dL (32.0-36.0) L 01/30/23 07:20 RDW 16.2 % (12.1-15.2) H 01/30/23 07:20 Plt Count 206 thou/uL (152-406) 01/30/23 07:20 MPV 9.5 fL (7.6-11.3) 01/30/23 07:20 Neutrophils % 95.5 % (41.7-73.7) H 01/30/23 07:20 Lymphocytes % 2.7 % (15.3-44.8) L 01/30/23 07:20 Monocytes % 1.5 % (3.3-12.3) L 01/30/23 07:20 Eosinophils % 0.0 % (0-4.4) 01/30/23 07:20 Basophils % 0.3 % (0-1.3) 01/30/23 07:20 Absolute Neutrophils 16.9 K/uL (1.8-8.0) H 01/30/23 07:20 Absolute Lymphocytes 0.5 K/uL (0.7-4.9) L 01/30/23 07:20 Absolute Monocytes 0.3 K/uL (0.1-1.3) 01/30/23 07:20 Absolute Eosinophils 0.0 K/uL (0-0.5) 01/30/23 07:20 Absolute Basophils 0.0 K/uL (0-0.5) 01/30/23 07:20 Diff Path Review Cancelled 01/30/23 07:18 Sodium 142 mEq/L (136-145) 01/30/23 07:20 Potassium 2.8 mEq/L (3.5-5.1) L 01/30/23 07:20 Chloride 110 mEq/L (98-107) H 01/30/23 07:20 Carbon Dioxide 25 mEq/L (21-32) 01/30/23 07:20 Anion Gap 9.8 mEq/L (5.0-15.0) 01/30/23 07:20 BUN 13 mg/dL (7-18) 01/30/23 07:20 Creatinine 1.15 mg/dL (0.55-1.02) H 01/30/23 07:20 Est GFR (CKD-EPI) 52 ml/min (=/>90) L 01/30/23 07:20 Glucose 111 mg/dL (74-106) H 01/30/23 07:20 Lactic Acid 2.1 mmol/L (0.4-2.0) H* 01/30/23 11:20 Calcium 8.7 mg/dL (8.5-10.1) 01/30/23 07:20 Total Bilirubin 0.6 mg/dL (0.2-1.0) 01/30/23 07:20 AST 23 U/L (15-37) 01/30/23 07:20 ALT 20 U/L (13-56) 01/30/23 07:20 Alkaline Phosphatase 101 U/L (45-117) 01/30/23 07:20 Serum Total Protein 6.8 g/dL (6.4-8.2) 01/30/23 07:20 Albumin 2.9 g/dL (3.4-5.0) L 01/30/23 07:20 Globulin 3.9 g/dL (2.3-3.5) H 01/30/23 07:20 Albumin/Globulin Ratio 0.7 (1.1-1.8) L 01/30/23 07:20 Lipase 24 U/L (13-75) 01/30/23 07:20 Urine Color Yellow (Yellow) 01/30/23 08:40 Urine Clarity Turbid (Clear) H 01/30/23 08:40 Urine pH 5.5 (5.0-7.0) 01/30/23 08:40 Ur Specific [place] 1.014 (1.005-1.030) 01/30/23 08:40 Glucose (UA)(Auto) Negative (Negative) 01/30/23 08:40 Urine Ketones Negative (Negative) 01/30/23 08:40 Urine Blood 2+ (Negative) H 01/30/23 08:40 Urine Nitrite 1+ (Negative) H 01/30/23 08:40 Urine Bilirubin Negative (Negative) 01/30/23 08:40 Urine Urobilinogen Normal (Normal) 01/30/23 08:40 Ur Leukocyte Esterase 500 [place]/uL (Negative) H 01/30/23 08:40 Urine RBC 21-50 /HPF (None Seen) H 01/30/23 08:40 Urine WBC >50 /HPF (<5) H 01/30/23 08:40 Urine WBC Clumps Rare /HPF (None Seen) 01/30/23 08:40 Ur Squamous Epith Cells 5-10 /HPF (None Seen) 01/30/23 08:40 Urine Bacteria 20-50 /HPF (<20) H 01/30/23 08:40 Urine Mucus Slight /HPF (None Seen) 01/30/23 08:40 Urine Culture Reflexed Reflexed 01/30/23 08:40 Urine Total Protein 1+ (Negative) H 01/30/23 08:40 Influenza Type A RNA Negative (NEGATIVE) 01/30/23 08:00 RSV RNA (INAAT) Negative (NEGATIVE) 01/30/23 08:00 Influenza Type B RNA Negative (NEGATIVE) 01/30/23 08:00 SARS-CoV-2 RNA (RT-PCR) Negative (NEGATIVE) 01/30/23 08:00 Microbiology Data (last 24 hrs): 01/30/23 08:40 Clean Catch Urine [place] Count - Preliminary >100,000 CFU/ML. 01/30/23 08:40 Clean Catch Urine - Preliminary Gram Neg Tom Imagings Data: Reviewed - Assessment and Plan All Active Problems Hydronephrosis (Acute) Nephrolithiasis (Acute) Obstructive pyelonephritis (Acute) Leukocytosis Sepsis (Acute) Septic shock (Acute) Ureterolithiasis (Acute) COPD (chronic obstructive pulmonary disease) (Chronic) Hyperlipidemia (Chronic) Hypertension (Chronic) Obstructive sleep apnea (Chronic) COPD exacerbation (Acute) Hypomagnesemia (Acute 09/02/16) Hypoxemia (Acute 12/17/17) Influenza (Acute 12/17/17) Shortness of breath (Acute 09/02/16) Depression with anxiety (Chronic 09/02/16) GERD (gastroesophageal reflux disease) (Chronic 09/02/16) Insomnia (Chronic 09/02/16) Seasonal allergies (Chronic) PLAN Sepsis / obstructive pyelonephritis - 01/30 urine cultures pending gram stain: gram negative rods - Continue cefepime until urine culture results identify organism - Add meropenem IV 1g Q8H - continue to monitor WBC and fever trends Case discussed with Edith Saxena. - Physician Review Physician Review: Patient Assessed, Agree with Above Assessment and Plan
[2023-01-31] MEDS ORDERED: Meropenem 1,000 MG in NA CHLORIDE 0.9% 100 ML IV SCH (13:00)
[2023-01-31] MEDS: FENTANYL CITR 100 MCG/2 ML IV PRN (13:51)
--- NOTE | 2023-01-31 15:33 | P.PN ---
Subjective Date of Service: 01/31/23 Patient chart was reviewed. Events of the last 12 hours were noted prior to admission. Patient septic shock secondary to pyelonephritis. Patient with obstructive uropathy as well. Patient was started on IV fluids and IV antibiotics. Patient's status post cystoscopy. Continue with antibiotic therapy. Currently on Levophed and will continue the hydrate and wean off of Levophed. Patient will be admitted for inpatient hospitalization. Review of Systems 10-point ROS is otherwise unremarkable Physical Examination - Vital Signs Temperature: 97.3 F Blood Pressure: 121/81 Pulse: 104 Respirations: 20 Pulse Ox (%): 91 - Physical Exam General: Alert, In no apparent distress, Oriented x3 Respiratory: Clear to auscultation bilaterally, Normal air movement Cardiovascular: Regular rate/rhythm, Normal S1 S2, No murmurs Gastrointestinal: Normal bowel sounds, Soft and benign, Non-distended, No tenderness Musculoskeletal: No clubbing, No swelling, No tenderness Neurological: Sensation intact, Cranial nerves 3-12 intact - Studies Medications List Reviewed: Yes Assessment & Plan - Problems (Diagnosis) (1) Septic shock Current Visit: Yes Status: Acute (2) Hydronephrosis Current Visit: Yes Status: Acute Qualifiers: Hydronephrosis type: with ureteral calculous obstruction Qualified Code(s): N13.2 - Hydronephrosis with renal and ureteral calculous obstruction (3) Nephrolithiasis Current Visit: Yes Status: Acute (4) Obstructive pyelonephritis Current Visit: Yes Status: Acute (5) COPD (chronic obstructive pulmonary disease) Current Visit: Yes Status: Chronic Qualifiers: COPD type: unspecified COPD Qualified Code(s): J44.9 - Chronic obstructive pulmonary disease, unspecified (6) Hyperlipidemia Current Visit: Yes Status: Chronic Qualifiers: Hyperlipidemia type: unspecified Qualified Code(s): E78.5 - Hyperlipidemia, unspecified (7) Hypertension Current Visit: Yes Status: Chronic Qualifiers: Hypertension type: primary hypertension Qualified Code(s): I10 - Essential (primary) hypertension - Plan Plan: 1. Continue with IV hydration 2. Levophed drip 3. IV antibiotics 4. Waiting for urine cultures 5. Strict blood sugar control 6. Monitor renal function 7. Monitor white blood cell count 8. GI and DVT prophylaxis Discharge Plan: Home Plan to discharge in: Greater than 2 days - Advance Directives Does patient have a Living Will: No Does patient have a Durable POA for Healthcare: No - Code Status/Comfort Care Code Status: Full Code Physician Review: Patient Assessed, Agree with Above Assessment and Plan Critical Care: No Time Spent Managing PTS Care (In Minutes): 35
[2023-01-31] MEDS ORDERED: ACETAMINOPHEN 500 MG TAB PO ONE (16:00)
[2023-01-31 16:27] LABS: Absolute Lymphocytes (CBC) 2.3 K/uL (0.7-4.9); Hematocrit 33.4 % (36.0-45.0); Lymphocytes % 9.2 % (15.3-44.8); MCV 75.4 fL (80-100); MPV 9.6 fL (7.6-11.3); RBC Red Blood Cell Count 4.43 M/uL (3.86-4.86)
[2023-01-31 16:50] LABS: Potassium 3.4 mEq/L (3.5-5.1)
[2023-01-31 17:37] LABS: Blood Morphology Comment NOT SEEN (NOT SEEN); Platelet Estimate ADEQ; White Blood Cell Scan OK (OK)
[2023-01-31] MEDS ORDERED: POTASSIUM PHOS IN 0.9 % NACL 15 MMOL/250 ML BAG IV ONE (17:45)
[2023-01-31] MEDS ORDERED: Magnesium Sulfate 2gm IVPB 2 G/50 ML BAG IV ONE (18:00)
--- NOTE | 2023-02-01 01:14 | RAD REPORT ---
EXAM DESCRIPTION: XR Chest, 1 View CLINICAL HISTORY: The patient is 67 years old and is Female; possible aspiration TECHNIQUE: Frontal view of the chest. COMPARISON: No relevant prior studies available. FINDINGS: Lungs: Prominent interstitial markings which may indicate interstitial edema. Hazy opacification of the left lung base. Pleural space: Unremarkable. No pneumothorax. Heart: Unremarkable. Mediastinum: Unremarkable. Bones/joints: Unremarkable. IMPRESSION: 1. Prominent interstitial markings which may indicate interstitial edema. 2. Hazy opacification of the left lung base. Electronically signed by: Lorenzo House MD 01/31/2023 12:11 AM CDT Due to temporary technical issues with the PACS/Fluency reporting system, reports are being signed by the in house radiologists without review as a courtesy to insure prompt reporting. The interpreting radiologist is fully responsible for the content of the report.
--- NOTE | 2023-02-01 01:49 | RAD REPORT ---
EXAM DESCRIPTION: XR Chest, 1 View CLINICAL HISTORY: The patient is 67 years old and is Female; s/p picc insertion TECHNIQUE: Frontal view of the chest. COMPARISON: Chest radiograph January 30, 2023 FINDINGS: LUNGS: Unremarkable. No consolidation. PLEURAL SPACE: Unremarkable. No pneumothorax. HEART: Unremarkable. No cardiomegaly. MEDIASTINUM: Unremarkable. BONES/JOINTS: Unremarkable. TUBES, LINES AND DEVICES: A right upper extremity PICC is present with the tip at superior aspec t of the SVC. UPPER ABDOMEN: Unremarkable as visualized. IMPRESSION: A right upper extremity PICC is present with the tip at superior aspect of the SVC. Electronically signed by: Amara Urrutia MD 01/31/2023 3:18 AM CDT Due to temporary technical issues with the PACS/Fluency reporting system, reports are being signed by the in house radiologists without review as a courtesy to insure prompt reporting. The interpreting radiologist is fully responsible for the content of the report.
[2023-02-01] MEDS: Meropenem 1,000 MG in NA CHLORIDE 0.9% 100 ML IV SCH ×3 (01:57→16:36)
[2023-02-01] MEDS: NA CHLORIDE 0.9% 1,000 ML IV SCH ×3 (03:00→13:00)
[2023-02-01 05:47] LABS: Magnesium 1.9 mg/dL (1.6-2.4); Potassium 3.4 mEq/L (3.5-5.1)
[2023-02-01 06:09] LABS: Hematocrit 30.6 % (36.0-45.0); Lymphocytes % 11.2 % (15.3-44.8); MCV 75.6 fL (80-100); MPV 9.7 fL (7.6-11.3); RBC Red Blood Cell Count 4.06 M/uL (3.86-4.86)
[2023-02-01] MEDS: Mupirocin NASAL 2 APPL/1 GM TUBE NAS SCH ×2 (09:00→20:52)
[2023-02-01] MEDS: ENOXAPARIN 40 MG/0.4 ML SQ SCH (09:09)
[2023-02-01] MEDS: CEFEPIME 1 GM in NA CHLORIDE 0.9% 100 ML IV SCH ×2 (09:09→20:43)
[2023-02-01] MEDS: FENTANYL CITR 100 MCG/2 ML IV PRN ×2 (09:10→12:46)
[2023-02-01] MEDS ORDERED: NA CHLORIDE 0.9% 500 ML IV ONE (11:27)
[2023-02-01] MEDS ORDERED: PANTOPRAZOLE 40MG TABLET PO ONE (14:07)
[2023-02-01] MEDS: PANTOPRAZOLE 40MG TABLET PO SCH (16:36)
--- NOTE | 2023-02-01 17:14 | RAD REPORT ---
EXAM DESCRIPTION: US - Renal Ultrasound-Complete - 02/01/2023 4:59 pm CLINICAL HISTORY: hydronephrosis COMPARISON: Chest Abd Pelvis Wo Con dated 01/30/2023 FINDINGS: Both kidneys are normal in size, shape and echotexture. The right kidney measures 11.8 cm. Simple left renal cyst. This measures 5.3 cm. The left kidney measures 11.7 cm. No hydronephrosis, focal mass or perinephric fluid. Decompressed bladder around a Dunn catheter. IMPRESSION: Resolved left-sided hydronephrosis. Left renal cyst. The right kidney is unremarkable.
[2023-02-01] MEDS: ACETAMINOPHEN 500 MG TAB PO PRN (18:39)
[2023-02-01] MEDS ORDERED: ACETAMINOPHEN 500 MG TAB ONE (18:43)
[2023-02-01] MEDS ORDERED: NA CHLORIDE 0.9% 0 ML ONE (20:09)
[2023-02-01] MEDS ORDERED: NA CHLORIDE 0.9% 100 ML ONE ×2 (20:33→23:55)
[2023-02-01] MEDS ORDERED: CEFEPIME 1 GM/VIAL ONE (20:37)
[2023-02-01] MEDS ORDERED: MELATONIN 5 MG TABLET PO PRN (23:07)
[2023-02-01 23:48] VITALS: O2SAT 92
[2023-02-02] MEDS ORDERED: CEFEPIME 1 GM/VIAL ONE
[2023-02-02] MEDS: NA CHLORIDE 0.9% 1,000 ML IV SCH ×2 (00:11→08:53)
[2023-02-02] MEDS: CEFEPIME 1 GM in NA CHLORIDE 0.9% 100 ML IV SCH ×2 (00:11→08:43)
[2023-02-02] MEDS: Meropenem 1,000 MG in NA CHLORIDE 0.9% 100 ML IV SCH ×2 (01:53→08:43)
[2023-02-02] MEDS ORDERED: NA CHLORIDE 0.9% 100 ML ONE (01:53)
[2023-02-02 04:54] LABS: Hematocrit 29.3 % (36.0-45.0); Lymphocytes % 15.5 % (15.3-44.8); MCV 75.1 fL (80-100); MPV 9.2 fL (7.6-11.3)
[2023-02-02 05:07] LABS: Magnesium 1.7 mg/dL (1.6-2.4); Potassium 3.2 mEq/L (3.5-5.1)
[2023-02-02 08:17] VITALS: BP 92/59; TEMP 97.7
[2023-02-02] MEDS: PANTOPRAZOLE 40MG TABLET PO SCH (08:42)
[2023-02-02] MEDS: ENOXAPARIN 40 MG/0.4 ML SQ SCH (08:43)
[2023-02-02] MEDS: Mupirocin NASAL 2 APPL/1 GM TUBE NAS SCH (08:53)
[2023-02-02] MEDS ORDERED: POTASSIUM CL SA 10 MEQ TAB PO ONE (09:00)
[2023-02-02] MEDS ORDERED: MAGNESIUM SULFATE 1 gm IVPB 1 GM/100 ML BAG IV ONE (09:00)
--- NOTE | 2023-02-02 09:12 | P.PN ---
Date of Service: 02/01/23 Subjective His clinical symptoms are continuing to improve. She is doing much better. She is hoping she can go home in the morning. Awaiting her culture results. Continue encouraging her to get out of bed and ambulate. Anticipate discharge over the next 24 to 48 hours. Physical Examination - Vital Signs Reviewed - Physical Exam General: Alert, In no apparent distress, Oriented x3 Respiratory: Clear to auscultation bilaterally, Normal air movement Cardiovascular: Regular rate/rhythm, Normal S1 S2, No murmurs Gastrointestinal: Normal bowel sounds, Soft and benign, Non-distended, No tenderness Musculoskeletal: No clubbing, No swelling, No tenderness Neurological: Sensation intact, Cranial nerves 3-12 intact - Studies Medications List Reviewed: Yes Assessment & Plan - Problems (Diagnosis) (1) Septic shock Current Visit: Yes Status: Acute (2) Hydronephrosis Current Visit: Yes Status: Acute Qualifiers: Hydronephrosis type: with ureteral calculous obstruction Qualified Code(s): N13.2 - Hydronephrosis with renal and ureteral calculous obstruction (3) Nephrolithiasis Current Visit: Yes Status: Acute (4) Obstructive pyelonephritis Current Visit: Yes Status: Acute (5) COPD (chronic obstructive pulmonary disease) Current Visit: Yes Status: Chronic Qualifiers: COPD type: unspecified COPD Qualified Code(s): J44.9 - Chronic obstructive pulmonary disease, unspecified (6) Hyperlipidemia Current Visit: Yes Status: Chronic Qualifiers: Hyperlipidemia type: unspecified Qualified Code(s): E78.5 - Hyperlipidemia, unspecified (7) Hypertension Current Visit: Yes Status: Chronic Qualifiers: Hypertension type: primary hypertension Qualified Code(s): I10 - Essential (primary) hypertension - Plan Continue with plan of care as mentioned below 1. Continue with IV hydration 2. Out of bed and ambulate 3. IV antibiotics 4. Waiting for urine cultures 5. Strict blood sugar control 6. Monitor renal function 7. Monitor white blood cell count 8. GI and DVT prophylaxis Discharge Plan: Home Plan to discharge in: Greater than 2 days - Advance Directives Does patient have a Living Will: No Does patient have a Durable POA for Healthcare: No - Code Status/Comfort Care Code Status: Full Code Physician Review: Patient Assessed, Agree with Above Assessment and Plan Critical Care: No Time Spent Managing PTS Care (In Minutes): 35
--- NOTE | 2023-02-02 09:17 | P.DS ---
Discharge Date: 02/02/23 Disposition: ROUTINE DISCHARGE Reason for Admission: Obstructing Nephrolithiasis - Problems (1) Septic shock Current Visit: Yes Status: Acute (2) Hydronephrosis Current Visit: Yes Status: Acute Qualifiers: Hydronephrosis type: with ureteral calculous obstruction Qualified Code(s): N13.2 - Hydronephrosis with renal and ureteral calculous obstruction (3) Nephrolithiasis Current Visit: Yes Status: Acute (4) Obstructive pyelonephritis Current Visit: Yes Status: Acute (5) COPD (chronic obstructive pulmonary disease) Current Visit: Yes Status: Chronic Qualifiers: COPD type: unspecified COPD Qualified Code(s): J44.9 - Chronic obstructive pulmonary disease, unspecified (6) Hyperlipidemia Current Visit: Yes Status: Chronic Qualifiers: Hyperlipidemia type: unspecified Qualified Code(s): E78.5 - Hyperlipidemia, unspecified (7) Hypertension Current Visit: Yes Status: Chronic Qualifiers: Hypertension type: primary hypertension Qualified Code(s): I10 - Essential (primary) hypertension Brief History of Present Illness: Patient is a 67-year-old female who came to the hospital with flank tenderness. She was seen in the emergency room and found to have obstructive uropathy with pyelonephritis. We did not have urology available so decision was made to transfer the patient. We had acceptance at [facility]. However, it had been many hours and patient's clinical condition was deteriorating so urology came and and proceeded with J stent placement in the operating room. Patient's doing better. We admitted her for IV antibiotics and IV fluids. She was initially on vasopressors but we have weaned them off. Hospital Course: Patient has done well during hospital stay. She is is tolerating diet. She is ambulating. Cultures have grown out E. coli which is sensitive to Levaquin. At this time patient is stable for discharge with oral Levaquin. Vital Signs/Physical Exam: Temp Pulse Resp BP Pulse Ox 97.7 F 88 16 92/59 L 90 L 02/02/23 08:00 02/02/23 08:00 02/02/23 08:00 02/02/23 08:00 02/02/23 08:00 General: Alert, In no apparent distress, Oriented x3 Laboratory Data at Discharge: WBC 6.70 thou/uL (4.3-10.9) 02/02/23 04:00 Hgb 9.8 g/dL (12.0-15.0) L 02/02/23 04:00 Hct 29.3 % (36.0-45.0) L 02/02/23 04:00 Plt Count 144 thou/uL (152-406) L 02/02/23 04:00 Sodium 140 mEq/L (136-145) 02/02/23 04:00 Potassium 3.2 mEq/L (3.5-5.1) L 02/02/23 04:00 BUN 10 mg/dL (7-18) 02/02/23 04:00 Creatinine 0.45 mg/dL (0.55-1.02) L 02/02/23 04:00 Glucose 87 mg/dL (74-106) 02/02/23 04:00 Phosphorus 1.7 mg/dL (2.5-4.9) L 01/31/23 05:46 Magnesium 1.7 mg/dL (1.6-2.4) 02/02/23 04:00 Total Bilirubin 0.6 mg/dL (0.2-1.0) 01/30/23 07:20 AST 23 U/L (15-37) 01/30/23 07:20 ALT 20 U/L (13-56) 01/30/23 07:20 Alkaline Phosphatase 101 U/L (45-117) 01/30/23 07:20 Triglycerides 94 mg/dL (<150) 01/31/23 05:46 Cholesterol 110 mg/dL (<200) 01/31/23 05:46 HDL Cholesterol 39 mg/dL (40-60) L 01/31/23 05:46 Cholesterol/HDL Ratio 2.82 01/31/23 05:46 Lipase 24 U/L (13-75) 01/30/23 07:20 Home Medications: Albuterol Sulfate [Proventil Hfa] 2 puff PO Q6H PRN 12/16/17 Fluoxetine HCl [Prozac*] 40 mg PO DAILY 12/16/17 Gabapentin [Neurontin*] 300 mg PO BEDTIME 12/16/17 Omeprazole [Prilosec] 40 mg PO DAILY 12/16/17 Zolpidem Tartrate [Zolpidem Tartrate ER] 10 mg PO BEDTIME 12/16/17 Atorvastatin Calcium [Lipitor*] 40 mg PO DAILY 01/31/23 Hydrocodone Bit/Acetaminophen [[place] 10-325 Tablet] 10 - 325 mg PO Q6H PRN 01/31/23 Semaglutide [Ozempic] 2 mg SQ Q7D 01/31/23 Tizanidine [Zanaflex*] 4 mg PO BEDTIME 01/31/23 clonazePAM [Clonazepam] 1 mg PO DAILY 01/31/23 clonazePAM [Clonazepam] 2 mg PO BEDTIME 01/31/23 predniSONE [Prednisone*] 5 mg PO DAILY 01/31/23 Phenazopyrididine [Pyridium*] 200 mg PO TID PRN #30 tab 02/02/23 levoFLOXacin [Levaquin] 500 mg PO DAILY #14 tab 02/02/23 New Medications: levoFLOXacin [Levaquin] 500 mg PO DAILY #14 tab Phenazopyrididine [Pyridium*] 200 mg PO TID PRN #30 tab PRN Reason: dysuria Physician Discharge Instructions: -DC IV and DC home -Follow-up with PCP in 1 to 2 weeks -Follow-up with urology y in 1 to 2 weeks -Please call Dr. Hernandez at [phone] if any questions regarding hospital stay -Please call nursing station at [phone] if any nursing or medication questions -Return to the emergency room if symptoms worsen Diet: AHA Activity: Fall precautions Followup: NONE,NONE [Primary Care Provider] - Time spent managing pt's care (in minutes): 35
[2023-02-02] MEDS ORDERED: HYDROCORTISONE SUC 100 MG INJ IV ONE (09:30)
[2023-02-02] MEDS ORDERED: Levofloxacin 750mg IV 750 MG/150 ML BAG IV SCH (10:00)
[2023-02-02] MEDS: ACETAMINOPHEN 500 MG TAB PO PRN (10:40)
--- NOTE | 2023-02-02 11:37 | P.PN ---
Subjective Date of Service: 02/02/23 Chief Complaint: Obstructing Nephrolithiasis Physical Examination - Vital Signs Temperature: 97.7 F Blood Pressure: 92/59 Pulse: 88 Respirations: 16 Pulse Ox (%): 90 - Physical Exam General: Alert, Oriented x3 HEENT: Atraumatic, Normocephalic Neck: Supple, JVD not distended Respiratory: Clear to auscultation bilaterally Cardiovascular: Normal S1 S2 Gastrointestinal: Normal bowel sounds Musculoskeletal: No clubbing, No swelling Neurological: Normal speech, Normal tone, Normal affect Urinary: Dunn catheter - Studies Lab data reviewed Microbiology Data (last 24 hrs): 01/30/23 08:40 Clean Catch Urine Morton Count - Final >100,000 CFU/ML. 01/30/23 08:40 Clean Catch Urine - Final Escherichia Coli Gram Neg Tom Imagings Data: Reviewed Active Medications Acetaminophen (Acetaminophen 500 Mg Tab) 1,000 mg PO Q6H PRN PRN Reason: Pain scale 2-4 (Mild) Last Admin: 02/02/23 10:40 Dose: 1,000 mg Enoxaparin Sodium (Enoxaparin 40 Mg/0.4 Ml) 40 mg SQ DAILY [facility] Last Admin: 02/02/23 08:43 Dose: 40 mg Fentanyl Citrate (Fentanyl Citr 100 Mcg/2 Ml) 25 mcg IV Q4H PRN PRN Reason: Pain scale 8-10 (Severe) Last Admin: 02/01/23 12:46 Dose: 25 mcg Sodium Chloride (Ns 1000 Ml Ivbag) 1,000 mls @ 100 mls/hr IV .Q10H [facility] Last Admin: 02/02/23 08:53 Dose: Not Given Levofloxacin/Dextrose (Levaquin 750 Mg/150 Ml Ivpb (Premix)) 750 mg in 150 mls @ 100 mls/hr IV Q24H [facility]AM; Protocol Last Admin: 02/02/23 10:40 Dose: 150 mls Melatonin (Melatonin 5 Mg Tablet) 10 mg PO BEDTIME PRN PRN PRN Reason: INSOMNIA Last Admin: 02/01/23 23:16 Dose: 10 mg Mupirocin (Mupirocin Nasal 2 Appl/1 Gm Tube) 1 appl TREMAYNE BID PHAM Stop: 02/02/23 21:01 Last Admin: 02/02/23 08:53 Dose: 2 appl Ondansetron HCl (Ondansetron 4 Mg/2 Ml Vial) 4 mg IV Q6HP PRN PRN Reason: NAUSEA / VOMITING Pantoprazole Sodium (Pantoprazole 40mg Tablet) 40 mg PO BIDAC PHAM; Protocol Last Admin: 02/02/23 08:42 Dose: 40 mg Phenazopyridine HCl (Phenazopyridine 100mg Tab) 200 mg PO TID PRN PRN Reason: dysuria Last Admin: 01/31/23 08:01 Dose: 200 mg Sodium Chloride (Flush Normal Saline 10 Ml) 10 ml IV BID PHAM Last Admin: 02/02/23 08:54 Dose: 10 ml Medications List Reviewed: Yes Assessment And Plan - Plan Problems -Obstructive pyelonephritis -Septic shock -Hydronephrosis -Nephrolithiasis -COPD -Hyperlipidemia -Hypertension PLAN - 01/30 Urine Culture: Escherichia Coli ; sensitive to Levaquin - currently on IV Levaquin - upon discharge, switch to PO Levaquin Case discussed with Blu Saxena Physician Review: Patient Assessed, Agree with Above Assessment and Plan
== END 2023-02-02 16:05 | disposition home or self-care (01) | DRG 853 ==
LOC: ER 06:46 → ERHOLD 21:13 → 3RD-ICU 23:12 → 2ND 02-01 13:15
PROVIDERS: ADMIT Hospitalist; ATTEND Hospitalist
PROC: BT1F1ZZ Fluoroscopy of Left Kidney, Ureter and Bladder using Low Osmolar Contrast (ICD-10-PCS; 2023-01-30)
PROC: 0T778DZ Dilation of Left Ureter with Intraluminal Device, Via Natural or Artificial Opening Endoscopic (ICD-10-PCS; principal; 2023-01-30 22:00)
PROC: 02HV33Z Insertion of Infusion Device into Superior Vena Cava, Percutaneous Approach (ICD-10-PCS; 2023-01-31)
DX: A41.51 Sepsis due to Escherichia coli [E. coli] (principal); R65.21 Severe sepsis with septic shock; N13.6 Pyonephrosis; I10 Essential (primary) hypertension; K21.9 Gastro-esophageal reflux disease without esophagitis; E78.5 Hyperlipidemia, unspecified; G47.33 Obstructive sleep apnea (adult) (pediatric); J44.9 Chronic obstructive pulmonary disease, unspecified; F17.200 Nicotine dependence, unspecified, uncomplicated; Z88.6 Allergy status to analgesic agent; Z88.1 Allergy status to other antibiotic agents; Z60.2 Problems related to living alone; Z79.82 Long term (current) use of aspirin; Z90.49 Acquired absence of other specified parts of digestive tract; Z98.84 Bariatric surgery status; Z79.52 Long term (current) use of systemic steroids; Z91.048 Other nonmedicinal substance allergy status; Z79.899 Other long term (current) drug therapy; Z20.822 Contact with and (suspected) exposure to COVID-19
CPT/HCPCS: 0241U; 36415; 36569; 51600; 71045; 71250; 74176; 74430; 76770; 80048; 80053; 80061; 81001; 82947; 83605; 83690; 83735; 84100; 84145; 85025; 87040; 87077; 87086; 87088; 87186; 96361; 96365; 96366; 96367; 96375; 97116; 97161; 99291; 99292; J0692; J1630; J1650; J1720; J2185; J2405; J3010; J3475; J3480; J7030; J7120; J7613